=== PATIENT | female | born 1970 | race Caucasian/White ===

== ENCOUNTER 2017-05-05 17:14 | Inpatient (IN) ==
[2017-05-05 17:53] LABS: Bilirubin,Urine Negative (Negative); Blood,Urine Negative (Negative); Color,Urine Yellow (Yellow); Glucose,Urine (UA) Normal (Normal); Ketones,Urine Negative (Negative); Leukocyte Esterase,Urine Negative (Negative); Nitrite,Urine Negative (Negative); Protein,Urine Negative (Neg-Trace); Specific Gravity,Urine 1.009 (1.010-1.025); Urobilinogen,Urine Normal (Normal)
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
[2017-05-05 17:58] LABS: Amphetamine Screen,Urine Negative ng/mL (Cutoff=1000); Barbiturate Screen,Urine Negative ng/mL (Cutoff=200); Benzodiazepines Screen,Urine Negative ng/mL (Cutoff=200); Cannabinoid Screen,Urine Negative ng/mL (Cutoff = 50); Cocaine Screen,Urine Negative ng/mL (Cutoff= 300); Opiate Screen,Urine Negative ng/mL (Cutoff=300); Phencyclidine Screen,Urine Negative ng/mL (Cutoff=25)
[2017-05-05 18:01] LABS: Clarity,Urine Clear (Clear)
[2017-05-05 18:18] LABS: Basophils # 0.1 K/mcL (0.0-0.2); Basophils % 0.6 %; Eosinophils # 0.2 K/mcL (0.0-0.6); Eosinophils % 1.6 %; Hemoglobin 11.8 g/dL (11.5-15.4); Immature Granulocytes % 0.5 % (0-4); Lymphocytes # 2.6 K/mcL (0.6-4.6); Lymphocytes % 21.4 %; Mean Corpuscular HGB Conc 34.7 g/dL (31.6-35.5); Mean Corpuscular Hemoglobin 29.3 pg (28.0-33.3); Mean Corpuscular Volume 84.4 fL (83.0-100.0); Mean Platelet Volume 8.7 fL (9.4-12.4); Monocytes # 0.7 K/mcL (0.0-1.3); Monocytes % 5.8 %; Neutrophils # 8.5 K/mcL (1.6-8.9); Platelet Count 460 K/mcL (140-400); Red Blood Count 4.03 M/mcL (3.82-4.97); Red Cell Distribution Width 12.6 % (11.5-14.5); Segmented Neutrophils % 70.1 %
[2017-05-05 18:32] LABS: BUN/Creatinine Ratio 15 (6-26); Blood Urea Nitrogen 12 mg/dL (7-20); Calcium 9.6 mg/dL (8.6-10.8); Carbon Dioxide 22 mEq/L (19-29); Chloride 107 mEq/L (98-109); Glucose 101 mg/dL (70-99); Osmolality,Calculated 290 (280-300); Potassium 3.4 mEq/L (3.5-4.5); Sodium 140 mEq/L (136-145); eGFR For African Americans > 60 (> 60); eGFR For Non-African Americans > 60 (> 60)
[2017-05-05 18:44] LABS: Acetaminophen < 1.0 mcg/mL (10-30); Ethanol < 10 mg/dL (0-10); Salicylate < 5.0 mg/dL (15-30)
[2017-05-05] MEDS ORDERED: *HR* LORazepam 0.5 MG TABLET PO ONE (20:12)
[2017-05-05] MEDS ORDERED: *HR* LORazepam 2 MG/ML VIAL IM PRN (21:20)
[2017-05-05] MEDS ORDERED: MOM Conc 10 ML UD.LIQ PO PRN (21:20)
[2017-05-05] MEDS ORDERED: Mag Hydrox/Al Hydrox/Simeth 30 ML UDC PO PRN (21:20)
[2017-05-05] MEDS ORDERED: *HR* LORazepam 1 MG TABLET PO PRN (21:20)
[2017-05-05] MEDS ORDERED: Haloperidol Lactate 5 MG/ML VIAL IM PRN (21:20)
[2017-05-05] MEDS: Acetaminophen 325 MG TABLET PO PRN (22:02)
[2017-05-05] MEDS: traZODone 50 MG TABLET PO PRN (22:02)
[2017-05-06] MEDS ORDERED: FLUoxetine 20 MG CAPSULE PO SCH ×2 (09:00→13:50)
[2017-05-06] MEDS: Propranolol LA (24 HR) 80 MG CAP.SA.24H PO SCH (09:02)
[2017-05-06] MEDS: Losartan/HCTZ 50-12.5 TABLET PO SCH (09:02)
[2017-05-06] MEDS: *HR* Metformin 500 MG TABLET PO SCH (09:02)
[2017-05-06] MEDS ORDERED: FLUoxetine HCl Oral Soln 20 MG/5 ML UDC PO ONE (14:13)
[2017-05-06] MEDS: Acetaminophen 325 MG TABLET PO PRN (14:51)
[2017-05-06] MEDS: Gabapentin 100 MG CAPSULE PO SCH ×2 (14:52→20:40)
--- NOTE | 2017-05-06 16:03 | Psychiatry History & Physical ---
Date of Encounter: 05/06/17 Time of Encounter: 11:50 History of Present Illness Patient Stated Chief Complaint: "Im having anxiety and panic attack Medicare Admission Attestation: For traditional Medicare patients the provided hospital inpatient services are reasonable and necessary and in the case of services not specified as inpatient -only under 42 CFR 419.22 (n), that they are appropriately provided as inpatient services in accordance 42 CFR 412.3. For Critical Access Hospital the patient may reasonably be expected to be discharged or transferred to a hospital within 96 hours after admission to the Critical Access Hospital. History of Present Illness: Ms. Anne is a 47 year old female Past Med Surg Social Fam HX - Past Medical History Medical history: diabetes, GERD, hypertension, thyroid disease - Past Surgical History Surgical History: cholecystectomy - Social History Smoking Status: Never smoker Smokeless Tobacco Status: No Alcohol use: none Drug use: none - Family History Father Family Member Ethnicity: Non- Living Status: Hx Family Cardiac Disorders: Yes Medications & Allergies Cyclobenzaprine HCl 5 mg PO HS PRN 05/02/16 [History] Dicyclomine [Bentyl] 10 mg PO TID PRN 05/02/16 [History] Estradiol [Estrace] 1 mg PO DAILY 05/02/16 [History] FLUoxetine HCl [Prozac] 40 mg PO DAILY 05/02/16 [History] Levothyroxine [Synthroid] 150 mcg PO DAILY 05/02/16 [History] Omeprazole [PriLOSEC] 40 mg PO BID 05/02/16 [History] metFORMIN [Glucophage] 500 mg PO DAILY 05/02/16 [History] Propranolol LA (24 HR) [Inderal LA] 80 mg PO DAILY 05/05/17 [History] Aripiprazole [Abilify] 2.5 mg PO DAILY 05/06/17 [History] Buspirone HCl [Buspar] 5 mg PO TID 05/06/17 [History] LORazepam [Ativan] 1 mg PO DAILY PRN 05/06/17 [History] Losartan [Cozaar] 25 mg PO DAILY 05/06/17 [History] hydroCHLOROthiazide [Hydrochlorothiazide] 12.5 mg PO DAILY 05/06/17 [History] Allergies Oxycodone [From Percocet] Allergy (Verified 04/26/17 04:59) See Comments Results - Vital Signs Vital signs: Temp Pulse Resp BP Pulse Ox 97.8 F 79 20 121/71 97 05/06/17 09:00 05/06/17 09:00 05/06/17 09:00 05/06/17 09:00 05/05/17 20:34 - Labs Labs: Laboratory Last Values WBC 12.1 K/mcL (4.3-11.1) H 05/05/17 18:11 RBC 4.03 M/mcL (3.82-4.97) 05/05/17 18:11 Hgb 11.8 g/dL (11.5-15.4) 05/05/17 18:11 Hct 34.0 % (35.3-44.9) L 05/05/17 18:11 MCV 84.4 fL (83.0-100.0) 05/05/17 18:11 MCH 29.3 pg (28.0-33.3) 05/05/17 18:11 MCHC 34.7 g/dL (31.6-35.5) 05/05/17 18:11 RDW 12.6 % (11.5-14.5) 05/05/17 18:11 Plt Count 460 K/mcL (140-400) H 05/05/17 18:11 MPV 8.7 fL (9.4-12.4) L 05/05/17 18:11 Immature Gran % 0.5 % (0-4) 05/05/17 18:11 Seg Neutrophils % 70.1 % 05/05/17 18:11 Lymphocytes % 21.4 % 05/05/17 18:11 Monocytes % 5.8 % 05/05/17 18:11 Eosinophils % 1.6 % 05/05/17 18:11 Basophils % 0.6 % 05/05/17 18:11 Neutrophils # 8.5 K/mcL (1.6-8.9) 05/05/17 18:11 Lymphocytes # 2.6 K/mcL (0.6-4.6) 05/05/17 18:11 Monocytes # 0.7 K/mcL (0.0-1.3) 05/05/17 18:11 Eosinophils # 0.2 K/mcL (0.0-0.6) 05/05/17 18:11 Basophils # 0.1 K/mcL (0.0-0.2) 05/05/17 18:11 Sodium 140 mEq/L (136-145) 05/05/17 18:11 Potassium 3.4 mEq/L (3.5-4.5) L 05/05/17 18:11 Chloride 107 mEq/L (98-109) 05/05/17 18:11 Carbon Dioxide 22 mEq/L (19-29) 05/05/17 18:11 BUN 12 mg/dL (7-20) 05/05/17 18:11 Creatinine 0.81 mg/dL (0.57-1.11) 05/05/17 18:11 Est GFR ( Amer) > 60 (> 60) 05/05/17 18:11 Est GFR (Non-Af Amer) > 60 (> 60) 05/05/17 18:11 BUN/Creatinine Ratio 15 (6-26) 05/05/17 18:11 Glucose 101 mg/dL (70-99) H 05/05/17 18:11 POC Glucose 105 (58-89) H 05/06/17 06:41 Calculated Osmolality 290 (280-300) 05/05/17 18:11 Calcium 9.6 mg/dL (8.6-10.8) 05/05/17 18:11 Urine Color Yellow (Yellow) 05/05/17 17:41 Urine Clarity Clear (Clear) 05/05/17 17:41 Urine pH 6.0 pH Units (5.0-8.0) 05/05/17 17:41 Ur Specific [place] 1.009 (1.010-1.025) L 05/05/17 17:41 Urine Protein Negative mg/dL (Neg-Trace) 05/05/17 17:41 Urine Glucose (UA) Normal mg/dL (Normal) 05/05/17 17:41 Urine Ketones Negative mg/dL (Negative) 05/05/17 17:41 Urine Blood Negative (Negative) 05/05/17 17:41 Urine Nitrite Negative (Negative) 05/05/17 17:41 Urine Bilirubin Negative (Negative) 05/05/17 17:41 Urine Urobilinogen Normal mg/dL (Normal) 05/05/17 17:41 Ur Leukocyte Esterase Negative (Negative) 05/05/17 17:41 Salicylates < 5.0 mg/dL (15-30) L 05/05/17 18:11 Urine Opiates Screen Negative ng/mL (Dgelpg=172) 05/05/17 17:41 Acetaminophen < 1.0 mcg/mL (10-30) L 05/05/17 18:11 Ur Barbiturates Screen Negative ng/mL (Dmnqpp=484) 05/05/17 17:41 Ur Phencyclidine Scrn Negative ng/mL (Cutoff=25) 05/05/17 17:41 Ur Amphetamines Screen Negative ng/mL (Uuftvy=2048) 05/05/17 17:41 U Benzodiazepines Scrn Negative ng/mL (Ozgzue=323) 05/05/17 17:41 Urine Cocaine Screen Negative ng/mL (Cutoff= 300) 05/05/17 17:41 U Marijuana (THC) Screen Negative ng/mL (Cutoff = 50) 05/05/17 17:41 Ethyl Alcohol < 10 mg/dL (0-10) 05/05/17 18:11
--- NOTE | 2017-05-06 16:58 | Psychiatry History & Physical ---
Date of Encounter: 05/06/17 Time of Encounter: 11:00 History of Present Illness Medicare Admission Attestation: For traditional Medicare patients the provided hospital inpatient services are reasonable and necessary and in the case of services not specified as inpatient -only under 42 CFR 419.22 (n), that they are appropriately provided as inpatient services in accordance 42 CFR 412.3. For Critical Access Hospital the patient may reasonably be expected to be discharged or transferred to a hospital within 96 hours after admission to the Critical Access Hospital. 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 Patient was seen and evaluated at this morning, she was calm, cooperative and well related. She explained she was recently started on BuSpar and Abilify by primary care physician in the setting of recent increase in anxiety and depressive symptoms. Patient explained she self discontinued her abilify due to feelings of extreme discomfort when sitting and wanting to crawl out of skin. She symptoms comtinue to get progressively worse despite her PCP increasing her dose of Buspar with increasing frequency and duration of panic attacks. She also reports worsoning of deprdssive symptoms on her medications. She also has not been sleeping well the past couple of weeks. On review of symptoms, she denied other mood or psychotic symptoms incluidng recent symptoms of vladimir, AHVH/SI/HI. Patient denied recent or past us eof illicit drugs Admitted From: Home History of Present Illness: Ms. Anne is a 47 year old female Past Med Surg Social Fam HX - Past Medical History Medical history: diabetes, GERD, hypertension, thyroid disease - Past Surgical History Surgical History: cholecystectomy - Social History Smoking Status: Never smoker Smokeless Tobacco Status: No Alcohol use: none Drug use: none - Family History Father Family Member Ethnicity: Non- Living Status: Hx Family Cardiac Disorders: Yes Medications & Allergies Cyclobenzaprine HCl 5 mg PO HS PRN 05/02/16 [History] Dicyclomine [Bentyl] 10 mg PO TID PRN 05/02/16 [History] Estradiol [Estrace] 1 mg PO DAILY 05/02/16 [History] FLUoxetine HCl [Prozac] 40 mg PO DAILY 05/02/16 [History] Levothyroxine [Synthroid] 150 mcg PO DAILY 05/02/16 [History] Omeprazole [PriLOSEC] 40 mg PO BID 05/02/16 [History] metFORMIN [Glucophage] 500 mg PO DAILY 05/02/16 [History] Propranolol LA (24 HR) [Inderal LA] 80 mg PO DAILY 05/05/17 [History] Aripiprazole [Abilify] 2.5 mg PO DAILY 05/06/17 [History] Buspirone HCl [Buspar] 5 mg PO TID 05/06/17 [History] LORazepam [Ativan] 1 mg PO DAILY PRN 05/06/17 [History] Losartan [Cozaar] 25 mg PO DAILY 05/06/17 [History] hydroCHLOROthiazide [Hydrochlorothiazide] 12.5 mg PO DAILY 05/06/17 [History] Allergies Oxycodone [From Percocet] Allergy (Verified 04/26/17 04:59) See Comments Review of Systems Constitutional: Denies: fever, chills, weakness, weight change Eyes: Denies: eye pain, vision change Ears, Nose, Throat: Denies: ear pain, throat pain, dental pain, hearing loss, congestion Cardiovascular: Denies: chest pain, palpitations, dyspnea on exertion Respiratory: Denies: cough, dyspnea, wheezes Gastrointestinal: Denies: abdominal pain, nausea, vomiting, diarrhea, constipation Genitourinary male: Denies: urgency, dysuria, frequency, genital lesions Genitourinary female: Denies: urgency, dysuria, frequency, abnormal menses, dyspareunia Musculoskeletal: Denies: joint swelling, joint pain Integumentary: Denies: rash, lesions, pruritus Neurological: Denies: headache, weakness, numbness, memory loss Endocrine: Denies: fatigue, heat or cold intolerance Hematologic/Lymphatic: Denies: easy bruising, lymphadenopathy Allergic/Immunologic: Denies: urticaria, itchy eyes Results - Vital Signs Vital signs: Temp Pulse Resp BP Pulse Ox 97.8 F 79 20 121/71 97 05/06/17 09:00 05/06/17 09:00 05/06/17 09:00 05/06/17 09:00 05/05/17 20:34 - Labs Labs: Laboratory Last Values WBC 12.1 K/mcL (4.3-11.1) H 05/05/17 18:11 RBC 4.03 M/mcL (3.82-4.97) 05/05/17 18:11 Hgb 11.8 g/dL (11.5-15.4) 05/05/17 18:11 Hct 34.0 % (35.3-44.9) L 05/05/17 18:11 MCV 84.4 fL (83.0-100.0) 05/05/17 18:11 MCH 29.3 pg (28.0-33.3) 05/05/17 18:11 MCHC 34.7 g/dL (31.6-35.5) 05/05/17 18:11 RDW 12.6 % (11.5-14.5) 05/05/17 18:11 Plt Count 460 K/mcL (140-400) H 05/05/17 18:11 MPV 8.7 fL (9.4-12.4) L 05/05/17 18:11 Immature Gran % 0.5 % (0-4) 05/05/17 18:11 Seg Neutrophils % 70.1 % 05/05/17 18:11 Lymphocytes % 21.4 % 05/05/17 18:11 Monocytes % 5.8 % 05/05/17 18:11 Eosinophils % 1.6 % 05/05/17 18:11 Basophils % 0.6 % 05/05/17 18:11 Neutrophils # 8.5 K/mcL (1.6-8.9) 05/05/17 18:11 Lymphocytes # 2.6 K/mcL (0.6-4.6) 05/05/17 18:11 Monocytes # 0.7 K/mcL (0.0-1.3) 05/05/17 18:11 Eosinophils # 0.2 K/mcL (0.0-0.6) 05/05/17 18:11 Basophils # 0.1 K/mcL (0.0-0.2) 05/05/17 18:11 Sodium 140 mEq/L (136-145) 05/05/17 18:11 Potassium 3.4 mEq/L (3.5-4.5) L 05/05/17 18:11 Chloride 107 mEq/L (98-109) 05/05/17 18:11 Carbon Dioxide 22 mEq/L (19-29) 05/05/17 18:11 BUN 12 mg/dL (7-20) 05/05/17 18:11 Creatinine 0.81 mg/dL (0.57-1.11) 05/05/17 18:11 Est GFR ( Amer) > 60 (> 60) 05/05/17 18:11 Est GFR (Non-Af Amer) > 60 (> 60) 05/05/17 18:11 BUN/Creatinine Ratio 15 (6-26) 05/05/17 18:11 Glucose 101 mg/dL (70-99) H 05/05/17 18:11 POC Glucose 105 (58-89) H 05/06/17 06:41 Calculated Osmolality 290 (280-300) 05/05/17 18:11 Calcium 9.6 mg/dL (8.6-10.8) 05/05/17 18:11 Urine Color Yellow (Yellow) 05/05/17 17:41 Urine Clarity Clear (Clear) 05/05/17 17:41 Urine pH 6.0 pH Units (5.0-8.0) 05/05/17 17:41 Ur Specific [place] 1.009 (1.010-1.025) L 05/05/17 17:41 Urine Protein Negative mg/dL (Neg-Trace) 05/05/17 17:41 Urine Glucose (UA) Normal mg/dL (Normal) 05/05/17 17:41 Urine Ketones Negative mg/dL (Negative) 05/05/17 17:41 Urine Blood Negative (Negative) 05/05/17 17:41 Urine Nitrite Negative (Negative) 05/05/17 17:41 Urine Bilirubin Negative (Negative) 05/05/17 17:41 Urine Urobilinogen Normal mg/dL (Normal) 05/05/17 17:41 Ur Leukocyte Esterase Negative (Negative) 05/05/17 17:41 Salicylates < 5.0 mg/dL (15-30) L 05/05/17 18:11 Urine Opiates Screen Negative ng/mL (Rmldaw=120) 05/05/17 17:41 Acetaminophen < 1.0 mcg/mL (10-30) L 05/05/17 18:11 Ur Barbiturates Screen Negative ng/mL (Wilola=053) 05/05/17 17:41 Ur Phencyclidine Scrn Negative ng/mL (Cutoff=25) 05/05/17 17:41 Ur Amphetamines Screen Negative ng/mL (Apmfbh=4444) 05/05/17 17:41 U Benzodiazepines Scrn Negative ng/mL (Rjwzxr=836) 05/05/17 17:41 Urine Cocaine Screen Negative ng/mL (Cutoff= 300) 05/05/17 17:41 U Marijuana (THC) Screen Negative ng/mL (Cutoff = 50) 05/05/17 17:41 Ethyl Alcohol < 10 mg/dL (0-10) 05/05/17 18:11 Assessment and Plan (1) History of OCD (obsessive compulsive disorder) Current visit: Yes Status: Acute (2) Anxiety and depression Current visit: Yes Status: Acute
[2017-05-06] MEDS: *HR* LORazepam 1 MG TABLET PO PRN (20:40)
[2017-05-07] MEDS: FLUoxetine 20 MG CAPSULE PO SCH (08:44)
[2017-05-07] MEDS: Losartan/HCTZ 50-12.5 TABLET PO SCH (08:45)
[2017-05-07] MEDS: Propranolol LA (24 HR) 80 MG CAP.SA.24H PO SCH (08:45)
[2017-05-07] MEDS: *HR* Metformin 500 MG TABLET PO SCH (08:45)
[2017-05-07] MEDS: Gabapentin 100 MG CAPSULE PO SCH ×3 (08:46→20:26)
--- NOTE | 2017-05-07 14:54 | Psychiatry Progress Note ---
Date of Encounter: 05/07/17 Time of Encounter: 14:10 Subjective Interval history: Patient seen this afternoon in the office. She appeared less anxious and more relaxed. She reported mild to moderate improvement in her symptoms. She reported one episode of a panic attack last night which subsided without the need for a PRN medication. Has been able to tolerate increase dose of Prozac and Gabapentin without any noted side effect. She is sleeping well. Continues to endorse excessive worrying especially about her new job and depressive symptoms. Staff noted patient is more interactive with other clients. Family came to visit yesterday and patient reportedly had a good time with them. She also spent a long time on the phone talking after they left. On review of symptoms, she denied other mood or psychotic symptoms including AH/VH/SI/HI. We will continue with current management. Review of Systems Constitutional: Denies: fever, chills, weakness, weight change Eyes: Denies: eye pain, vision change Ears, Nose, Throat: Denies: ear pain, throat pain, dental pain, hearing loss, congestion Cardiovascular: Denies: chest pain, palpitations, dyspnea on exertion Respiratory: Denies: cough, dyspnea, wheezes Gastrointestinal: Denies: abdominal pain, nausea, vomiting, diarrhea, constipation Musculoskeletal: Denies: joint swelling, joint pain Neurological: Denies: headache, weakness, numbness, memory loss Objective: Exam Patient orientation: Yes Person, Yes Time, Yes Place Level of alertness: Alert Patient appearance: Appropriate, Well Groomed Behavior: calm, cooperative, anxious Psychomotor activity: Normal Eye contact: Maintains Eye Contact Mood description: Depressed Affect description: full range Speech pattern: Normal rate, Normal rhythm, Normal tone Speech volume: Normal Thought process: Linear, Goal Oriented Thought content: No Suicidal ideation, No Homicidal ideation, No Overt delusions Perceptual disturbances: No Auditory hallucinations, No Visual hallucinations Judgment: Fair Insight: Partial Results - Vital Signs Vital Signs: Temp Pulse Resp BP Pulse Ox 98 F 76 16 120/70 97 05/07/17 09:00 05/07/17 09:00 05/07/17 09:00 05/07/17 09:00 05/05/17 20:34 - Labs Labs: Laboratory Results - last 24 hr 05/06/17 05/07/17 16:46 06:39 POC Glucose 117 H 104 H Assessment and Plan (1) History of OCD (obsessive compulsive disorder) Current visit: Yes Status: Acute (2) Anxiety and depression Current visit: Yes Status: Acute Consult Discharge Plan - Plan Referrals: Chase Hooker [facility] [Outside] - 05/16/17 6:00 pm (The above appointment is with Alicia Locke for mental health counseling services.) Liana Torres CNP [Partnered Physician] - 05/17/17 3:20 pm (The above appointment is with Hector Torres, primary care provider, for ongoing health and medication management services. )
[2017-05-07] MEDS: traZODone 50 MG TABLET PO PRN (20:26)
[2017-05-07] MEDS: *HR* LORazepam 1 MG TABLET PO PRN (20:26)
[2017-05-07] MEDS: Acetaminophen 325 MG TABLET PO PRN (20:28)
[2017-05-08] MEDS: Propranolol LA (24 HR) 80 MG CAP.SA.24H PO SCH (08:38)
[2017-05-08] MEDS: FLUoxetine 20 MG CAPSULE PO SCH (08:38)
[2017-05-08] MEDS: *HR* Metformin 500 MG TABLET PO SCH (08:38)
[2017-05-08] MEDS: Losartan/HCTZ 50-12.5 TABLET PO SCH (08:38)
[2017-05-08] MEDS: Gabapentin 100 MG CAPSULE PO SCH ×3 (08:38→21:14)
[2017-05-08] MEDS: Acetaminophen 325 MG TABLET PO PRN ×2 (12:03→22:29)
--- NOTE | 2017-05-08 13:17 | Psychiatry Progress Note ---
Date of Encounter: 05/08/17 Time of Encounter: 13:00 Subjective Interval history: Patient seen this afternoon. There were no reported incident overnigh. She reported moderate improvement in both symptoms of anxiety and depression. Reports significant decrease in intensity of anxiety and is able to breath through a symptoms without the need for PRM med. Reports increase in energy level and motivation. She is compliant with her medications and denied any noted side effect. Sleeping and eating well. On review of symptoms, she denied other mood or psychotic symptoms including AH/VH/SI/HI. Will increase dose of Gabapentin to help optimize stabilization. Review of Systems Constitutional: Denies: fever, chills, weakness, weight change Eyes: Denies: eye pain, vision change Ears, Nose, Throat: Denies: ear pain, throat pain, dental pain, hearing loss, congestion Cardiovascular: Denies: chest pain, palpitations, dyspnea on exertion Respiratory: Denies: cough, dyspnea, wheezes Gastrointestinal: Denies: abdominal pain, nausea, vomiting, diarrhea, constipation Musculoskeletal: Denies: joint swelling, joint pain Neurological: Denies: headache, weakness, numbness, memory loss Psychiatric: Reports: depression, anxiety, panic attacks Objective: Exam Patient orientation: Yes Person, Yes Time, Yes Place Level of alertness: Alert Patient appearance: Appropriate, Well Groomed Behavior: calm, cooperative Psychomotor activity: Normal Eye contact: Maintains Eye Contact Mood description: Euthymic/stable Affect description: congruent with mood, full range Speech pattern: Normal rate, Normal rhythm, Normal tone Speech volume: Normal Thought process: Linear, Goal Oriented Thought content: No Suicidal ideation, No Homicidal ideation, No Overt delusions Perceptual disturbances: No Auditory hallucinations, No Visual hallucinations Judgment: Fair Insight: Partial Results - Vital Signs Vital Signs: Temp Pulse Resp BP Pulse Ox 97.8 F 87 16 136/75 97 05/08/17 09:00 05/08/17 09:00 05/08/17 09:00 05/08/17 09:00 05/05/17 20:34 - Labs Labs: Laboratory Results - last 24 hr 05/07/17 05/08/17 16:07 07:00 POC Glucose 128 H 107 H Assessment and Plan (1) History of OCD (obsessive compulsive disorder) Current visit: Yes Status: Acute (2) Anxiety and depression Current visit: Yes Status: Acute Consult Discharge Plan - Plan Referrals: Chase Merritt [facility] [Outside] - 05/16/17 6:00 pm (The above appointment is with Alicia Locke for mental health counseling services.) Liana Torres CNP [Partnered Physician] - 05/17/17 3:20 pm (The above appointment is with Hector Torres, primary care provider, for ongoing health and medication management services. )
[2017-05-08] MEDS: *HR* LORazepam 1 MG TABLET PO PRN (21:16)
[2017-05-09] MEDS: Propranolol LA (24 HR) 80 MG CAP.SA.24H PO SCH (08:14)
[2017-05-09] MEDS: Losartan/HCTZ 50-12.5 TABLET PO SCH (08:14)
[2017-05-09] MEDS: *HR* Metformin 500 MG TABLET PO SCH (08:14)
[2017-05-09] MEDS: FLUoxetine 20 MG CAPSULE PO SCH (08:14)
[2017-05-09] MEDS: Gabapentin 100 MG CAPSULE PO SCH (08:15)
--- NOTE | 2017-05-09 09:03 | Discharge Summary ---
Date of Encounter: 05/09/17 Time of Encounter: 10:30 Diagnosis - Discharge Diagnosis (1) History of OCD (obsessive compulsive disorder) Status: Chronic (2) Anxiety and depression Status: Resolved Medications - Discharge Medications Prescriptions: FLUoxetine HCl [Prozac] 60 mg PO DAILY #90 Gabapentin [Neurontin] 200 mg PO TID #180 Propranolol LA (24 HR) [Inderal LA] 80 mg PO DAILY #30 traZODone [TraZODone] 50 mg PO HS PRN #30 tab PRN Reason: Insomnia Estradiol [Estrace] 1 mg PO DAILY 05/02/16 [History] FLUoxetine HCl [Prozac] 40 mg PO DAILY 05/02/16 [History] Omeprazole [PriLOSEC] 40 mg PO BID 05/02/16 [History] metFORMIN [Glucophage] 500 mg PO DAILY 05/02/16 [History] LORazepam [Ativan] 1 mg PO DAILY PRN 05/06/17 [History] Losartan [Cozaar] 25 mg PO DAILY 05/06/17 [History] hydroCHLOROthiazide [Hydrochlorothiazide] 12.5 mg PO DAILY 05/06/17 [History] Cyclobenzaprine [Flexeril] 5 mg PO HS PRN tab 05/09/17 [Rx] Dicyclomine [Bentyl] 10 mg PO TID PRN 05/09/17 [Rx] FLUoxetine HCl [Prozac] 60 mg PO DAILY #90 05/09/17 [Rx] Gabapentin [Neurontin] 200 mg PO TID #180 05/09/17 [Rx] LORazepam [Ativan] 1 mg PO BID PRN tab 05/09/17 [Rx] Levothyroxine [Synthroid] 150 mcg PO 0630 tab 05/09/17 [Rx] Propranolol LA (24 HR) [Inderal LA] 80 mg PO DAILY #30 05/09/17 [Rx] traZODone [TraZODone] 50 mg PO HS PRN #30 tab 05/09/17 [Rx] Allergies Oxycodone [From Percocet] Allergy (Verified 04/26/17 04:59) See Comments Provider Date of admission: 05/05/17 20:43 Primary care physician: PCP NO Consults: 05/05/17 22:03 Consult to Pastoral Services [CONS] Routine Comment: Discharging clinician: Beryl Angela Assessment and Plan - Patient/Caregiver Discharge Instructions Activity: resume usual activities as tolerated Diet: regular diet - Follow up Plan Follow up with: Chase Hooker [facility] [Outside] - 05/16/17 6:00 pm (The above appointment is with Alicia Locke for mental health counseling services.) iLana Torres CNP [Partnered Physician] - 05/17/17 3:20 pm (The above appointment is with Hector Torres, primary care provider, for ongoing health and medication management services. ) Disposition: Home, Self-Care Hospital Course Hospital course: Ms. 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 Patient was transferred to the unit for stabilization. Patient progressively responded to her medications and in showing significant improvement in her anxiety and depressive symptoms with resolution of panic attacks and increased motivations and mood. She has been compliant with her medications and denied any noted side effects. She is sleeping and eating well.. Patient was seen and evaluated this morning. She was cam, cooperative and well related. She reported doing well and greed to her discharge today. On review of symptoms, she denied any mood, anxiety or psychotic symptoms including AH/VH/SI/HI. Patient logical and goal directed with good insight, impulse control and judgment. She is psychiatrically stable at this time and not deem a threat to self or others and is able to care for herself. - Time Spent with Patient Total time spent providing and/or coordinating discharge services: Quality - Multiple Antipsychotics Patient discharged on 2 or more antipsychotic medications: No Procedures - Procedures Procedures: Medication Management, Crisis Stabilization, Supportive Therapy, Group Therapy, Psychoeducational Therapy Mental Status Exam - Mental Status Exam Patient orientation: Yes Person, Yes Time, Yes Place Level of alertness: Alert Patient appearance: Appropriate, Well Groomed Behavior: calm, cooperative Psychomotor activity: Normal Eye contact: Maintains Eye Contact Mood description: Euthymic/stable Affect description: congruent with mood, full range Speech pattern: Normal rate, Normal rhythm, Normal tone Speech Volume: Normal Thought process: Linear, Goal Oriented Thought Content: No Suicidal ideation, No Homicidal ideation, No Overt delusions Perceptual Disturbances: No Auditory hallucinations, No Visual hallucinations Judgment: Fair Insight: Partial
[2017-05-09 09:19] VITALS: BP 128/69
== END 2017-05-09 13:00 | disposition home or self-care (01) | DRG 882 ==
LOC: EMEROO 17:14 → 1ANU 20:43 → SUATTDRO 20:43 → 1ANU 20:50
PROVIDERS: ADMIT Psychiatry & Neurology Psychiatry; ATTEND Psychiatry & Neurology Psychiatry

== ENCOUNTER 2017-07-13 14:42 | Inpatient (IN) ==
[2017-07-13] MEDS ORDERED: *HR* HYDROcodone/Acet 5/325 mg TABLET PO PRN (20:21)
[2017-07-13] MEDS ORDERED: Naloxone 0.4 MG/ML INJ IVP PRN (20:23)
[2017-07-13] MEDS ORDERED: *HR* Dextrose 50 % in Water (Syg) 50 ML SYRINGE IVP PRN (20:29)
[2017-07-13] MEDS ORDERED: D5% in Water 1,000 ML IVC PRN (20:29)
[2017-07-13] MEDS ORDERED: Dextrose Gel 15 GM PO PRN ×2 (20:29)
--- NOTE | 2017-07-13 20:38 | Internal Med History&Physical ---
<Quinten Vázquez - Last Filed: 07/13/17 20:31> Date of Encounter: 07/13/17 Time of Encounter: 20:31 Assessment and Plan (1) Colitis Current visit: Yes Status: Acute Epigastric and lower abdominal pain, Ct concerning for enterocolitis. Patient may have underlying ulcerative colitis; pending further workup. She does not appear toxic, lactic acid 3 on arrival, recheck reveals a LA of 1.9, WBC 12.1, Will start Ciprofloxacin and flagyl, check CBC in am. IVF 0.9 NS 100ml/hr. Consider GI evaluation if patients condition declines. (2) Abdominal pain Current visit: Yes Status: Acute In the setting of colitis, will manage pain with [place] 5/325 Q4 hr prn. Consider adding Morphine of norco does not controll pain. Qualifiers: Abdominal location: generalized Qualified Code(s): R10.84 - Generalized abdominal pain (3) Diabetes mellitus type 2 in obese Current visit: Yes Status: Acute Stop metformin and start LSSIC, ac/hs checks Internal Medicine - H&P: HPI Chief complaint: abdominal pain, nausea and diarrhea Admitted From: Home Plans for Post Hospital Care: Home History of present illness: Ms. Anne is a 47 year old female with a PMH of HTN, DMII, hypothyroidism HTN , Gerd, anxiety/depression and abdominal polyps presents to [facility] today with abdominal pain and diarrhea with mucus in the stool. She reports that the abdominal pain began this morning but that the diarrhea has been ongoing for greater than 2.5 months. The pain is epigastric and in the lower abdomen, she admits to diarrhea x4 watery episodes today, nausea without vomiting, chills, fevers, and sweating. Ct abdomen in [facility] reveals possible colitis vs enterocolitis, lactic acid is 3. CBC and BMP unremarkable. Past Med Surg Social Fam HX - Past Medical History Medical history: diabetes, fibromyalgia, GERD, hypertension, thyroid disease Psychiatric history: anxiety, depression, previous psychiatric hospitalization - Past Surgical History Surgical History: appendectomy, , cholecystectomy, hysterectomy - Social History Smoking Status: Former smoker Smokeless Tobacco Status: No Alcohol use: none Drug use: none - Family History Father Age: 57 Family Member Ethnicity: Non- Living Status: Age at : 57 Cause of : CHF Hx Family Cardiac Disorders: Yes Hx Family Respiratory Disorders: Yes Hx Family Cancer: No Hx Family GI Disorders: Yes Hx Family Genitourinary Disorders: No Hx Family Endocrine Disorder: No Hx Family Musculoskeletal Disorders: No Hx Family Neuromuscular Disorders: Yes (Uncle) Hx Family Neurologic Disorders: No Hx Family HEENT Disorders: No Hx Family Autoimmune Disorders: No Hx Family Reproductive Disorders: No Hx Family Psychosocial Disorders: No Hx Family Medical Disorders: No Mother Age: 73 Family Member Ethnicity: Non- Living Status: Still Living Hx Family Cardiac Disorders: Yes Hx Family Respiratory Disorders: Yes Hx Family Cancer: No Hx Family GI Disorders: Yes Hx Family Genitourinary Disorders: No Hx Family Endocrine Disorder: No Hx Family Musculoskeletal Disorders: Yes Hx Family Neuromuscular Disorders: No Hx Family Neurologic Disorders: Yes (Brother MS) Hx Family HEENT Disorders: No Hx Family Autoimmune Disorders: No Hx Family Reproductive Disorders: No Hx Family Psychosocial Disorders: Yes Hx Family Medical Disorders: No Internal Medicine - H&P: Meds Estradiol [Estrace] 1 mg PO DAILY 05/02/16 [History] Omeprazole [PriLOSEC] 40 mg PO QAM 05/02/16 [History] metFORMIN [Glucophage] 500 mg PO DAILY 05/02/16 [History] Losartan [Cozaar] 25 mg PO DAILY 05/06/17 [History] hydroCHLOROthiazide [Hydrochlorothiazide] 12.5 mg PO DAILY 05/06/17 [History] Cyclobenzaprine [Flexeril] 5 mg PO HS PRN tab 05/09/17 [Rx] Levothyroxine [Synthroid] 150 mcg PO 0630 tab 05/09/17 [Rx] Propranolol LA (24 HR) [Inderal LA] 80 mg PO DAILY #30 05/09/17 [Rx] traZODone [TraZODone] 50 mg PO HS PRN #30 tab 05/09/17 [Rx] Dicyclomine [Bentyl] 10 mg PO TID PRN 07/13/17 [History] LORazepam [Ativan] 1 mg PO DAILY 07/13/17 [History] Lexapro 10 mg PO DAILY 07/13/17 [History] 3 Allergy/AdvReac Type Severity Reaction Status Date / Time amitriptyline Allergy Hives Verified 06/23/17 14:57 Oxycodone [From Percocet] Allergy Vomiting Verified 07/13/17 16:54 risperidone [From Risperdal] Allergy See Verified 06/23/17 14:57 Comments clarithromycin [From Biaxin] AdvReac Intermediate Vomiting Verified 07/13/17 16: 54 Biaxin AdvReac Severe Vomiting Uncoded 07/13/17 16:54 All Systems PM: A 10-system review of systems was performed and is negative for pertinent findings except as documented above in the HPI. - Constitutional Constitutional: chills, excessive sweating, fatigue, fever(s) (afebrile at this time.) - EENT Eyes: no change in vision, no discharge, no pain, no photophobia Ears: no ear discharge, no ear pain, no tinnitus Nose, mouth and throat: no dysphagia, no nasal discharge, no neck pain, no sore throat - Cardiovascular Cardiovascular ROS IM: no chest pain, no diaphoresis, no dyspnea, no lightheadedness, no palpitations, no syncope - Respiratory Respiratory: no cough, no dyspnea, no wheezing, no excessive phlegm production - Gastrointestinal Gastrointestinal: as per HPI, change in bowel habits, change in stool character , nausea, no abdominal pain, no coffee ground emesis, no diarrhea, no hematemesis, no hematochezia, no melena, no vomiting - Genitourinary Genitourinary: no change in urinary stream, no dysuria, no flank pain, no hematuria - Musculoskeletal Musculoskeletal ROS IM: no numbness, no tingling - Integumentary Integumentary IM: no rash, no unusual bruising - Neurological Neurological ROS: no confusion, no convulsions, no focal weakness, no numbness, no tingling, no tremor(s) - Hematologic/Lymphatic Hematologic/Lymphatic: no easy bruising - Constitutional Vitals: Temp Pulse Resp BP Pulse Ox 97.8 F 91 16 139/77 96 07/13/17 16:21 07/13/17 16:21 07/13/17 16:21 07/13/17 16:21 07/13/17 16:21 General appearance: Present: cooperative, A&O X 3, no acute distress, answers questions appropriately - Head Head exam: Present: atraumatic, normocephalic - Eye Eye exam: Present: PERRL, conjuntiva pink, sclera anicteric Pupils: Present: PERRL - Neck Neck exam general surgery: Present: supple, trachea midline. Absent: lymphadenopathy - Respiratory Respiratory exam: Present: CTAB. Absent: accessory muscle use, rales, rhonchi, wheezes - Cardiovascular Cardiovascular exam: Present: RRR, +S1, +S2. Absent: diastolic murmur, gallop, rubs, systolic murmur - GI/Abdominal GI/Abdominal exam: Present: normal bowel sounds, soft, tenderness, no peritoneal signs. Absent: distended, firm - Extremities Exam Extremities exam: Present: warm, radial pulses palpable and symmetrical. Absent : calf tenderness, cyanotic, pedal edema - Neurological Exam Neurological exam: Present: CN II-XII intact, oriented X3, no focal deficits. Absent: pronater drift, facial droop, speech deficit - Skin Skin exam: Present: dry, intact Internal Med - H&P Results - Diagnostic Studies CT scan - abdomen Status: image reviewed by me Additional comments: Ct via [facility] Audi show that there is fluid present within the colon indicating possible colitis, vs enterocolitis. <Sofia Burnham - Last Filed: 07/13/17 21:54> Date of Encounter: 07/13/17 Time of Encounter: 20:55 Internal Medicine - H&P: HPI History of present illness: Ms. Anne is a 47 year old female All Systems PM: A 10-system review of systems was performed and is negative for pertinent findings except as documented above in the HPI. - Constitutional Vitals: Temp Pulse Resp BP Pulse Ox 98.1 F 77 18 126/76 96 07/13/17 20:46 07/13/17 20:46 07/13/17 20:46 07/13/17 20:46 07/13/17 20:46 - Attending Attestation I have independently seen and examined the patient. Patient transferred from [facility] for management of abd pain secondary to colitis. Pt started on empiric IV abx. IV fluids, pain control She was initially noted to have elevated LA which has now normalized Pt reports of improvement in her pain. Reports history of having polpys for which she undergoes surveillance colonoscopy every five years, last colonoscopy was five years ago. CT abd/pelvis findings consistent with colitis. Will start clear liquid diet at this time and advance as tolerated Resumed patient's home medications Case discussed with ALVARO Vázquez, I agree with her documented findings, assessment, and plan except as listed above.
[2017-07-13] MEDS ORDERED: Gabapentin 100 MG CAPSULE PO SCH (21:00)
[2017-07-13] MEDS: 0.9 % Sodium Chloride 1,000 ML IVC SCH (21:24)
[2017-07-13] MEDS: Insulin LISPRO 300 UNITS/3 ML VIAL SQ SCH (21:28)
[2017-07-13] MEDS: Ondansetron 4 MG/2 ML VIAL IVP PRN (21:41)
[2017-07-13] MEDS: *HR* LORazepam 1 MG TABLET PO SCH (21:41)
[2017-07-13] MEDS: MetroNIDAZOLE 500 MG/100 ML 500 MG/100 ML BAG IVPB SCH (22:33)
[2017-07-13] MEDS: *HR* HYDROcodone/Acet 5/325 mg TABLET PO PRN (22:36)
[2017-07-13] MEDS: traZODone 50 MG TABLET PO PRN (22:37)
[2017-07-14] MEDS ORDERED: MetroNIDAZOLE 500 MG/100 ML 500 MG/100 ML BAG IVPB SCH
[2017-07-14 04:02] LABS: Basophils % 0.3 %; Eosinophils # 0.3 K/mcL (0.0-0.6); Hematocrit 29.8 % (35.3-44.9); Immature Granulocytes % 0.8 % (0-4); Lymphocytes # 2.4 K/mcL (0.6-4.6); Lymphocytes % 24.2 %; Mean Corpuscular HGB Conc 33.6 g/dL (31.6-35.5); Mean Corpuscular Volume 86.4 fL (83.0-100.0); Monocytes # 0.6 K/mcL (0.0-1.3); Monocytes % 5.7 %; Neutrophils # 6.4 K/mcL (1.6-8.9); Platelet Count 400 K/mcL (140-400); Red Blood Count 3.45 M/mcL (3.82-4.97); Red Cell Distribution Width 12.9 % (11.5-14.5)
[2017-07-14 04:14] LABS: BUN/Creatinine Ratio 14 (6-26); Blood Urea Nitrogen 8 mg/dL (7-20); Calcium 8.3 mg/dL (8.6-10.8); Carbon Dioxide 23 mEq/L (19-29); Chloride 108 mEq/L (98-109); Glucose 110 mg/dL (70-99); Magnesium 1.6 mg/dL (1.6-2.6); Osmolality,Calculated 287 (280-300); Phosphorous 2.7 mg/dL (2.3-4.7); Potassium 2.8 mEq/L (3.5-4.5); Sodium 139 mEq/L (136-145); eGFR For African Americans > 60 (> 60); eGFR For Non-African Americans > 60 (> 60)
[2017-07-14] MEDS: *HR* Heparin 5,000 UNIT/ML VIAL SQ SCH ×2 (05:56→17:27)
[2017-07-14] MEDS: MetroNIDAZOLE 500 MG/100 ML 500 MG/100 ML BAG IVPB SCH ×3 (05:56→20:59)
[2017-07-14] MEDS: Insulin LISPRO 300 UNITS/3 ML VIAL SQ SCH ×4 (07:58→20:58)
[2017-07-14] MEDS: 0.9 % Sodium Chloride 1,000 ML IVC SCH ×4 (08:03→21:08)
[2017-07-14] MEDS: Propranolol LA (24 HR) 80 MG CAP.SA.24H PO SCH (08:04)
[2017-07-14] MEDS: hydroCHLOROthiazide 25 MG TABLET PO SCH (08:04)
[2017-07-14] MEDS ORDERED: FLUoxetine 20 MG CAPSULE PO SCH (09:00)
[2017-07-14] MEDS: Ondansetron 4 MG/2 ML VIAL IVP PRN ×2 (09:38→18:23)
[2017-07-14] MEDS: *HR* HYDROcodone/Acet 5/325 mg TABLET PO PRN (09:38)
[2017-07-14] MEDS ORDERED: Potassium Chloride Elixir 20 MEQ/15 ML UDC PO SCH (11:15)
--- NOTE | 2017-07-14 13:56 | Internal Med Progress Note ---
Date of Encounter: 07/14/17 Time of Encounter: 13:54 - Assessment and plan (1) Colitis Current Visit: Yes Status: Acute Assessment and plan: Patient presented with abdominal pain and diarrhea. CT abdomen/pelvis shows changes suggestive of enterocolitis. Patient does have remote history of ulcerative colitis, lost to follow-up. Continue IV hydration, supportive care with when necessary antiemetics, pain control with when necessary IV morphine. Clear liquid diet as tolerated. Monitor and replete electrolytes. Check stool WBC, C. difficile toxin and GI panel. (2) Hypothyroidism Current Visit: Yes Status: Chronic Assessment and plan: Continue levothyroxine. Check TSH. Qualifiers: Hypothyroidism type: unspecified Qualified Code(s): E03.9 - Hypothyroidism , unspecified (3) Essential hypertension Current Visit: Yes Status: Chronic (4) Anxiety and depression Current Visit: Yes Status: Chronic (5) Diabetes mellitus type 2 in obese Current Visit: Yes Status: Chronic Assessment and plan: Accu-Chek blood glucose monitoring with sliding scale insulin as needed. Diabetic clear liquid diet as tolerated. (6) Hypokalemia Current Visit: Yes Status: Acute Assessment and plan: Secondary to GI losses. Replace with oral and IV potassium chloride. Recheck potassium and magnesium tomorrow. - Subjective Interval history: Improving abdominal pain; still has some nausea and diarrhea; no fever/chills; was following up with GI for possible IBD, was prescribed medicine for UC, found it was too expensive and gradually was lost to f/up; - Constitutional Vitals: Temp Pulse Resp BP Pulse Ox 98.1 F 84 16 123/68 96 07/14/17 10:11 07/14/17 10:11 07/14/17 10:11 07/14/17 10:11 07/14/17 10:11 General appearance: Present: cooperative, A&O X 3, no acute distress, answers questions appropriately - Respiratory Respiratory exam: Present: CTAB. Absent: accessory muscle use, rales, rhonchi, wheezes - Cardiovascular Cardiovascular exam: Present: RRR, +S1, +S2. Absent: diastolic murmur, gallop, rubs, systolic murmur - GI/Abdominal GI/Abdominal exam: Present: normal bowel sounds, soft (diffuse tenderness in lower abdomen, epigastric area), no peritoneal signs. Absent: distended, tenderness - Extremities Exam Extremities exam: Present: full ROM, warm, radial pulses palpable and symmetrical. Absent: calf tenderness, cyanotic, pedal edema Internal Medicine: Result - Labs CBC & Chem 7: 07/14/17 03:40 07/15/17 04:30 Labs: Short CBC 07/14/17 Range/Units 03:40 WBC 9.8 (4.3-11.1) K/mcL Hgb 10.0 L (11.5-15.4) g/dL Hct 29.8 L (35.3-44.9) % Plt Count 400 (140-400) K/mcL Neutrophils # 6.4 (1.6-8.9) K/mcL BMP 07/14/17 03:40 Sodium 139 Potassium 2.8 L Chloride 108 Carbon Dioxide 23 BUN 8 Creatinine 0.59 Glucose 110 H Calcium 8.3 L Consult Discharge Plan - Plan Referrals: Liana Torres, SURFACE MINER [Primary Care Provider] -
[2017-07-14] MEDS ORDERED: Acetaminophen 325 MG TABLET PO ONE (20:33)
[2017-07-14] MEDS: *HR* LORazepam 1 MG TABLET PO SCH (20:58)
[2017-07-14 21:40] LABS: Adenovirus F 40/41 PCR Not detected (Not detect); Astrovirus PCR Not detected (Not detect); C.difficile Toxin A/B by PCR Not detected (Not detect); Campylobacter by PCR Not detected (Not detect); Cryptosporidium by PCR Not detected (Not detect); Cyclospora cayetanensis PCR Not detected (Not detect); E. coli O157 by PCR Not detected (Not detect); Entamoeba histolytica PCR Not detected (Not detect); Enteroaggregative E.coli(EAEC) Not detected (Not detect); Enteropathogenic E.coli(EPEC) Not detected (Not detect); Enterotoxigenic E.coli (ETEC) Not detected (Not detect); Giardia lamblia PCR Not detected (Not detect); Norovirus GI/GII PCR Not detected (Not detect); Plesiomonas shigelloides PCR Not detected (Not detect); Rotavirus A PCR Not detected (Not detect); Salmonella PCR Not detected (Not detect); Sapovirus PCR Not detected (Not detect); Shig/EnteroinvasiveE coli EIEC Not detected (Not detect); Shigalike tox-prod E coli STEC Not detected (Not detect); Vibrio PCR Not detected (Not detect); Vibrio cholerae PCR Not detected (Not detect); Yersinia enterocolitica PCR Not detected (Not detect)
[2017-07-15] MEDS: traZODone 50 MG TABLET PO PRN (00:12)
[2017-07-15 05:46] LABS: Calcium 8.5 mg/dL (8.6-10.8); Carbon Dioxide 21 mEq/L (19-29); Chloride 109 mEq/L (98-109); Glucose 109 mg/dL (70-99); Osmolality,Calculated 291 (280-300); Sodium 142 mEq/L (136-145); eGFR For African Americans > 60 (> 60); eGFR For Non-African Americans > 60 (> 60)
[2017-07-15] MEDS: *HR* Heparin 5,000 UNIT/ML VIAL SQ SCH ×2 (05:48→18:35)
[2017-07-15] MEDS: MetroNIDAZOLE 500 MG/100 ML 500 MG/100 ML BAG IVPB SCH ×3 (06:10→21:52)
[2017-07-15 06:33] LABS: BUN/Creatinine Ratio 5 (6-26); Blood Urea Nitrogen 3 mg/dL (7-20)
[2017-07-15] MEDS: Insulin LISPRO 300 UNITS/3 ML VIAL SQ SCH ×4 (07:15→21:52)
[2017-07-15] MEDS: Ondansetron 4 MG/2 ML VIAL IVP PRN (09:08)
[2017-07-15] MEDS: hydroCHLOROthiazide 25 MG TABLET PO SCH (09:09)
[2017-07-15] MEDS: Propranolol LA (24 HR) 80 MG CAP.SA.24H PO SCH (09:09)
[2017-07-15] MEDS: Acetaminophen 325 MG TABLET PO PRN ×2 (11:40→20:09)
[2017-07-15] MEDS ORDERED: Potassium Chloride Elixir 20 MEQ/15 ML UDC PO ONE (14:18)
--- NOTE | 2017-07-15 15:13 | Internal Med Progress Note ---
Date of Encounter: 07/15/17 Time of Encounter: 15:12 - Assessment and plan (1) Colitis Current Visit: Yes Status: Acute Assessment and plan: Patient presented with abdominal pain and diarrhea. CT abdomen/pelvis shows changes suggestive of enterocolitis. Patient does have remote history of ulcerative colitis, lost to follow-up. Continue IV antibiotics- Ciprofloxacin and Flagyl. Continue supportive care with when necessary antiemetics, pain control with when necessary IV morphine. Advance diet as tolerated. Monitor and replete electrolytes. Stool WBC noted to be positive, C. difficile toxin and GI panel are negative. (2) Hypothyroidism Current Visit: Yes Status: Chronic Assessment and plan: Continue levothyroxine. TSH noted to be elevated from 2months ago- now 7; check FT4 and FT3; advised patient about her Synthroid pill from other meds and food by at least 30min. Qualifiers: Hypothyroidism type: unspecified Qualified Code(s): E03.9 - Hypothyroidism , unspecified (3) Essential hypertension Current Visit: Yes Status: Chronic (4) Anxiety and depression Current Visit: Yes Status: Chronic (5) Diabetes mellitus type 2 in obese Current Visit: Yes Status: Chronic Assessment and plan: Accu-Chek blood glucose monitoring with sliding scale insulin as needed. Diabetic soft diet as tolerated. - Subjective Interval history: Improving abdominal pain, tolerates liquid diet; improving diarrhea, had only once episode today so far; no nausea, emesis; - Constitutional Vitals: Temp Pulse Resp BP Pulse Ox 98.5 F 72 18 128/77 96 07/15/17 11:03 07/15/17 11:03 07/15/17 11:03 07/15/17 11:03 07/15/17 11:03 General appearance: Present: cooperative, A&O X 3, no acute distress, answers questions appropriately - Respiratory Respiratory exam: Present: CTAB. Absent: accessory muscle use, rales, rhonchi, wheezes - Cardiovascular Cardiovascular exam: Present: RRR, +S1, +S2. Absent: diastolic murmur, gallop, rubs, systolic murmur - GI/Abdominal GI/Abdominal exam: Present: normal bowel sounds, soft, no peritoneal signs. Absent: distended, tenderness - Extremities Exam Extremities exam: Present: full ROM, warm, radial pulses palpable and symmetrical. Absent: calf tenderness, cyanotic, pedal edema Internal Medicine: Result - Labs CBC & Chem 7: 07/14/17 03:40 07/15/17 04:30 Labs: BMP 07/15/17 04:30 Sodium 142 Potassium 3.0 L Chloride 109 Carbon Dioxide 21 BUN 3 L Creatinine 0.58 Glucose 109 H Calcium 8.5 L Consult Discharge Plan - Plan Referrals: Liana Torres, APPARATUS OPERATOR [Primary Care Provider] -
[2017-07-15] MEDS: 0.9 % Sodium Chloride 1,000 ML IVC SCH (18:35)
[2017-07-15] MEDS: *HR* LORazepam 1 MG TABLET PO SCH (21:52)
[2017-07-16] MEDS: Ondansetron 4 MG/2 ML VIAL IVP PRN (04:49)
[2017-07-16 05:13] LABS: BUN/Creatinine Ratio 5 (6-26); Calcium 8.8 mg/dL (8.6-10.8); Carbon Dioxide 23 mEq/L (19-29); Chloride 109 mEq/L (98-109); Glucose 114 mg/dL (70-99); Magnesium 1.6 mg/dL (1.6-2.6); Osmolality,Calculated 291 (280-300); Potassium 3.3 mEq/L (3.5-4.5); Sodium 142 mEq/L (136-145); eGFR For African Americans > 60 (> 60); eGFR For Non-African Americans > 60 (> 60)
[2017-07-16 05:14] LABS: Blood Urea Nitrogen 3 mg/dL (7-20)
[2017-07-16 05:36] LABS: Triiodothyronine (T3) Free 2.37 pg/mL (1.71-3.71)
[2017-07-16] MEDS: MetroNIDAZOLE 500 MG/100 ML 500 MG/100 ML BAG IVPB SCH (06:09)
[2017-07-16] MEDS: *HR* Heparin 5,000 UNIT/ML VIAL SQ SCH ×2 (06:16→16:45)
[2017-07-16] MEDS: hydroCHLOROthiazide 25 MG TABLET PO SCH (08:03)
[2017-07-16] MEDS: Acetaminophen 325 MG TABLET PO PRN ×2 (08:04→18:58)
[2017-07-16] MEDS: Propranolol LA (24 HR) 80 MG CAP.SA.24H PO SCH (08:04)
[2017-07-16] MEDS: Insulin LISPRO 300 UNITS/3 ML VIAL SQ SCH ×4 (08:04→22:10)
--- NOTE | 2017-07-16 10:47 | Internal Med Progress Note ---
Date of Encounter: 07/16/17 Time of Encounter: 10:45 - Assessment and plan (1) Colitis Current Visit: Yes Status: Acute Assessment and plan: Patient presented with abdominal pain and diarrhea. CT abdomen/pelvis shows changes suggestive of enterocolitis. Patient does have remote history of ulcerative colitis, lost to follow-up. Continue IV antibiotics- Ciprofloxacin and Flagyl. Continue supportive care with when necessary antiemetics, pain control with when necessary IV morphine. Advance diet as tolerated. Monitor and replete electrolytes. Stool WBC noted to be positive, C. difficile toxin and GI panel are negative. (2) Hypokalemia Current Visit: Yes Status: Acute Assessment and plan: Secondary to GI losses. Replace with oral and IV potassium chloride. Recheck potassium and magnesium tomorrow. (3) Diabetes mellitus type 2 in obese Current Visit: Yes Status: Chronic Assessment and plan: Accu-Chek blood glucose monitoring with sliding scale insulin as needed. Diabetic soft diet as tolerated. (4) Hypothyroidism Current Visit: Yes Status: Chronic Assessment and plan: Continue levothyroxine. TSH noted to be elevated from 2months ago- now 7; check FT4 and FT3; advised patient about her Synthroid pill from other meds and food by at least 30min. Qualifiers: Hypothyroidism type: unspecified Qualified Code(s): E03.9 - Hypothyroidism , unspecified - Subjective Interval history: Patient presented with abdominal pain and diarrhea. CT abdomen/pelvis shows changes suggestive of enterocolitis. Patient does have remote history of ulcerative colitis, lost to follow-up. Continue IV antibiotics- Ciprofloxacin and Flagyl. Continue supportive care with when necessary antiemetics, pain control with when necessary IV morphine. Advance diet as tolerated. Monitor and replete electrolytes. Stool WBC noted to be positive, C. difficile toxin and GI panel are negative. Patient seen and examined. Labs reviewed. Discussed PCR pending. Potassium is low will supplement and repeat potassium along with magnesium in the morning. - Constitutional Vitals: Temp Pulse Resp BP Pulse Ox 98.1 F 74 18 133/68 95 07/16/17 06:36 07/16/17 06:36 07/16/17 06:36 07/16/17 06:36 07/16/17 06:36 General appearance: Present: cooperative, A&O X 3, no acute distress, answers questions appropriately - Head Head exam: Present: atraumatic, normocephalic - Eye Eye exam: Present: PERRL, conjuntiva pink, sclera anicteric Pupils: Present: PERRL - Neck Neck exam general surgery: Present: supple, trachea midline. Absent: lymphadenopathy - Respiratory Respiratory exam: Present: CTAB. Absent: accessory muscle use, rales, rhonchi, wheezes - Cardiovascular Cardiovascular exam: Present: RRR, +S1, +S2. Absent: diastolic murmur, gallop, rubs, systolic murmur - GI/Abdominal GI/Abdominal exam: Present: normal bowel sounds, soft, tenderness, no peritoneal signs. Absent: distended Additional comments: Mild periumbilical tenderness on right no rebound no mass - Extremities Exam Extremities exam: Present: warm, radial pulses palpable and symmetrical. Absent : calf tenderness, cyanotic, pedal edema - Neurological Exam Neurological exam: Present: CN II-XII intact, oriented X3, no focal deficits. Absent: pronater drift, facial droop, speech deficit - Skin Skin exam: Present: dry, intact Internal Medicine: Result - Labs CBC & Chem 7: 07/17/17 04:40 07/17/17 04:40 Labs: BMP 07/16/17 04:40 Sodium 142 Potassium 3.3 L Chloride 109 Carbon Dioxide 23 BUN 3 L Creatinine 0.62 Glucose 114 H Calcium 8.8 Consult Discharge Plan - Plan Referrals: Liana Torres CNP [Primary Care Provider] - Prescriptions: Ciprofloxacin HCl [Cipro] 500 mg PO BID #7 tablet metroNIDAZOLE [Flagyl] 500 mg PO TID #21 tablet
[2017-07-16] MEDS ORDERED: Magnesium Sulfate 2 GM in D5% in Water 100 ML IVPB ONE (13:24)
[2017-07-16] MEDS: metroNIDAZOLE 500 MG TABLET PO SCH ×2 (14:31→22:09)
--- NOTE | 2017-07-16 15:58 | Discharge Summary ---
Date of Encounter: 07/16/17 Time of Encounter: 15:53 - Discharge Diagnosis (1) Colitis Priority: Primary Status: Acute (2) Hypokalemia Priority: Secondary Status: Acute (3) Diabetes mellitus type 2 in obese Priority: Secondary Status: Chronic (4) Hypothyroidism Priority: Secondary Status: Chronic Qualifiers: Hypothyroidism type: unspecified Qualified Code(s): E03.9 - Hypothyroidism , unspecified - Discharge Medications Prescriptions: Ciprofloxacin HCl [Cipro] 500 mg PO BID #7 tablet metroNIDAZOLE [Flagyl] 500 mg PO TID #21 tablet Home Medications: Estradiol [Estrace] 1 mg PO DAILY 05/02/16 [History] Omeprazole [PriLOSEC] 40 mg PO QAM 05/02/16 [History] metFORMIN [Glucophage] 500 mg PO DAILY 05/02/16 [History] Losartan [Cozaar] 25 mg PO DAILY 05/06/17 [History] hydroCHLOROthiazide [Hydrochlorothiazide] 12.5 mg PO DAILY 05/06/17 [History] Cyclobenzaprine [Flexeril] 5 mg PO HS PRN tab 05/09/17 [Rx] Levothyroxine [Synthroid] 150 mcg PO 0630 tab 05/09/17 [Rx] Propranolol LA (24 HR) [Inderal LA] 80 mg PO DAILY #30 05/09/17 [Rx] traZODone [TraZODone] 50 mg PO HS PRN #30 tab 05/09/17 [Rx] Dicyclomine [Bentyl] 10 mg PO TID PRN 07/13/17 [History] LORazepam [Ativan] 1 mg PO DAILY 07/13/17 [History] Lexapro 10 mg PO DAILY 07/13/17 [History] Acetaminophen [Tylenol] 650 mg PO Q6HR PRN tablet 07/16/17 [Rx] Ciprofloxacin HCl [Cipro] 500 mg PO BID #7 tablet 07/16/17 [Rx] metroNIDAZOLE [Flagyl] 500 mg PO TID #21 tablet 07/16/17 [Rx] Allergies/Adverse Reactions: 3 Allergy/AdvReac Type Severity Reaction Status Date / Time amitriptyline Allergy Hives Verified 06/23/17 14:57 Oxycodone [From Percocet] Allergy Vomiting Verified 07/13/17 16:54 risperidone [From Risperdal] Allergy See Verified 06/23/17 14:57 Comments clarithromycin [From Biaxin] AdvReac Intermediate Vomiting Verified 07/13/17 16: 54 Biaxin AdvReac Severe Vomiting Uncoded 07/13/17 16:54 Date of admission: 07/13/17 20:23 Primary care physician: Liana Torres CNP Consults: 07/15/17 14:36 Consult to Invasive Line Access Team [CONS] Routine Reason for Consult: no iv access Line Type: EPIV Discharging clinician: Lina Guardado Anticipated date of discharge: 07/16/17 - Patient Status Disposition: Home, Self-Care Condition: Good Overall status at discharge: patient is progressing back to baseline - Discharge Instructions Follow Up With: Liana Torres CNP [Primary Care Provider] - - Diet and Activity Activity: resume usual activities as tolerated Diet: advance to your usual diet Hospital course: Patient presented with abdominal pain and diarrhea. CT abdomen/pelvis shows changes suggestive of enterocolitis. Patient does have remote history of ulcerative colitis, lost to follow-up. Continue IV antibiotics- Ciprofloxacin and Flagyl. Continue supportive care with when necessary antiemetics, pain control with when necessary IV morphine. Advance diet as tolerated. Monitor and replete electrolytes. Stool WBC noted to be positive, C. difficile toxin and GI panel are negative. Diarrhea stopped. Abd pain and symptoms resolved. will check potassium and magnessium in am and if stable then she can leave. - Time Spent with Patient Total time spent providing and/or coordinating discharge services: Greater than 30 minutes - Constitutional Vitals: Temp Pulse Resp BP Pulse Ox 98.3 F 74 17 126/72 94 07/16/17 11:32 07/16/17 11:32 07/16/17 11:32 07/16/17 11:32 07/16/17 11:32 General appearance: Present: cooperative, A&O X 3, no acute distress, answers questions appropriately - Head Head exam: Present: atraumatic, normocephalic - Eye Eye exam: Present: PERRL, conjuntiva pink, sclera anicteric Pupils: Present: PERRL - Neck Neck exam general surgery: Present: supple, trachea midline. Absent: lymphadenopathy - Respiratory Respiratory exam: Present: CTAB. Absent: accessory muscle use, rales, rhonchi, wheezes - Cardiovascular Cardiovascular exam: Present: RRR, +S1, +S2. Absent: diastolic murmur, gallop, rubs, systolic murmur - GI/Abdominal GI/Abdominal exam: Present: normal bowel sounds, soft, no peritoneal signs. Absent: distended, tenderness - Extremities Exam Extremities exam: Present: warm, radial pulses palpable and symmetrical. Absent : calf tenderness, cyanotic, pedal edema - Neurological Exam Neurological exam: Present: CN II-XII intact, oriented X3, no focal deficits. Absent: pronater drift, facial droop, speech deficit - Skin Skin exam: Present: dry, intact
[2017-07-16] MEDS: *HR* LORazepam 1 MG TABLET PO SCH (22:09)
[2017-07-17 04:58] LABS: Eosinophils % 5.5 %; Hematocrit 30.6 % (35.3-44.9); Hemoglobin 10.3 g/dL (11.5-15.4); Immature Granulocytes % 1.1 % (0-4); Lymphocytes % 25.5 %; Mean Corpuscular HGB Conc 33.7 g/dL (31.6-35.5); Mean Corpuscular Hemoglobin 29.1 pg (28.0-33.3); Mean Corpuscular Volume 86.4 fL (83.0-100.0); Mean Platelet Volume 8.6 fL (9.4-12.4); Monocytes % 6.8 %; Platelet Count 392 K/mcL (140-400); Red Blood Count 3.54 M/mcL (3.82-4.97); Red Cell Distribution Width 12.8 % (11.5-14.5); Segmented Neutrophils % 60.4 %
[2017-07-17 04:59] LABS: Basophils # 0.1 K/mcL (0.0-0.2); Basophils % 0.7 %; Eosinophils # 0.5 K/mcL (0.0-0.6); Lymphocytes # 2.4 K/mcL (0.6-4.6); Monocytes # 0.6 K/mcL (0.0-1.3); Neutrophils # 5.7 K/mcL (1.6-8.9)
[2017-07-17 05:16] LABS: Alanine Aminotransferase 12 Units/L (0-55); Albumin 3.1 g/dL (3.5-5.0); Albumin/Globulin Ratio 0.9 (1.1-2.2); Alkaline Phosphatase 67 Units/L (38-126); Aspartate Amino Transferase 13 Units/L (5-34); BUN/Creatinine Ratio 8 (6-26); Bilirubin,Total 0.4 mg/dL (0.2-1.2); Carbon Dioxide 25 mEq/L (19-29); Chloride 107 mEq/L (98-109); Globulin 3.3 g/dL (2.4-3.5); Glucose 110 mg/dL (70-99); Magnesium 2.1 mg/dL (1.6-2.6); Osmolality,Calculated 290 (280-300); Potassium 3.6 mEq/L (3.5-4.5); Sodium 141 mEq/L (136-145); Total Protein 6.4 g/dL (6.0-8.3); eGFR For African Americans > 60 (> 60); eGFR For Non-African Americans > 60 (> 60)
[2017-07-17] MEDS: *HR* Heparin 5,000 UNIT/ML VIAL SQ SCH ×2 (05:19→16:39)
[2017-07-17 05:26] LABS: Blood Urea Nitrogen 5 mg/dL (7-20)
[2017-07-17] MEDS: Insulin LISPRO 300 UNITS/3 ML VIAL SQ SCH ×4 (07:38→21:19)
[2017-07-17] MEDS: metroNIDAZOLE 500 MG TABLET PO SCH ×3 (07:48→21:22)
[2017-07-17] MEDS: Propranolol LA (24 HR) 80 MG CAP.SA.24H PO SCH (07:49)
[2017-07-17] MEDS: hydroCHLOROthiazide 25 MG TABLET PO SCH (07:49)
[2017-07-17] MEDS: Ondansetron 4 MG/2 ML VIAL IVP PRN (10:26)
[2017-07-17] MEDS: Acetaminophen 325 MG TABLET PO PRN ×2 (10:26→21:23)
--- NOTE | 2017-07-17 17:45 | Internal Med Progress Note ---
Date of Encounter: 07/17/17 Time of Encounter: 17:45 - Assessment and plan (1) Colitis Current Visit: Yes Status: Acute (2) Hypokalemia Current Visit: Yes Status: Acute (3) Diabetes mellitus type 2 in obese Current Visit: Yes Status: Chronic (4) Hypothyroidism Current Visit: Yes Status: Chronic Qualifiers: Hypothyroidism type: unspecified Qualified Code(s): E03.9 - Hypothyroidism , unspecified - Subjective Interval history: Patient presented with abdominal pain and diarrhea. CT abdomen/pelvis shows changes suggestive of enterocolitis. Patient does have remote history of ulcerative colitis, lost to follow-up. Continue IV antibiotics- Ciprofloxacin and Flagyl. Continue supportive care with when necessary antiemetics, pain control with when necessary IV morphine. Advance diet as tolerated. Monitor and replete electrolytes. Stool WBC noted to be positive, C. difficile toxin and GI panel are negative. Patient seen and examined. Labs reviewed. Discussed PCR pending. She feels her abdominal tenderness is improving. She is eating soft diet. Her labs were not done this morning therefore magnesium and potassium ordered stat. She wants to stay for another day. - Constitutional Vitals: Temp Pulse Resp BP Pulse Ox 97.4 F L 64 18 114/67 95 07/17/17 15:20 07/17/17 15:20 07/17/17 15:20 07/17/17 15:20 07/17/17 15:20 General appearance: Present: cooperative, A&O X 3, no acute distress, answers questions appropriately - Head Head exam: Present: atraumatic, normocephalic - Eye Eye exam: Present: PERRL, conjuntiva pink, sclera anicteric Pupils: Present: PERRL - Neck Neck exam general surgery: Present: supple, trachea midline. Absent: lymphadenopathy - Respiratory Respiratory exam: Present: CTAB. Absent: accessory muscle use, rales, rhonchi, wheezes - Cardiovascular Cardiovascular exam: Present: RRR, +S1, +S2. Absent: diastolic murmur, gallop, rubs, systolic murmur - GI/Abdominal GI/Abdominal exam: Present: normal bowel sounds, soft, no peritoneal signs. Absent: distended, tenderness - Extremities Exam Extremities exam: Present: warm, radial pulses palpable and symmetrical. Absent : calf tenderness, cyanotic, pedal edema - Neurological Exam Neurological exam: Present: CN II-XII intact, oriented X3, no focal deficits. Absent: pronater drift, facial droop, speech deficit - Skin Skin exam: Present: dry, intact Internal Medicine: Result - Labs CBC & Chem 7: 07/17/17 04:40 07/17/17 04:40 Labs: Short CBC 07/17/17 Range/Units 04:40 WBC 9.5 (4.3-11.1) K/mcL Hgb 10.3 L (11.5-15.4) g/dL Hct 30.6 L (35.3-44.9) % Plt Count 392 (140-400) K/mcL Neutrophils # 5.7 (1.6-8.9) K/mcL BMP 07/17/17 04:40 Sodium 141 Potassium 3.6 Chloride 107 Carbon Dioxide 25 BUN 5 L Creatinine 0.63 Glucose 110 H Calcium 9.0 Liver Function 07/17/17 Range/Units 04:40 Total Bilirubin 0.4 (0.2-1.2) mg/dL AST 13 (5-34) Units/L ALT 12 (0-55) Units/L Alkaline Phosphatase 67 (38-126) Units/L Albumin 3.1 L (3.5-5.0) g/dL Consult Discharge Plan - Plan Referrals: Liana Torres, [facility] [Primary Care Provider] - (web request sent on 07/17/17) Prescriptions: Ciprofloxacin HCl [Cipro] 500 mg PO BID #7 tablet metroNIDAZOLE [Flagyl] 500 mg PO TID #21 tablet
[2017-07-17] MEDS: *HR* LORazepam 1 MG TABLET PO SCH (21:23)
[2017-07-18 04:27] LABS: Basophils # 0.1 K/mcL (0.0-0.2); Basophils % 0.7 %; Eosinophils # 0.5 K/mcL (0.0-0.6); Eosinophils % 4.8 %; Hematocrit 33.1 % (35.3-44.9); Immature Granulocytes % 1.2 % (0-4); Lymphocytes # 2.7 K/mcL (0.6-4.6); Lymphocytes % 25.8 %; Mean Corpuscular HGB Conc 33.2 g/dL (31.6-35.5); Mean Corpuscular Hemoglobin 28.8 pg (28.0-33.3); Mean Corpuscular Volume 86.6 fL (83.0-100.0); Mean Platelet Volume 8.7 fL (9.4-12.4); Monocytes # 0.7 K/mcL (0.0-1.3); Monocytes % 6.5 %; Neutrophils # 6.4 K/mcL (1.6-8.9); Platelet Count 435 K/mcL (140-400); Red Blood Count 3.82 M/mcL (3.82-4.97); Red Cell Distribution Width 12.8 % (11.5-14.5)
[2017-07-18 04:36] LABS: Alanine Aminotransferase 15 Units/L (0-55); Albumin 3.2 g/dL (3.5-5.0); Albumin/Globulin Ratio 0.9 (1.1-2.2); Alkaline Phosphatase 69 Units/L (38-126); Aspartate Amino Transferase 17 Units/L (5-34); BUN/Creatinine Ratio 12 (6-26); Bilirubin,Total 0.3 mg/dL (0.2-1.2); Blood Urea Nitrogen 8 mg/dL (7-20); Calcium 9.1 mg/dL (8.6-10.8); Carbon Dioxide 23 mEq/L (19-29); Chloride 106 mEq/L (98-109); Globulin 3.5 g/dL (2.4-3.5); Glucose 113 mg/dL (70-99); Magnesium 2.2 mg/dL (1.6-2.6); Osmolality,Calculated 289 (280-300); Potassium 3.9 mEq/L (3.5-4.5); Sodium 140 mEq/L (136-145); Total Protein 6.7 g/dL (6.0-8.3); eGFR For African Americans > 60 (> 60); eGFR For Non-African Americans > 60 (> 60)
[2017-07-18] MEDS: *HR* Heparin 5,000 UNIT/ML VIAL SQ SCH (06:08)
[2017-07-18] MEDS: hydroCHLOROthiazide 25 MG TABLET PO SCH (08:03)
[2017-07-18] MEDS: metroNIDAZOLE 500 MG TABLET PO SCH (08:03)
[2017-07-18] MEDS: Propranolol LA (24 HR) 80 MG CAP.SA.24H PO SCH (08:03)
[2017-07-18] MEDS: Insulin LISPRO 300 UNITS/3 ML VIAL SQ SCH ×2 (08:04→12:32)
[2017-07-18 11:18] VITALS: BP 129/83
--- NOTE | 2017-07-18 13:15 | Discharge Summary ---
Date of Encounter: 07/18/17 Time of Encounter: 13:13 - Discharge Diagnosis (1) Colitis Priority: Primary Status: Acute (2) Hypokalemia Priority: Secondary Status: Acute (3) Diabetes mellitus type 2 in obese Priority: Secondary Status: Chronic (4) Hypothyroidism Priority: Secondary Status: Chronic Qualifiers: Hypothyroidism type: unspecified Qualified Code(s): E03.9 - Hypothyroidism , unspecified - Discharge Medications Prescriptions: Ciprofloxacin HCl [Cipro] 500 mg PO BID #7 tablet metroNIDAZOLE [Flagyl] 500 mg PO TID #21 tablet Home Medications: Estradiol [Estrace] 1 mg PO DAILY 05/02/16 [History] Omeprazole [PriLOSEC] 40 mg PO QAM 05/02/16 [History] metFORMIN [Glucophage] 500 mg PO DAILY 05/02/16 [History] Losartan [Cozaar] 25 mg PO DAILY 05/06/17 [History] hydroCHLOROthiazide [Hydrochlorothiazide] 12.5 mg PO DAILY 05/06/17 [History] Cyclobenzaprine [Flexeril] 5 mg PO HS PRN tab 05/09/17 [Rx] Levothyroxine [Synthroid] 150 mcg PO 0630 tab 05/09/17 [Rx] Propranolol LA (24 HR) [Inderal LA] 80 mg PO DAILY #30 05/09/17 [Rx] traZODone [TraZODone] 50 mg PO HS PRN #30 tab 05/09/17 [Rx] Dicyclomine [Bentyl] 10 mg PO TID PRN 07/13/17 [History] LORazepam [Ativan] 1 mg PO DAILY 07/13/17 [History] Lexapro 10 mg PO DAILY 07/13/17 [History] Acetaminophen [Tylenol] 650 mg PO Q6HR PRN tablet 07/16/17 [Rx] Ciprofloxacin HCl [Cipro] 500 mg PO BID #7 tablet 07/16/17 [Rx] metroNIDAZOLE [Flagyl] 500 mg PO TID #21 tablet 07/16/17 [Rx] Allergies/Adverse Reactions: 3 Allergy/AdvReac Type Severity Reaction Status Date / Time amitriptyline Allergy Hives Verified 06/23/17 14:57 Oxycodone [From Percocet] Allergy Vomiting Verified 07/13/17 16:54 risperidone [From Risperdal] Allergy See Verified 06/23/17 14:57 Comments clarithromycin [From Biaxin] AdvReac Intermediate Vomiting Verified 07/13/17 16: 54 Biaxin AdvReac Severe Vomiting Uncoded 07/13/17 16:54 Date of admission: 07/13/17 20:23 Primary care physician: Liana Torres CNP Consults: 07/15/17 14:36 Consult to Invasive Line Access Team [CONS] Routine Reason for Consult: no iv access Line Type: EPIV Discharging clinician: Lina Guardado Anticipated date of discharge: 07/18/17 - Patient Status Disposition: Home, Self-Care Condition: Good Overall status at discharge: patient is progressing back to baseline - Discharge Instructions Follow Up With: Liana Torres CNP [Primary Care Provider] - (web request sent on 07/17/17) - Diet and Activity Activity: resume usual activities as tolerated Diet: advance to your usual diet Hospital course: Patient presented with abdominal pain and diarrhea. CT abdomen/pelvis shows changes suggestive of enterocolitis. Patient does have remote history of ulcerative colitis, lost to follow-up. Continue IV antibiotics- Ciprofloxacin and Flagyl. Continue supportive care with when necessary antiemetics, pain control with when necessary IV morphine. Advance diet as tolerated. Monitor and replete electrolytes. Stool WBC noted to be positive, C. difficile toxin and GI panel are negative. Diarrhea stopped. Abd pain and symptoms resolved. will check potassium and magnessium in am and if stable then she can leave. - Time Spent with Patient Total time spent providing and/or coordinating discharge services: Greater than 30 minutes - Constitutional Vitals: Temp Pulse Resp BP Pulse Ox 98.5 F 76 18 129/83 96 07/18/17 11:13 07/18/17 11:13 07/18/17 11:13 07/18/17 11:13 07/18/17 11:13 General appearance: Present: cooperative, A&O X 3, no acute distress, answers questions appropriately - Head Head exam: Present: atraumatic, normocephalic - Eye Eye exam: Present: PERRL, conjuntiva pink, sclera anicteric Pupils: Present: PERRL - Neck Neck exam general surgery: Present: supple, trachea midline. Absent: lymphadenopathy - Respiratory Respiratory exam: Present: CTAB. Absent: accessory muscle use, rales, rhonchi, wheezes - Cardiovascular Cardiovascular exam: Present: RRR, +S1, +S2. Absent: diastolic murmur, gallop, rubs, systolic murmur - GI/Abdominal GI/Abdominal exam: Present: normal bowel sounds, soft, no peritoneal signs. Absent: distended, tenderness - Extremities Exam Extremities exam: Present: warm, radial pulses palpable and symmetrical. Absent : calf tenderness, cyanotic, pedal edema - Neurological Exam Neurological exam: Present: CN II-XII intact, oriented X3, no focal deficits. Absent: pronater drift, facial droop, speech deficit - Skin Skin exam: Present: dry, intact
== END 2017-07-18 14:10 | disposition home or self-care (01) | DRG 392 ==
LOC: 3ANU → SUATTDRO 20:23 → 3NENU 07-14 03:24 → 2ANU 07-15 14:02
PROVIDERS: ADMIT Family Medicine; ATTEND Internal Medicine

== ENCOUNTER 2019-01-22 04:20 | Inpatient (IN) ==
--- NOTE | 2019-01-22 04:31 | Emergency Department Note ---
Disposition Clinical Impression: New onset a-fib, Atrial fibrillation with RVR, Nausea vomiting and diarrhea Disposition: Admitted As Inpatient Condition: Good Referrals: Liana Torres CNP [Primary Care Provider] - Forms: ED Satisfaction Letter Time of Disposition: 06:07 Chest Pain HPI - General Chief Complaint: ED Arrhythmia/Palpitations Stated Complaint: Afib Time Seen by Provider: 01/22/19 04:21 Source: patient, EMS Mode of arrival: EMS Limitations: no limitations Vital Signs Reviewed: Yes Nursing Notes Reviewed: Yes - History of Present Illness HPI Narrative: Patient is a 48-year-old female with past medical history of hypertension, hyperlipidemia, GERD, thyroid disease. She presents today due to concern for fast heart rate, nausea, vomiting, diarrhea. Patient states that she has been told in the past that she has tachycardia. She has never been diagnosed with A. fib. She says that tonight, she felt nauseated, vomited 3 times, also had one or 2 episodes of loose stools. She states that after the third time she throughout, she began having fluttering in her chest. She states that it is been constant since then. She has a mild squeezing sensation in the center of her chest. Denies any radiation anywhere else. Denies any overt shortness of breath. She does state that this feels like previous episodes where she felt like her heart was racing. However, she states that she wore a Holter monitor and had a full workup and was told that it was tachycardia. She was never officially diagnosed with A. fib. She is not on any current blood thinners. She does take a prescription medication for rate control of her tachycardia. Denies any other fevers, dysuria, hematuria, abdominal pain. Denies any previous cardiac history such as DE or stent placement. Is not currently on any blood thinners. - Related Data Home Medications Medication Instructions Recorded Confirmed Escitalopram [Lexapro] 20 mg PO DAILY 02/17/18 02/17/18 Levothyroxine Sodium [Levoxyl] 150 mcg PO DAILY 02/17/18 02/17/18 Losartan [Cozaar] 25 mg PO DAILY 02/17/18 02/17/18 Pravastatin Sodium [Pravachol] 10 mg PO HS 02/17/18 02/17/18 Propranolol LA (24 HR) [Inderal LA] 80 mg PO DAILY 02/17/18 02/17/18 RX: Estradiol [Estrace] 1 mg PO DAILY 02/17/18 02/17/18 RX: LORazepam [Ativan] 1 mg PO BID PRN 02/17/18 02/17/18 RX: Omeprazole [PriLOSEC] 40 mg PO DAILY 02/17/18 02/17/18 RX: hydroCHLOROthiazide 12.5 mg PO DAILY 02/17/18 02/17/18 [Hydrochlorothiazide] Previous Rx's Medication Instructions Recorded RX: Doxycycline 100 mg PO BID 10 Days #20 capsule 06/22/18 Ondansetron ODT [Zofran ODT] 4 mg SL Q6HR PRN #7 tab.rapdis 07/18/18 Sucralfate [Carafate] 1 gm PO QIDAC #20 tablet 07/18/18 Ondansetron ODT [Zofran ODT] 4 mg SL Q6HR PRN #14 tab.rapdis 09/13/18 Allergies Allergy/AdvReac Type Severity Reaction Status Date / Time amitriptyline Allergy Hives Verified 02/17/18 07:33 clarithromycin [From Biaxin] AdvReac Intermediate Vomiting Verified 02/17/18 07:33 oxycodone [From Percocet] AdvReac Vomiting Verified 02/17/18 07:33 risperidone [From Risperdal] AdvReac Hypertensio Verified 02/17/18 07:33 n Biaxin AdvReac Severe Vomiting Uncoded 02/17/18 07:33 All systems ED: reviewed and negative except as stated. Constitutional: Denies: fever Cardiovascular: Reports: chest pain, palpitations Respiratory: Denies: dyspnea Gastrointestinal: Reports: nausea, vomiting, diarrhea. Denies: abdominal pain Genitourinary: Denies: urgency, dysuria Integumentary: Denies: rash Neurological: Denies: weakness, numbness, paresthesias Chest Pain PMH - Past Medical History Medical history: Reports: fibromyalgia, GERD, hyperlipidemia, hypertension, thyroid disease, other Surgical history: Reports: appendectomy, , cholecystectomy, hysterectomy Psychiatric history: Reports: anxiety, depression, previous psychiatric hospitalization - Social History Smoking Status: Never smoker Alcohol use: Reports: none Drug use: Reports: none Physical Exam - General Limitations: no limitations General appearance: alert, in no apparent distress - Head Head exam: atraumatic, normocephalic, normal inspection - Eye Eye exam: Present: normal appearance, PERRL, EOMI - ENT ENT exam: normal exam, normal oropharynx, mucous membranes moist - Neck Neck exam: Present: normal inspection, full ROM, trachea midline - Chest Chest inspection: Present: normal inspection, symmetric chest wall rise - Respiratory Respiratory exam: Present: normal lung sounds bilaterally - Cardiovascular Cardiovascular exam: Present: tachycardia, irregular rhythm, normal heart sounds - Abdominal Exam Abdominal exam: Present: soft, Non-Tender. Absent: tenderness, distention, guarding, rebound, rigidity - Extremities Exam Extremities exam: Present: normal inspection, full ROM. Absent: tenderness, pedal edema - Neurological Exam Neurological exam: Present: alert, oriented X3 - Psychiatric Psychiatric exam: Present: normal affect, normal mood - Skin Skin exam: Present: warm, dry, intact, normal color Course Course Narrative: Patient presented in A. fib RVR with a rate of 150 and systolic blood pressure 1 50. Otherwise, the rest of vitals within normal limits. Physical exam shows patient no acute distress. Abdomen soft and nontender, heart regular rhythm and tachycardic. Lungs clear to auscultation. She has mild chest discomfort that she attributes point towards palpitations rather than over pain. We will give the patient aspirin. We will give the patient a Cardizem bolus and then placed on a Cardizem drip. We will also start the patient on Xarelto. Will obtain basic labs, EKG, chest x-ray, troponin level. Will admit for new onset A. fib RVR. 05:56 EKG showed A. fib RVR with no acute ST changes. Patient required a bolus of Cardizem 20 mg, 5 mg of Lopressor. Heart rate is now in the 90s. Cardizem drip is being started as well. Troponin negative. Chest x-ray negative for any acute cardio pulmonary process. No major lab abnormality. TSH and free T3 and T4 are currently pending. Blood pressure remained stable at this time. Aspirin given. Xarelto also given. We will admit for new onset A. fib RVR. Urinalysis pending. Vital Signs Temperature 98.8 F 01/22/19 04:29 Pulse Rate 149 01/22/19 04:29 Respiratory Rate 20 01/22/19 04:29 Blood Pressure 155/107 01/22/19 04:29 O2 Sat by Pulse Oximetry 97 01/22/19 04:29 Temperature 98.8 F 01/22/19 04:29 Pulse Rate 105 01/22/19 05:34 Respiratory Rate 16 01/22/19 05:34 Blood Pressure 147/89 01/22/19 05:34 O2 Sat by Pulse Oximetry 97 01/22/19 05:34 Oxygen Delivery Oxygen Delivery Room Air Chest Pain - MDM Narrative Medical decision making narrative: Patient presented in A. fib RVR with a rate of 150 and systolic blood pressure 150. Otherwise, the rest of vitals within normal limits. Physical exam shows patient no acute distress. Abdomen soft and nontender, heart regular rhythm and tachycardic. Lungs clear to auscultation. She has mild chest discomfort that she attributes point towards palpitations rather than over pain. We will give the patient aspirin. We will give the patient a Cardizem bolus and then placed on a Cardizem drip. We will also start the patient on Xarelto. Will obtain basic labs, EKG, chest x-ray, troponin level. Will admit for new onset A. fib RVR. 05:56 EKG showed A. fib RVR with no acute ST changes. Patient required a bolus of Cardizem 20 mg, 5 mg of Lopressor. Heart rate is now in the 90s. Cardizem drip is being started as well. Troponin negative. Chest x-ray negative for any acute cardio pulmonary process. No major lab abnormality. TSH and free T3 and T4 are currently pending. Blood pressure remained stable at this time. Aspirin given. Xarelto also given. We will admit for new onset A. fib RVR. Urinalysis pending. - Medical Records Medical records reviewed: Yes I reviewed the patient's medical records. - Lab Data Lab results reviewed: Yes I reviewed the patient's lab results. Result diagrams: 01/22/19 04:50 01/22/19 04:50 Lab Results 01/22/19 01/22/19 01/22/19 Range/Units 04:50 04:50 04:50 WBC 21.8 H (4.3-11.1) K/mcL RBC 4.38 (3.82-4.97) M/mcL Hgb 12.7 (11.5-15.4) g/dL Hct 37.3 (35.3-44.9) % MCV 85.2 (83.0-100.0) fL MCH 29.0 (28.0-33.3) pg MCHC 34.0 (31.6-35.5) g/dL RDW 13.0 (11.5-14.5) % Plt Count 611 H (140-400) K/mcL MPV 9.3 L (9.4-12.4) fL Immature Gran % 0.8 (0-4) % Seg Neutrophils % 85.4 % Lymphocytes % 7.5 % Monocytes % 6.0 % Eosinophils % 0.0 % Basophils % 0.3 % Neutrophils # 18.6 H (1.6-8.9) K/mcL Lymphocytes # 1.6 (0.6-4.6) K/mcL Monocytes # 1.3 (0.0-1.3) K/mcL Eosinophils # 0.0 (0.0-0.6) K/mcL Basophils # 0.1 (0.0-0.2) K/mcL PT 10.1 (9.4-12.1) Seconds INR 0.9 APTT 27.3 (26.0-36.0) Seconds Sodium 138 (136-145) mEq/L Potassium 3.7 (3.5-5.1) mEq/L Chloride 107 (98-107) mEq/L Carbon Dioxide 19 L (23-29) mEq/L BUN 13 (6-20) mg/dL Creatinine 0.46 L (0.60-1.20) mg/dL Est GFR ( Amer) > 60 (> 60) Est GFR (Non-Af Amer) > 60 (> 60) BUN/Creatinine Ratio 28 H (6-26) Glucose 163 H (70-105) mg/dL Calculated Osmolality 290 (280-300) Calcium 9.6 (8.6-10.3) mg/dL Troponin I 0.03 (< 0.04) ng/mL TSH 4.806 (0.340-5.600) mcIU/mL Free T4 0.93 (0.70-2.00) ng/dl Free T3 2.78 (2.50-3.90) pg/mL - Radiology Data Radiology results reviewed: Yes I reviewed the patient's radiology results. Chest X-Ray 01/22/19 04:32 IMPRESSION: No acute cardiopulmonary disease or significant interval change from prior study 02/28/2018 D/ / Dale Hill / Dale Hill Interpreting Provider: Dale Hill - EKG Data EKG attestation: Yes I reviewed and interpreted this EKG. EKG results narrative: 01/22/2019 and 04:29. A. fib RVR. Rate 158. QRS 107. QTC 445. Normal axis. No acute ST elevation or depression. No STEMI. Critical Care Time Critical Care Time: Yes Total Critical Care Time: 45 Attestation: New Onset atrial fibrillation with RVR which required multiple rate control medicines S.B.A.R. - S.B.A.RGabbi Situation: Demographics, MOA Background: Presenting Complaint, Relevant PMH, Meds, & Allergies Assessment: Vital Signs, Course and respsone to treatment, Exam Concerns, Patient/Family Expectation, Pertinant Lab Results, Outstanding Labs (Urinalysis pending. ) Recommendation: Barrier(s) to disposition, Recommendation based on pending studies, treatments, or consults S.B.A.RGabbi Report Given to: Dr. Aisha AntonioBVladislav Repor Time: 06:07 Attestation Statement - Attestation Attestation: Dr. Alexandre note: Patient seen in conjunction with resident Dr. Dale Valerio; please see his charting for complete documentation. I spent [id number] time with the patient and agree with the patient's treatment and disposition. Blood work noted. Rate improved prior to admission. Blood pressure stable. Patient is notably anxious. Was given multiple doses of rate control medicine in the ER and then a Cardizem drip was started. Admitted and stabilized improved condition. Complains of palpitations on and off since tonight but vague intermittent diaphoresis for day 2. History of diaphoresis intermittent for many months for which she is already seeing her doctor.
[2019-01-22] MEDS ORDERED: *HR* Metoprolol 5 MG/5 ML VIAL IVP ONE (05:05)
[2019-01-22 05:27] LABS: Basophils # 0.1 K/mcL (0.0-0.2); Basophils % 0.3 %; Hematocrit 37.3 % (35.3-44.9); Hemoglobin 12.7 g/dL (11.5-15.4); Immature Granulocytes % 0.8 % (0-4); Lymphocytes # 1.6 K/mcL (0.6-4.6); Lymphocytes % 7.5 %; Mean Corpuscular Volume 85.2 fL (83.0-100.0); Mean Platelet Volume 9.3 fL (9.4-12.4); Monocytes # 1.3 K/mcL (0.0-1.3); Neutrophils # 18.6 K/mcL (1.6-8.9); Platelet Count 611 K/mcL (140-400); Red Blood Count 4.38 M/mcL (3.82-4.97); Segmented Neutrophils % 85.4 %
[2019-01-22 05:31] LABS: INR 0.9; Prothrombin Time 10.1 Seconds (9.4-12.1)
[2019-01-22 05:34] LABS: Activated Partial Thrombo Time 27.3 Seconds (26.0-36.0)
[2019-01-22 05:50] LABS: BUN/Creatinine Ratio 28 (6-26); Blood Urea Nitrogen 13 mg/dL (6-20); Calcium 9.6 mg/dL (8.6-10.3); Carbon Dioxide 19 mEq/L (23-29); Chloride 107 mEq/L (98-107); Glucose 163 mg/dL (70-105); Osmolality,Calculated 290 (280-300); Potassium 3.7 mEq/L (3.5-5.1); Sodium 138 mEq/L (136-145); Troponin I 0.03 ng/mL (< 0.04); eGFR For Non-African Americans > 60 (> 60)
[2019-01-22] MEDS ORDERED: *HR* Rivaroxaban 10 MG TABLET PO ONE (05:55)
[2019-01-22 06:00] LABS: Thyroid Stimulating Hormone 4.806 mcIU/mL (0.340-5.600)
[2019-01-22] MEDS ORDERED: Ondansetron 4 MG/2 ML VIAL IVP ONE (06:00)
[2019-01-22] MEDS ORDERED: Ondansetron 4 MG/2 ML VIAL ONE (06:00)
[2019-01-22 06:01] LABS: Triiodothyronine (T3) Free 2.78 pg/mL (2.50-3.90)
[2019-01-22] MEDS: 0.9 % Sodium Chloride 1,000 ML IVC SCH ×2 (06:35→15:48)
[2019-01-22] MEDS ORDERED: GI Cocktail 40 ML EACH PO ONE (06:36)
[2019-01-22] MEDS ORDERED: Ondansetron 4 MG/2 ML VIAL IVP PRN (09:22)
--- NOTE | 2019-01-22 09:23 | Internal Med History&Physical ---
Date of Encounter: 01/22/19 Time of Encounter: 09:21 Internal Medicine - H&P: HPI Chief complaint: palpitations Admitted From: Home Plans for Post Hospital Care: Home History of present illness: Ms. Anne is a 48 year old female with pas medical history of DM-II, hypothyroidism, HTN, OCD, HLD, anxiety and depression. Pt presents with complaint of palpitations. She states she has had issues with palpitations for which she was on inderal in the past but denies history of afib that she is aware of. She states about a year ago, she felt dizzy during a treadmill stress test and after the stress test, she was informed b PCP that results where abnormal. She was referred to cardiology at the time. She states last night she was feeling dizzy again and after a few minutes she felt her heart racing and she threw up. She states she is on Inderal, losratan, and HCTZ for her BP. She had not taken her med this am. She states she had some slight chest discomfort , pain scale 3/10. She also reports feeling SOB. She states she is a social smoker. Father had history of CHF and at 57 years old. Mother had HTN. In ED WBC 21.8, hgb 12.7, hct 37.3, plt 611. Na 138, K 3.7, BUN 13, Cr 0.46. TSH 4.806. Free T4. Chest x ray XR/XR chest 2V IMPRESSION: No acute cardiopulmonary disease or significant interval change from prior study 02/28/2018 CODe STATUS: FULL Past Med Surg Social Fam HX - Past Medical History Medical history: arthritis, diabetes, fibromyalgia, GERD, hyperlipidemia, hypertension, thyroid disease, other Additional medical history: diviticulosis Psychiatric history: anxiety, depression, PTSD, previous psychiatric hospitalization - Past Surgical History Surgical History: appendectomy, , cholecystectomy, hysterectomy Additional surgical history: achilles repair bilateral. 4/2 injection into right knee for arthritis - first injection - Social History Smoking Status: Never smoker Smokeless Tobacco Status: No Alcohol use: none Drug use: none - Family History Father Family Member Ethnicity: Non- Living Status: Hx Family Cardiac Disorders: Yes Hx Family Respiratory Disorders: Yes Hx Family Cancer: No Hx Family GI Disorders: Yes Hx Family Endocrine Disorder: No Hx Family Neuromuscular Disorders: Yes (Uncle) Hx Family Neurologic Disorders: No Hx Family HEENT Disorders: No Hx Family Autoimmune Disorders: No Mother Family Member Ethnicity: Non- Living Status: Still Living Hx Family Cardiac Disorders: Yes Hx Family Respiratory Disorders: Yes Hx Family Cancer: No Hx Family GI Disorders: Yes Hx Family Endocrine Disorder: No Hx Family Neuromuscular Disorders: No Hx Family Neurologic Disorders: Yes (Brother MS) Hx Family HEENT Disorders: No Hx Family Autoimmune Disorders: No Internal Medicine - H&P: Meds Escitalopram [Lexapro] 20 mg PO DAILY 02/17/18 [History] Estradiol [Estrace] 1 mg PO DAILY 02/17/18 [History] LORazepam [Ativan] 1 mg PO BID PRN 02/17/18 [History] Levothyroxine Sodium [Levoxyl] 150 mcg PO DAILY 02/17/18 [History] Losartan [Cozaar] 25 mg PO DAILY 02/17/18 [History] Omeprazole [PriLOSEC] 40 mg PO DAILY 02/17/18 [History] Pravastatin Sodium [Pravachol] 10 mg PO HS 02/17/18 [History] Propranolol LA (24 HR) [Inderal LA] 80 mg PO DAILY 02/17/18 [History] hydroCHLOROthiazide [Hydrochlorothiazide] 12.5 mg PO DAILY 02/17/18 [History] Doxycycline 100 mg PO BID 10 Days #20 capsule 06/22/18 [Rx] Ondansetron ODT [Zofran ODT] 4 mg SL Q6HR PRN #7 tab.rapdis 07/18/18 [Rx] Sucralfate [Carafate] 1 gm PO QIDAC #20 tablet 07/18/18 [Rx] Ondansetron ODT [Zofran ODT] 4 mg SL Q6HR PRN #14 tab.rapdis 09/13/18 [Rx] Allergy/AdvReac Type Severity Reaction Status Date / Time amitriptyline Allergy Hives Verified 02/17/18 07:33 clarithromycin [From Biaxin] AdvReac Intermediate Vomiting Verified 02/17/18 07:33 oxycodone [From Percocet] AdvReac Vomiting Verified 02/17/18 07:33 risperidone [From Risperdal] AdvReac Hypertensio Verified 02/17/18 07:33 n Biaxin AdvReac Severe Vomiting Uncoded 02/17/18 07:33 All Systems PM: A 10-system review of systems was performed and is negative for pertinent fin dings except as documented above in the HPI. - Constitutional Vitals: Temp Pulse Resp BP Pulse Ox 98.9 F 110 16 133/82 95 01/22/19 08:39 01/22/19 08:39 01/22/19 08:39 01/22/19 08:39 01/22/19 09:02 General appearance: Present: obese Exam: . - Head Head exam: Present: atraumatic, normocephalic - Eye Eye exam: Present: PERRL, conjuntiva pink, sclera anicteric Pupils: Present: PERRL - Neck Neck exam general surgery: Present: supple, trachea midline. Absent: lymphadenopathy - Respiratory Respiratory exam: Present: CTAB. Absent: accessory muscle use, rales, rhonchi, wheezes - Cardiovascular Cardiovascular exam: Present: irregular rhythm. Absent: diastolic murmur, gallop, rubs, systolic murmur - GI/Abdominal GI/Abdominal exam: Present: normal bowel sounds, soft, no peritoneal signs. Absent: distended, tenderness - Extremities Exam Extremities exam: Present: warm, radial pulses palpable and symmetrical. Absent: calf tenderness, cyanotic, pedal edema - Neurological Exam Neurological exam: Present: CN II-XII intact, oriented X3, no focal deficits. Absent: pronater drift, facial droop, speech deficit - Skin Skin exam: Present: dry, intact Internal Med - H&P Results - Labs CBC & Chem 7: 01/22/19 04:50 01/22/19 04:50 Labs: Short CBC 01/22/19 Range/Units 04:50 WBC 21.8 H (4.3-11.1) K/mcL Hgb 12.7 (11.5-15.4) g/dL Hct 37.3 (35.3-44.9) % Plt Count 611 H (140-400) K/mcL Neutrophils # 18.6 H (1.6-8.9) K/mcL BMP 01/22/19 04:50 Sodium 138 Potassium 3.7 Chloride 107 Carbon Dioxide 19 L BUN 13 Creatinine 0.46 L Glucose 163 H Calcium 9.6 Cardiac Enzymes 01/22/19 Range/Units 04:50 Troponin I 0.03 (< 0.04) ng/mL - Impressions ITS Impressions Chest X-Ray 01/22/19 04:32 IMPRESSION: No acute cardiopulmonary disease or significant interval change from prior study 02/28/2018 D/ / Dale Hill / Dale Hill Interpreting Provider: Dale Hill - Assessment and Plan (1) Atrial fibrillation with RVR Current Visit: Yes Status: Acute Assessment and plan: [id number] Vasc score 3. Started on Cardizem gtt in ED and currently down to 5mg/kg. Will consult cardiology. Will check echo. Will monitor on telemetry. Will initiate heparin gtt. (2) Essential hypertension Current Visit: No Status: Chronic Assessment and plan: Losartan, HCTZ, Inderal (3) Diabetes mellitus type 2 in obese Current Visit: No Status: Chronic Assessment and plan: On Metformin. Will place on SSI and resume home metformin. (4) Hypothyroidism Current Visit: No Status: Chronic Assessment and plan: Synthroid. Qualifiers: Hypothyroidism type: unspecified Qualified Code(s): E03.9 - Hypothyroidism, unspecified (5) Anxiety and depression Current Visit: No Status: Chronic Assessment and plan: Resume home meds (6) History of OCD (obsessive compulsive disorder) Current Visit: No Status: Chronic Assessment and plan: Resume home meds - Time Spent With Patient Total time spent is greater than 50% in coordination of care (as documented) at patient's floor/unit and/or counseling patient: 25 - 35 minutes
[2019-01-22] MEDS ORDERED: Naloxone 0.4 MG/ML INJ IVP PRN (10:45)
[2019-01-22] MEDS ORDERED: *HR* Heparin 5,000 UNIT/ML VIAL IVP PRN ×4 (10:45→11:03)
[2019-01-22] MEDS ORDERED: MOM Conc 10 ML UD.LIQ PO PRN (10:45)
[2019-01-22] MEDS ORDERED: *HR* Heparin 5,000 UNIT/ML VIAL IVP ONE ×2 (10:45→11:03)
[2019-01-22] MEDS ORDERED: *HR* Dextrose 50 % in Water (Syg) 50 ML SYRINGE IVP PRN (10:54)
[2019-01-22] MEDS ORDERED: D5% in Water 1,000 ML IVC PRN (10:54)
[2019-01-22] MEDS ORDERED: Dextrose Gel 15 GM/37.5 ML TUBE PO PRN ×2 (10:54)
[2019-01-22 11:06] LABS: Albumin 4.1 g/dL (3.5-5.7); Albumin/Globulin Ratio 1.2 (1.1-2.2); Bilirubin,Direct 0.1 mg/dL (0.0-0.2); Bilirubin,Indirect 0.4 mg/dL (0.0-1.2); Bilirubin,Total 0.5 mg/dL (0.3-1.0); Globulin 3.3 g/dL (2.4-3.5); Total Protein 7.4 g/dL (6.4-8.9)
[2019-01-22] MEDS ORDERED: Heparin 25,000 UNIT/250 ML D5W 25,000 UNIT/250 ML IV.SOLN IVC SCH (11:15)
[2019-01-22 11:34] LABS: Hematocrit 37.8 % (35.3-44.9); Hemoglobin 12.7 g/dL (11.5-15.4); Mean Corpuscular HGB Conc 33.6 g/dL (31.6-35.5); Mean Corpuscular Hemoglobin 29.5 pg (28.0-33.3); Mean Corpuscular Volume 87.9 fL (83.0-100.0); Mean Platelet Volume 8.9 fL (9.4-12.4); Platelet Count 628 K/mcL (140-400); Red Cell Distribution Width 13.2 % (11.5-14.5)
[2019-01-22 11:47] LABS: Magnesium 2.1 mg/dL (1.6-2.6); Phosphorous 2.6 mg/dL (2.7-4.5)
[2019-01-22 11:55] LABS: INR 1.7; Prothrombin Time 18.6 Seconds (9.4-12.1)
[2019-01-22 11:59] LABS: Heparin anti-factor XA UFH > 2.00 IU/mL (0.30-0.70)
[2019-01-22] MEDS: Insulin LISPRO 300 UNITS/3 ML VIAL SQ SCH ×2 (11:59→16:09)
--- NOTE | 2019-01-22 12:07 | Cardiology Consult Note ---
Addendum entered and electronically signed by Filiberto Mera MD 01/22/19 13:15: I examined this patient and my medical decision-making was reviewed with the ELECTRONIC WARFARE SPECIALIST. I agree with the documented findings, disposition and treatment plan as described except to the extent set forth below. A/P: New onset AF with CV score 3 Nausea, vomiting diarrhea on GI illness Recent TTE normal EF, no significant regurgitation Continue cardizem drip and titrate HR <100, transition to oral when able. Eliquis is $0 cost and A/R/B of bleeding, lack of reversal agents. Thank you for the consult, Filiberto Mera MD [facility] Original Note: Date of Encounter: 01/22/19 Time of Encounter: 12:00 Assessment and Plan (1) New onset a-fib Current Visit: Yes Status: Acute Per cardiology: -New onset a.fib in the setting of GI illness. RVR on admission. Reported palpitations/fluttering. -On cardizem drip. -TTE 02/2018 with LVEF 65%, mild diastolic dysfunction, mild MR, no wall motion abnormalities noted. -12/2016 stress test nuclear images were negative for ischemia or infarct. ECG with borderline ischemia. -Chads 2 vasc score 3 (gender, HTN, DM). Started on heparin drip per primary service. -Continue cardizem drip, titrate for HR less than 100 as BP will tolerate. -Will watson check NOAC. -Recommend outpatient sleep study and stress test. (2) Nausea vomiting and diarrhea Current Visit: Yes Status: Acute Per cardiology: -Reports nausea, vomiting, diarrhea. -WBC elevated. -management per primary service. Discussion w patient/family: The assessment and plan as outlined above was discussed with the patient and/or family members who expressed understanding and agreement. All questions were answered. Thank you for involving us in the care of your patient. Please call with any questions. Discussed and reviewed with . History of Present Illness Consult date: 01/22/19 Requesting physician: Alyssia Vogel Consult reason: new a.fib Chief complaint: palpitations, nausea, vomiting, diarrhea History of present illness: Ms. Anne is a 48 year old female with a relevant past medical history of HTN, DM, vasovagal syncope, anxiety, depression, OCD, hypothyroidism, GERD, diverticulosis, who presented to [facility] with complaints of palpitations/flutt ering. Patient reports these palpitations are different from her chronic palpitations. Patient states that she started with nausea, vomiting, and diarrhea yesterday. Denies chest pain. Denies shortness of breath. Reports she snores, however denies previous sleep study. Past Med Surg Social Fam HX - Past Medical History Attestation: Yes The following information was validated with the patient. Source: patient, old records reviewed Medical history: arthritis, diabetes, fibromyalgia, GERD, hyperlipidemia, hypertension, thyroid disease, other Additional medical history: diviticulosis Psychiatric history: anxiety, depression, PTSD, previous psychiatric hospitalization - Past Surgical History Surgical History: appendectomy, , cholecystectomy, hysterectomy Additional surgical history: achilles repair bilateral. 4/2 injection into right knee for arthritis - first injection - Social History Smoking Status: Never smoker Smokeless Tobacco Status: No Alcohol use: none Drug use: none - Family History Father Family Member Ethnicity: Non- Living Status: Hx Family Cardiac Disorders: Yes Hx Family Respiratory Disorders: Yes Hx Family Cancer: No Hx Family GI Disorders: Yes Hx Family Endocrine Disorder: No Hx Family Neuromuscular Disorders: Yes (Uncle) Hx Family Neurologic Disorders: No Hx Family HEENT Disorders: No Hx Family Autoimmune Disorders: No Mother Family Member Ethnicity: Non- Living Status: Still Living Hx Family Cardiac Disorders: Yes Hx Family Respiratory Disorders: Yes Hx Family Cancer: No Hx Family GI Disorders: Yes Hx Family Endocrine Disorder: No Hx Family Neuromuscular Disorders: No Hx Family Neurologic Disorders: Yes (Brother MS) Hx Family HEENT Disorders: No Hx Family Autoimmune Disorders: No Medications and Allergies Escitalopram [Lexapro] 20 mg PO DAILY 02/17/18 [History] Estradiol [Estrace] 1 mg PO DAILY 02/17/18 [History] LORazepam [Ativan] 1 mg PO BID PRN 02/17/18 [History] Levothyroxine Sodium [Levoxyl] 150 mcg PO DAILY 02/17/18 [History] Losartan [Cozaar] 25 mg PO DAILY 02/17/18 [History] Omeprazole [PriLOSEC] 40 mg PO BID 02/17/18 [History] Propranolol LA (24 HR) [Inderal LA] 80 mg PO DAILY 02/17/18 [History] hydroCHLOROthiazide [Hydrochlorothiazide] 12.5 mg PO DAILY 02/17/18 [History] Ondansetron ODT [Zofran ODT] 4 mg SL Q6HR PRN #14 tab.rapdis 09/13/18 [Rx] Ezetimibe [Zetia] 10 mg PO DAILY 01/22/19 [History] Gabapentin [Neurontin] 300 mg PO HS 01/22/19 [History] Metformin HCl [Metformin ER Gastric] 500 mg PO BID 01/22/19 [History] Sucralfate [Carafate] 1 gm PO QIDAC PRN 01/22/19 [History] Allergy/AdvReac Type Severity Reaction Status Date / Time amitriptyline Allergy Hives Verified 02/17/18 07:33 clarithromycin [From Biaxin] AdvReac Intermediate Vomiting Verified 02/17/18 07:33 oxycodone [From Percocet] AdvReac Vomiting Verified 02/17/18 07:33 risperidone [From Risperdal] AdvReac Hypertensio Verified 02/17/18 07:33 n Biaxin AdvReac Severe Vomiting Uncoded 02/17/18 07:33 All Systems Review: The remainder of the systems were reviewed and are negative - Cardiovascular Cardiovascular: as per HPI, palpitations - Gastrointestinal Gastrointestinal: diarrhea, nausea Physical Examination Vital Signs, Last 4 Hours Temp Pulse Resp BP Pulse Ox 01/22/19 11:32 97.3 F L 99 16 124/68 95 01/22/19 09:02 95 01/22/19 08:39 98.9 F 110 16 133/82 95 General: Conversant, No Apparent Distress HEENT: Atraumatic, Normocephaly, Mucus Membranes Moist Neck: No JVD, Normal carotid pulses Cardiac: Normal S1 and S2, No Murmur, Other (Irregularly irregular) Lungs: Normal Breath Sounds, No Wheeze, Rales, Rhonchi Neuro: Alert and responsive, No focal deficits noted Abdomen: Soft, Non-Tender Skin: No rashes noted on visualized skin Musculoskeletal: No Chest Wall Tenderness Extremities: No Clubbing, No Cyanosis, No Edema, Normal Pulses Results 01/22/19 11:03 01/22/19 04:50 Lab Results Impressions Chest X-Ray 01/22/19 04:32 IMPRESSION: No acute cardiopulmonary disease or significant interval change from prior study 02/28/2018 D/ / Dale Hill / Dale Hill Interpreting Provider: Dale Hill Active Medications Acetaminophen (Tylenol) 650 mg PO Q6HR PRN PRN Reason: Mild Pain/Fever Stop: 07/24/19 10:46 Aspirin (Aspirin) 81 mg PO DAILY [facility] Stop: 07/25/19 09:01 Dextrose/Water (Dextrose 50% (Syg)) 25 ml IVP AD PRN PRN Reason: Hypoglycemia Stop: 07/24/19 10:55 Glucagon (Glucagen) 1 mg IM ONCE PRN PRN Reason: Hypoglycemia Stop: 07/24/19 10:55 Glucose (Gluctose) 15 gm PO ONCE PRN PRN Reason: Hypoglycemia Stop: 07/24/19 10:55 Glucose (Gluctose) 30 gm PO ONCE PRN PRN Reason: Hypoglycemia Stop: 07/24/19 10:55 Heparin Sodium (Porcine) (Heparin) 6,900 unit 70 unit/kg (6900 unit) IVP Q6HR PRN PRN Reason: SEE COMMENTS Stop: 07/24/19 11:04 Heparin Sodium (Porcine) (Heparin) 3,500 unit 35 unit/kg (3500 unit) IVP Q6H PRN PRN Reason: SEE COMMENTS Stop: 07/24/19 11:04 Diltiazem HCl 50 mg/ Sodium (Chloride) 50 mls @ 5 mls/hr IVC .Q10H JERSON; Protocol Stop: 07/24/19 04:46 Last Admin: 01/22/19 06:13 Dose: 5 mg/hr, 5 mls/hr Sodium Chloride (0.9 % Sodium Chloride) 1,000 mls @ 125 mls/hr IVC .Q8H JERSON Stop: 07/24/19 06:16 Last Admin: 01/22/19 06:35 Dose: 125 mls/hr Dextrose (Dextrose 5%) 1,000 mls @ 100 mls/hr IVC .Q10H PRN PRN Reason: HYPOGLYCEMIA Stop: 07/24/19 10:55 Heparin Sodium/Dextrose (Heparin 25,000 Unit/250 Ml D5w) 25,000 unit in 250 mls @ 13.863 mls/hr IVC .Q18H3M JERSON; Protocol Stop: 10/04/19 11:16 Insulin Human Lispro (Humalog) 0 units SQ TIDAC [facility]ERSON; Protocol Stop: 07/24/19 11:31 Last Admin: 01/22/19 11:59 Dose: Not Given Magnesium Hydroxide (Milk Of Magnesia Conc) 10 ml PO DAILY PRN PRN Reason: Constipation Stop: 07/24/19 10:46 Naloxone HCl (Narcan) 0.4 mg IVP Q2M PRN PRN Reason: SEE COMMENTS Stop: 07/24/19 10:46 Ondansetron HCl (Zofran) 4 mg IVP Q6HR PRN; Protocol PRN Reason: Nausea And Vomiting Stop: 07/24/19 09:23 Last Admin: 01/22/19 09:37 Dose: 4 mg Laboratory Tests 01/22/19 01/22/19 01/22/19 04:50 04:50 10:45 WBC 21.8 H Hgb 12.7 Potassium 3.7 Creatinine 0.46 L Magnesium 2.1 Troponin I 0.03 TSH 4.806 01/22/19 11:03 WBC 18.0 H Hgb Potassium Creatinine Magnesium Troponin I TSH - Imaging and Cardiology Chest Xray: report reviewed Stress Test: report reviewed Echo: report reviewed - EKG Interpretation EKG results cardiology: personally reviewed (ECG with a.fib RVR, HR 158.), other (Telemetry reviewed with average HR previous 12 hours noted to be 112, a.fib. PVCs noted.) Consult Discharge Plan - Plan Referrals: Liana Torres, ELECTRONIC WARFARE SPECIALIST [Primary Care Provider] -
[2019-01-22 12:09] LABS: Activated Partial Thrombo Time 38.2 Seconds (26.0-36.0)
[2019-01-22 12:57] LABS: Estimated Average Glucose 123 mg/dl; Hemoglobin A1C 5.9 %
[2019-01-22] MEDS ORDERED: Sucralfate 1 GM TABLET PO PRN (14:37)
[2019-01-22] MEDS ORDERED: Ondansetron ODT 4 MG TAB.RAPDIS SL PRN (14:37)
[2019-01-22 14:45] LABS: Bilirubin,Urine Negative (Negative); Blood,Urine Negative (Negative); Clarity,Urine Clear (Clear); Color,Urine Yellow (Yellow); Glucose,Urine (UA) Normal (Normal); Ketones,Urine Trace mg/dL (Negative); Leukocyte Esterase,Urine Negative (Negative); Nitrite,Urine Negative (Negative); Protein,Urine 30 mg/dL (Neg-Trace); Specific Gravity,Urine 1.025 (1.010-1.025); Urobilinogen,Urine Normal (Normal)
[2019-01-22 14:47] LABS: Bacteria,Urine Few per hpf (None-Few); Hyaline Casts,Urine None Seen per lpf (None-Few); Squamous Epithelial Cell,Urine Many per lpf (None-Few); WBC,Urine 0-3 per hpf (0-3)
[2019-01-22] MEDS: *HR* Metformin 500 MG TABLET PO SCH (15:48)
--- NOTE | 2019-01-22 17:53 | Electrocardiograph Report ---
[place] [id number] Test Date: 2019-01-22 Pat Name: Lorenza Anne Department: EXAM2 Room: 2A15 Gender: F Housing Inspector: : 1970 Requested By: Dale Valerio Order Number: [id number] Reading MD: Nora Cotto Measurements Intervals Melba Rate: 158 P: IA: QRS: 17 QRSD: 107 T: -53 QT: 298 QTc: 445 Interpretive Statements Atrial fibrillation Low voltage, precordial leads Borderline repolarization abnormality Electronically Signed On 01-22-2019 17:51:35 EDT by Nora Cotto
[2019-01-22] MEDS: Gabapentin 300 MG CAPSULE PO SCH (20:08)
[2019-01-22] MEDS: *HR* LORazepam 1 MG TABLET PO PRN (21:30)
[2019-01-23] MEDS: 0.9 % Sodium Chloride 1,000 ML IVC SCH ×3 (00:20→17:24)
[2019-01-23 04:32] LABS: Basophils # 0.1 K/mcL (0.0-0.2); Basophils % 0.5 %; Eosinophils # 0.4 K/mcL (0.0-0.6); Eosinophils % 2.9 %; Hematocrit 31.3 % (35.3-44.9); Immature Granulocytes % 0.7 % (0-4); Lymphocytes # 3.3 K/mcL (0.6-4.6); Lymphocytes % 23.9 %; Mean Corpuscular HGB Conc 33.2 g/dL (31.6-35.5); Mean Corpuscular Hemoglobin 29.1 pg (28.0-33.3); Mean Corpuscular Volume 87.7 fL (83.0-100.0); Mean Platelet Volume 9.1 fL (9.4-12.4); Monocytes # 1.1 K/mcL (0.0-1.3); Monocytes % 8.1 %; Neutrophils # 8.9 K/mcL (1.6-8.9); Platelet Count 444 K/mcL (140-400); Red Blood Count 3.57 M/mcL (3.82-4.97); Red Cell Distribution Width 13.5 % (11.5-14.5); Segmented Neutrophils % 63.9 %
[2019-01-23 04:35] LABS: Hemoglobin 10.4 g/dL (11.5-15.4)
[2019-01-23 04:51] LABS: BUN/Creatinine Ratio 22 (6-26); Blood Urea Nitrogen 12 mg/dL (6-20); Calcium 8.6 mg/dL (8.6-10.3); Carbon Dioxide 21 mEq/L (23-29); Chloride 109 mEq/L (98-107); Chol/HDL Ratio 4.1 (0-4.9); Cholesterol 167 mg/dL (< 200); Glucose 117 mg/dL (70-105); HDL Cholesterol 41 mg/dL (40-59); LDL Cholesterol,Calculated 48 mg/dL (0-99); Osmolality,Calculated 293 (280-300); Potassium 3.6 mEq/L (3.5-5.1); Sodium 141 mEq/L (136-145); Triglycerides 388 mg/dL (< 150); eGFR For Non-African Americans > 60 (> 60)
[2019-01-23] MEDS ORDERED: *HR* Heparin 5,000 UNIT/ML VIAL IVP PRN ×2 (06:00)
[2019-01-23] MEDS ORDERED: Heparin 25,000 UNIT/250 ML D5W 25,000 UNIT/250 ML IV.SOLN IVC SCH (06:00)
[2019-01-23] MEDS: hydroCHLOROthiazide 25 MG TABLET PO SCH (07:34)
[2019-01-23] MEDS: Aspirin 81 MG TAB.CHEW PO SCH (07:37)
[2019-01-23] MEDS: *HR* Metformin 500 MG TABLET PO SCH ×2 (07:37→16:52)
[2019-01-23] MEDS: Insulin LISPRO 300 UNITS/3 ML VIAL SQ SCH ×3 (07:39→16:38)
[2019-01-23] MEDS: Acetaminophen 325 MG TABLET PO PRN ×2 (07:51→14:04)
[2019-01-23] MEDS: Metoprolol XL (24 HR) Succ 25 MG TAB.ER.24H PO SCH (08:41)
[2019-01-23] MEDS ORDERED: NON-FORMULARY MEDICATION 1 EACH EACH (Ezetimibe [Zetia] 10 MG) PO SCH (09:00)
[2019-01-23] MEDS ORDERED: Propranolol LA (24 HR) 80 MG CAP.SA.24H PO SCH (09:00)
--- NOTE | 2019-01-23 10:24 | Cardiology Progress Note ---
Date of Encounter: 01/23/19 Time of Encounter: 09:00 Assessment and Plan (1) New onset a-fib Current Visit: Yes Status: Acute Per cardiology: -New onset a.fib in the setting of GI illness. RVR on admission. Reported palpitations/fluttering. -On cardizem drip at 15mg/hour. Average HR previous 12 hours noted to be 120. -TTE 02/2018 with LVEF 65%, mild diastolic dysfunction, mild MR, no wall motion abnormalities noted. -12/2016 stress test nuclear images were negative for ischemia or infarct. ECG with borderline ischemia. -Chads 2 vasc score 3 (gender, HTN, DM). Was given xarelto yesterday in ER. -Continue cardizem drip, titrate for HR less than 100 as BP will tolerate. Will add BB, can uptitrate as BP will allow for better rate control. -Eliquis $10/month, patient agreeable to start anticoagulation, ordered. -Recommend outpatient sleep study and stress test. (2) Nausea vomiting and diarrhea Current Visit: Yes Status: Acute Per cardiology: -Reports nausea, vomiting, diarrhea. -WBC elevated. -management per primary service. Discussion w patient/family: The assessment and plan as outlined above was discussed with the patient who expressed understanding and agreement. All questions were answered. Thank you for involving us in the care of your patient. Please call with any questions. Discussed and reviewed with Subjective Principal diagnosis: a.fib RVR, GI illness Interval history: Patient denies complaints today. Denies any more vomiting, diarrhea. Objective Vital Signs, Last 4 Hours Temp Pulse Resp BP Pulse Ox 01/23/19 08:53 86 130/70 01/23/19 08:22 98.0 F 123 20 137/75 95 01/23/19 06:43 98.0 F 63 17 122/70 92 General: Conversant, No Apparent Distress HEENT: Atraumatic, Normocephaly, Mucus Membranes Moist Neck: No JVD, Normal carotid pulses Cardiac: Normal S1 and S2, No Murmur, Other (Irregularly irregular) Lungs: Normal Breath Sounds, No Wheeze, Rales, Rhonchi Neuro: Alert and responsive, No focal deficits noted Abdomen: Soft, Non-Tender Skin: No rashes noted on visualized skin Musculoskeletal: No Chest Wall Tenderness Extremities: No Clubbing, No Cyanosis, No Edema, Normal Pulses Results 01/23/19 03:59 01/23/19 03:59 Lab Results Active Medications Acetaminophen (Tylenol) 650 mg PO Q6HR PRN PRN Reason: Mild Pain/Fever Stop: 07/24/19 10:46 Last Admin: 01/23/19 07:51 Dose: 650 mg Apixaban (Eliquis) 5 mg PO BID [facility] Stop: 07/25/19 10:31 Aspirin (Aspirin) 81 mg PO DAILY JERSON Stop: 07/25/19 09:01 Last Admin: 01/23/19 07:37 Dose: 81 mg Dextrose/Water (Dextrose 50% (Syg)) 25 ml IVP AD PRN PRN Reason: Hypoglycemia Stop: 07/24/19 10:55 Escitalopram Oxalate (Lexapro) 20 mg PO DAILY [facility] Stop: 07/24/19 15:01 Last Admin: 01/23/19 07:36 Dose: 20 mg Estradiol (Estrace) 1 mg PO DAILY [facility]ERSON Stop: 07/25/19 09:01 Last Admin: 01/23/19 07:38 Dose: 1 mg Gabapentin (Neurontin) 300 mg PO HS [facility]ERSON Stop: 07/24/19 21:01 Last Admin: 01/22/19 20:08 Dose: 300 mg Glucagon (Glucagen) 1 mg IM ONCE PRN PRN Reason: Hypoglycemia Stop: 07/24/19 10:55 Glucose (Gluctose) 15 gm PO ONCE PRN PRN Reason: Hypoglycemia Stop: 07/24/19 10:55 Glucose (Gluctose) 30 gm PO ONCE PRN PRN Reason: Hypoglycemia Stop: 07/24/19 10:55 Hydrochlorothiazide (Hydrochlorothiazide) 12.5 mg PO DAILY [facility] Stop: 07/25/19 09:01 Last Admin: 01/23/19 07:34 Dose: 12.5 mg Diltiazem HCl 50 mg/ Sodium (Chloride) 50 mls @ 5 mls/hr IVC .Q10H JERSON; Protocol Stop: 07/24/19 04:46 Last Infusion: 01/23/19 10:12 Dose: 12.5 mg/hr, 12.5 mls/hr Sodium Chloride (0.9 % Sodium Chloride) 1,000 mls @ 125 mls/hr IVC .Q8H [facility] Stop: 07/24/19 06:16 Last Admin: 01/23/19 08:42 Dose: 125 mls/hr Dextrose (Dextrose 5%) 1,000 mls @ 100 mls/hr IVC .Q10H PRN PRN Reason: HYPOGLYCEMIA Stop: 07/24/19 10:55 Insulin Human Lispro (Humalog) 0 units SQ TIDAC [facility]; Protocol Stop: 07/24/19 11:31 Last Admin: 01/23/19 07:39 Dose: Not Given Levothyroxine Sodium (Synthroid) 150 mcg PO DAILY@0630 [facility] Stop: 07/25/19 06:31 Last Admin: 01/23/19 07:37 Dose: 150 mcg Lorazepam (Ativan) 0.5 mg PO HS PRN PRN Reason: Anxiety Stop: 07/24/19 21:01 Last Admin: 01/22/19 21:30 Dose: 0.5 mg Losartan Potassium (Cozaar) 25 mg PO DAILY [facility]; Protocol Stop: 07/25/19 09:01 Last Admin: 01/23/19 07:37 Dose: 25 mg Magnesium Hydroxide (Milk Of Magnesia Conc) 10 ml PO DAILY PRN PRN Reason: Constipation Stop: 07/24/19 10:46 Metformin HCl (Glucophage) 500 mg PO BIDWM [facility] Stop: 07/24/19 17:01 Last Admin: 01/23/19 07:37 Dose: 500 mg Metoprolol Succinate (Toprol Xl) 25 mg PO DAILY [facility] Stop: 07/25/19 09:01 Last Admin: 01/23/19 08:41 Dose: 25 mg Naloxone HCl (Narcan) 0.4 mg IVP Q2M PRN PRN Reason: SEE COMMENTS Stop: 07/24/19 10:46 Omeprazole (Prilosec) 40 mg PO BIDAC [facility] Stop: 07/24/19 16:31 Last Admin: 01/23/19 07:37 Dose: 40 mg Ondansetron HCl (Zofran Odt) 4 mg SL Q6HR PRN PRN Reason: Nausea And Vomiting Stop: 07/24/19 14:38 Sucralfate (Carafate) 1 gm PO QIDAC PRN PRN Reason: Acid Reflux Stop: 07/24/19 14:38 Laboratory Tests 01/23/19 01/23/19 03:59 03:59 WBC 14.0 H Hgb 10.4 L D Creatinine 0.55 L - Imaging and Cardiology Chest Xray: report reviewed Stress Test: report reviewed Echo: report reviewed - EKG Interpretation EKG results cardiology: other (Telemetry reviewed with average HR previous 12 hours noted to be 120, a.fib. PVCs noted.) Consult Discharge Plan - Plan Referrals: Liana Torres CNP [Primary Care Provider] - 01/29/19 1:00 pm (Please follow up as schedule..)
[2019-01-23] MEDS: Apixaban 5 MG TABLET PO SCH ×2 (11:27→20:26)
--- NOTE | 2019-01-23 14:16 | Internal Med Progress Note ---
Hospitalist Progress Note - Encounter Date of Encounter: 01/23/19 Time of Encounter: 14:11 - Subjective Interval History: Pt states she felt some palpitations earlier tis morning but that seemed to have resolved since she was given Metoprolol. She denies CP or SOB. She denies fever, chills, N/V or diarrhea. - Exam Vitals: Temp Pulse Resp BP Pulse Ox 98.6 F 80 19 114/60 94 01/23/19 10:58 01/23/19 10:58 01/23/19 10:58 01/23/19 10:58 01/23/19 10:58 Exam: General appearance: Present: obese Exam: Present: atraumatic, normocephalic Eye exam: Present: PERRL, conjuntiva pink, sclera anicteric Pupils: Present: PERRLA Neck exam general surgery: Present: supple, trachea midline. Absent: lymphadenopathy Respiratory exam: Present: CTAB. Absent: accessory muscle use, rales, rhonchi, wheezes Cardiovascular exam: Present: Regular rate rhythm. Absent: diastolic murmur, gallop, rubs, systolic murmur GI/Abdominal exam: Present: normal bowel sounds, soft, no peritoneal signs. Absent: distended, tenderness Extremities exam: Present: warm, radial pulses palpable and symmetrical. Absent: calf tenderness, cyanotic, pedal edema Neurological exam: Present: CN II-XII intact, oriented X3, no focal deficits. Absent: pronater drift, facial droop, speech deficit Skin exam: Present: dry, intact - Assessment and Plan (1) Atrial fibrillation with RVR Current Visit: Yes Status: Acute Assessment and Plan: [id number] Vasc score 3. Started on Cardizem gtt in ED and continued on the floor. Cardiology consulting and echo showed EF 65%. Will continue to monitor on telemetry. Started on heparin gtt. Will likely switch to Eliquis tonight/at discharge. Pt started on Metoprolol by cardiology and stopping inderal. Echo EV/EV echocardiogram Impressions: LVEF 65%. Indeterminate diastolic function. Normal right ventricular structure and function. Mildly dilated left atrium. Mild tricuspid regurgitation. Mild pulmonary hypertension. (2) Essential hypertension Current Visit: No Status: Chronic Assessment and Plan: Losartan, HCTZ, Inderal. Held Inderal 01/22/19 (3) Diabetes mellitus type 2 in obese Current Visit: No Status: Chronic Assessment and Plan: On Metformin. Will place on SSI and resume home metformin. (4) Hypothyroidism Current Visit: No Status: Chronic Assessment and Plan: Synthroid. (5) Anxiety and depression Current Visit: No Status: Chronic Assessment and Plan: Resume home meds (6) History of OCD (obsessive compulsive disorder) Current Visit: No Status: Chronic Assessment and Plan: Lexapro, Neurotin DVT Prophylaxis: on Heparin but will likely be switched to Eliquis - Time Spent with Patient Total time spent is greater than 50% in coordination of care (as documented) at patient's floor/unit and/or counseling patient: less than 15 minutes Plan of Care Discussed with: patient Internal Medicine: Result - Labs CBC & Chem 7: 01/23/19 03:59 01/23/19 03:59 Labs: Short CBC 01/23/19 Range/Units 03:59 WBC 14.0 H (4.3-11.1) K/mcL Hgb 10.4 L D (11.5-15.4) g/dL Hct 31.3 L (35.3-44.9) % Plt Count 444 H (140-400) K/mcL Neutrophils # 8.9 (1.6-8.9) K/mcL BMP 01/23/19 03:59 Sodium 141 Potassium 3.6 Chloride 109 H Carbon Dioxide 21 L BUN 12 Creatinine 0.55 L Glucose 117 H Calcium 8.6 Urine 01/22/19 Range/Units 14:32 Urine Color Yellow (Yellow) Urine Clarity Clear (Clear) Urine pH 6.0 (5.0-8.0) pH Units Ur Specific [place] 1.025 (1.010-1.025) Urine Protein 30 H (Neg-Trace) mg/dL Urine Glucose (UA) Normal (Normal) mg/dL - ABG Interpretation ABG results: PT/INR, D-dimer PT 18.6 Seconds (9.4-12.1) H D 01/22/19 11:03 - Impressions Impressions Echocardiogram 01/22/19 17:22 Impressions: LVEF 65%. Indeterminate diastolic function. Normal right ventricular structure and function. Mildly dilated left atrium. Mild tricuspid regurgitation. Mild pulmonary hypertension. Left Ventricular Wall Motion: Rest Echo Findings All wall segments showed normal motion. Findings: Study Quality * Technically adequate exam. ECG Findings * Atrial fibrillation, RVR Left Ventricle * LVEF 65%. * Normal LV chamber size, wall thickness and systolic function. * Indeterminate diastolic function. Right Ventricle * Normal right ventricular structure and function. Left Atrium * Mildly dilated left atrium. Right Atrium * Normal right atrial size. Interatrial Septum * Interatrial septum not well evaluated. Aortic Valve * Aortic valve not well visualized. * No aortic stenosis. * No aortic regurgitation. Mitral Valve * Normal mitral valve structure. * No mitral stenosis. * Trace mitral regurgitation. Tricuspid Valve * Normal tricuspid valve structure. * No tricuspid stenosis. * Mild tricuspid regurgitation. * Estimated RVSP is 39 mmHg. * Estimated RA pressure is 8 mmHg. * Mild pulmonary hypertension. Pulmonic Valve * Pulmonic valve is not well visualized. * No pulmonic stenosis. * No pulmonic regurgitation. Aorta * Normally sized aortic root. Pericardium * The pericardium appears normal. IVC * The IVC is dilated. * > 50% respiratory change Consult Discharge Plan - Plan Referrals: iLana Torres CNP [Primary Care Provider] - 01/29/19 1:00 pm (Please follow up as schedule..) (4) Hypothyroidism Qualifiers: Hypothyroidism type: unspecified Qualified Code(s): E03.9 - Hypothyroidism, unspecified
[2019-01-23] MEDS: Diltiazem CD (24hr) 180 MG CAPSULE PO SCH (15:09)
[2019-01-23] MEDS: Gabapentin 300 MG CAPSULE PO SCH (20:26)
[2019-01-23] MEDS: *HR* LORazepam 1 MG TABLET PO PRN (20:31)
[2019-01-24] MEDS: 0.9 % Sodium Chloride 1,000 ML IVC SCH ×2 (00:21→08:30)
[2019-01-24] MEDS: Acetaminophen 325 MG TABLET PO PRN (04:53)
[2019-01-24] MEDS: Aspirin 81 MG TAB.CHEW PO SCH (08:29)
[2019-01-24] MEDS: Apixaban 5 MG TABLET PO SCH (08:29)
[2019-01-24] MEDS: *HR* Metformin 500 MG TABLET PO SCH (08:29)
[2019-01-24] MEDS: Metoprolol XL (24 HR) Succ 25 MG TAB.ER.24H PO SCH (08:29)
[2019-01-24] MEDS: Diltiazem CD (24hr) 180 MG CAPSULE PO SCH (08:29)
[2019-01-24] MEDS: hydroCHLOROthiazide 25 MG TABLET PO SCH (08:29)
[2019-01-24] MEDS: Insulin LISPRO 300 UNITS/3 ML VIAL SQ SCH ×2 (08:30→11:26)
[2019-01-24 10:51] VITALS: BP 144/70
--- NOTE | 2019-01-24 11:41 | Discharge Summary ---
- NOTES TO OUTPATIENT PROVIDER Notes to Outpatient Provider: PCP in 5 to 7 days. Cardiology out pt. Needs out pt sleep study. Date of Encounter: 01/24/19 Time of Encounter: 11:38 - Discharge Diagnosis (1) Atrial fibrillation with RVR Priority: Primary Status: Acute Assessment and Plan: [id number] Vasc score 3. Started on Cardizem gtt in ED and continued on the floor. Cardiology consulting and echo showed EF 65%. Will continue to monitor on telemetry. Started on heparin gtt. Will likely switch to Eliquis tonight/at discharge. Pt started on Cardizem and Metoprolol by cardiology and stopping inderal. Pt is to follow up with cardiology out pt. Currently in SR. Echo EV/EV echocardiogram Impressions: LVEF 65%. Indeterminate diastolic function. Normal right ventricular structure and function. Mildly dilated left atrium. Mild tricuspid regurgitation. Mild pulmonary hypertension. (2) Essential hypertension Priority: Secondary Status: Chronic Assessment and Plan: Losartan, HCTZ, Inderal. Held Inderal 01/22/19 (3) Diabetes mellitus type 2 in obese Priority: Secondary Status: Chronic Assessment and Plan: On Metformin at home. (4) Hypothyroidism Priority: Secondary Status: Chronic Assessment and Plan: Synthroid. Qualifiers: Hypothyroidism type: unspecified Qualified Code(s): E03.9 - Hypothyroidism, unspecified (5) Anxiety and depression Priority: Secondary Status: Chronic Assessment and Plan: Resume home meds (6) History of OCD (obsessive compulsive disorder) Priority: Secondary Status: Chronic Assessment and Plan: [facility] course: History of present illness: Dr. Vogel Ms. Anne is a 48 year old female with pas medical history of DM-II, hypothyroidism, HTN, OCD, HLD, anxiety and depression. Pt presents with complaint of palpitations. She states she has had issues with palpitations for which she was on inderal in the past but denies history of afib that she is aware of. She states about a year ago, she felt dizzy during a treadmill stress test and after the stress test, she was informed b PCP that results where abnormal. She was referred to cardiology at the time. Discharge discussed with: patient - Time Spent with Patient Total time spent providing and/or coordinating discharge services: Time spent: Greater than 30 minutes - Discharge Medications Prescriptions: New Apixaban [Eliquis] 5 mg PO BID 30 Days #60 tablet Metoprolol XL (24 HR) Succ [Toprol Xl] 25 mg PO DAILY 30 Days #30 tab.er.24h Diltiazem CD (24hr) [Cardizem CD] 180 mg PO DAILY 30 Days #30 cap.er.24h Continue Losartan [Cozaar] 25 mg PO DAILY Escitalopram [Lexapro] 20 mg PO DAILY Estradiol [Estrace] 1 mg PO DAILY Omeprazole [PriLOSEC] 40 mg PO BID LORazepam [Ativan] 1 mg PO BID PRN PRN Reason: Anxiety Levothyroxine Sodium [Levoxyl] 150 mcg PO QAM hydroCHLOROthiazide [Hydrochlorothiazide] 12.5 mg PO DAILY Ondansetron ODT [Zofran ODT] 4 mg SL Q6HR PRN #14 tab.rapdis PRN Reason: Nausea And Vomiting Gabapentin [Neurontin] 300 mg PO HS Metformin HCl [Metformin ER Gastric] 500 mg PO BID Ezetimibe [Zetia] 10 mg PO DAILY Sucralfate [Carafate] 1 gm PO QIDAC PRN PRN Reason: acid reflux Cholecalciferol (Vitamin D3) [Vitamin D3] 2,000 unit PO DAILY Discontinued Propranolol LA (24 HR) [Inderal LA] 80 mg PO DAILY Home Medications: Escitalopram [Lexapro] 20 mg PO DAILY 02/17/18 [History] Estradiol [Estrace] 1 mg PO DAILY 02/17/18 [History] LORazepam [Ativan] 1 mg PO BID PRN 02/17/18 [History] Levothyroxine Sodium [Levoxyl] 150 mcg PO QAM 02/17/18 [History] Losartan [Cozaar] 25 mg PO DAILY 02/17/18 [History] Omeprazole [PriLOSEC] 40 mg PO BID 02/17/18 [History] hydroCHLOROthiazide [Hydrochlorothiazide] 12.5 mg PO DAILY 02/17/18 [History] Ondansetron ODT [Zofran ODT] 4 mg SL Q6HR PRN #14 tab.rapdis 09/13/18 [Rx] Ezetimibe [Zetia] 10 mg PO DAILY 01/22/19 [History] Gabapentin [Neurontin] 300 mg PO HS 01/22/19 [History] Metformin HCl [Metformin ER Gastric] 500 mg PO BID 01/22/19 [History] Sucralfate [Carafate] 1 gm PO QIDAC PRN 01/22/19 [History] Apixaban [Eliquis] 5 mg PO BID 30 Days #60 tablet 01/23/19 [Rx] Cholecalciferol (Vitamin D3) [Vitamin D3] 2,000 unit PO DAILY 01/23/19 [History] Metoprolol XL (24 HR) Succ [Toprol Xl] 25 mg PO DAILY 30 Days #30 tab.er.24h 01/23/19 [Rx] Diltiazem CD (24hr) [Cardizem CD] 180 mg PO DAILY 30 Days #30 cap.er.24h 01/24/19 [Rx] Allergies/Adverse Reactions: Allergy/AdvReac Type Severity Reaction Status Date / Time amitriptyline Allergy Hives Verified 01/23/19 08:54 clarithromycin [From Biaxin] AdvReac Intermediate Vomiting Verified 01/23/19 08:54 oxycodone [From Percocet] AdvReac Vomiting Verified 01/23/19 08:54 risperidone [From Risperdal] AdvReac Hypertensio Verified 01/23/19 08:54 n Biaxin AdvReac Severe Vomiting Uncoded 01/23/19 08:54 Date of admission: 01/22/19 10:45 Primary care physician: Liana Torres CNP Consults: 01/22/19 08:49 Consult to Pastoral Services [CONS] Routine Comment: 01/22/19 10:39 Consult to Cardiology [CONS] Routine Comment: Consulting Provider: Cardiology Sonam Reason for Consult: afib RVR Call Completed: Yes Discharging clinician: Alyssia Vogel Anticipated date of discharge: 01/24/19 - Constitutional Vitals: Temp Pulse Resp BP Pulse Ox 99.1 F 83 18 144/70 92 01/24/19 10:49 01/24/19 10:49 01/24/19 10:49 01/24/19 10:49 01/24/19 10:49 General appearance: Present: obese Exam: General appearance: Present: obese Exam: Present: atraumatic, normocephalic Eye exam: Present: PERRL, conjuntiva pink, sclera anicteric Pupils: Present: PERRLA Neck exam general surgery: Present: supple, trachea midline. Absent: lymphadenopathy Respiratory exam: Present: CTAB. Absent: accessory muscle use, rales, rhonchi, wheezes Cardiovascular exam: Present: Regular rate rhythm. Absent: diastolic murmur, gallop, rubs, systolic murmur GI/Abdominal exam: Present: normal bowel sounds, soft, no peritoneal signs. Absent: distended, tenderness Extremities exam: Present: warm, radial pulses palpable and symmetrical. Absent: calf tenderness, cyanotic, pedal edema Neurological exam: Present: CN II-XII intact, oriented X3, no focal deficits. Absent: pronater drift, facial droop, speech deficit Skin exam: Present: dry, intact - Patient Status Disposition: Home, Self-Care Condition: Good Overall status at discharge: patient is back to baseline - Discharge Instructions Follow Up With: Liana Torres CNP [Primary Care Provider] - 01/29/19 1:00 pm (Please follow up as schedule..) - Diet and Activity Activity: increase activity as tolerated Diet: diabetic diet, low fat, low cholesterol, low salt diet
== END 2019-01-24 15:07 | disposition home or self-care (01) | DRG 310 ==
LOC: EMEROOARM 04:20 → 2ANU 04:20
PROVIDERS: ADMIT Family Medicine; ATTEND Family Medicine

== ENCOUNTER 2019-06-17 16:01 | Observation (INO) ==
--- NOTE | 2019-06-17 16:26 | Emergency Department Note ---
Disposition Clinical Impression: Vision loss, right eye, Amaurosis fugax Headache Qualifiers: Headache type: unspecified Headache chronicity pattern: unspecified pattern Intractability: not intractable Qualified Code(s): R51 - Headache Chest pain Qualifiers: Chest pain type: unspecified Qualified Code(s): R07.9 - Chest pain, unspecified Disposition: Admitted As Inpatient Referrals: Liana Torres CNP [Primary Care Provider] - Forms: ED Satisfaction Letter Time of Disposition: 18:36 General Adult HPI - General Chief complaint: ED Headache Stated complaint: Vision loss in right eye, neuro symptoms Time Seen by Provider: 06/17/19 16:22 Source: patient Mode of arrival: private vehicle Limitations: no limitations Nursing Notes Reviewed: Yes Vital Signs Reviewed: Yes - History of Present Illness HPI Narrative: Patient is a 49-year-old female with a past medical history including atrial fibrillation on Eliquis, hypertension, hyperlipidemia, GERD, hypothyroidism, presenting with a chief complaint of right vision loss. The patient states around 1 PM, she suddenly developed right vision loss and floaters. She states the loss of vision was like a curtain coming down. She complains of a generalized pounding headache as well. She also had some mid substernal chest pain without any shortness of breath or diaphoresis, nausea or vomiting. She states she has never experienced this vision loss or floaters before. She denies any eye pain. She states that resolved after several minutes. She states she has her vision at this time. Denies going from a dark room to a light room. Denies any reading glasses, history of retinal detachment, gl aucoma. She states she feels like her right face feels tight but denies any numbness, weakness, slurred speech, confusion, lightheadedness or dizziness. She states she still has a headache at this time. Pain Scale: 0 - Related Data Home Medications Medication Instructions Recorded Confirmed Escitalopram [Lexapro] 20 mg PO DAILY 02/17/18 01/23/19 Estradiol [Estrace] 1 mg PO DAILY 02/17/18 01/23/19 LORazepam [Ativan] 1 mg PO BID PRN 02/17/18 01/23/19 Levothyroxine Sodium [Levoxyl] 150 mcg PO QAM 02/17/18 01/23/19 Losartan [Cozaar] 25 mg PO DAILY 02/17/18 01/23/19 Omeprazole [PriLOSEC] 40 mg PO BID 02/17/18 01/23/19 hydroCHLOROthiazide 12.5 mg PO DAILY 02/17/18 01/23/19 [Hydrochlorothiazide] Ezetimibe [Zetia] 10 mg PO DAILY 01/22/19 01/23/19 Gabapentin [Neurontin] 300 mg PO HS 01/22/19 01/23/19 Metformin HCl [Metformin ER 500 mg PO BID 01/22/19 01/23/19 Gastric] Sucralfate [Carafate] 1 gm PO QIDAC PRN 01/22/19 01/23/19 Cholecalciferol (Vitamin D3) 2,000 unit PO DAILY 01/23/19 01/23/19 [Vitamin D3] Previous Rx's Medication Instructions Recorded Ondansetron ODT [Zofran ODT] 4 mg SL Q6HR PRN #14 tab.rapdis 09/13/18 Allergies Allergy/AdvReac Type Severity Reaction Status Date / Time amitriptyline Allergy Hives Verified 01/23/19 08:54 clarithromycin [From Biaxin] AdvReac Intermediate Vomiting Verified 01/23/19 08:54 oxycodone [From Percocet] AdvReac Vomiting Verified 01/23/19 08:54 risperidone [From Risperdal] AdvReac Hypertensio Verified 01/23/19 08:54 n Biaxin AdvReac Severe Vomiting Uncoded 01/23/19 08:54 All systems ED: reviewed and negative except as stated. Review of Systems: As Per HPI Constitutional: Denies: fever, chills Eyes: Reports: vision change. Denies: eye pain ENT ED: Denies: congestion Cardiovascular: Reports: chest pain. Denies: palpitations Respiratory: Denies: cough, dyspnea Gastrointestinal: Denies: abdominal pain, nausea, vomiting Neurological: Reports: headache. Denies: weakness, numbness, confusion, abnormal gait, vertigo Past Medical History - Past Medical History Attestation: Yes The following information was validated with the patient. Source: patient Medical history: Reports: arthritis, atrial fibrillation, diabetes, fibromyalgia, GERD, hyperlipidemia, hypertension, thyroid disease, other Surgical history: Reports: appendectomy, cholecystectomy, hysterectomy Psychiatric history: Reports: anxiety, depression, PTSD, previous psychiatric hospitalization - Social History Smoking Status: Never smoker Smokeless Tobacco Status: No Alcohol use: Reports: none Drug use: Reports: none Physical Exam - General Limitations: no limitations General appearance: alert, in no apparent distress - Head Head exam: atraumatic, normocephalic - Eye Eye exam: Present: normal appearance, PERRL, EOMI. Absent: nystagmus - ENT ENT exam: normal exam, normal oropharynx - Neck Neck exam: Present: normal inspection, trachea midline - Chest Chest inspection: Present: normal inspection, symmetric chest wall rise - Respiratory Respiratory exam: Present: normal lung sounds bilaterally. Absent: respiratory distress, wheezes - Cardiovascular Cardiovascular exam: Present: regular rate, normal rhythm - Abdominal Exam Abdominal exam: Present: soft, Non-Tender. Absent: distention - Extremities Exam Extremities exam: Present: full ROM, normal capillary refill. Absent: pedal edema, calf tenderness - Neurological Exam Neurological exam: Present: alert, oriented X3, CN II-XII intact. Absent: motor sensory deficit - Expanded Neurological Exam Speech: Present: fluid speech Cerebellar function: finger to nose: Normal, heel to barney: Normal Motor strength - LUE: 5/5 Motor strength - RUE: 5/5 Motor strength - LLE: 5/5 Motor strength - RLE: 5/5 Upper motor neuron exam: florinda neglect: Absent bilaterally, pronator drift: Absent bilaterally Sensory exam upper extremity: light touch: Normal Sensory exam lower extremity: light touch: Normal - Psychiatric Psychiatric exam: Present: normal affect, normal mood - Skin Skin exam: Present: warm, dry Course Vital Signs Temperature 98.6 F 06/17/19 16:13 Pulse Rate 78 06/17/19 16:13 Respiratory Rate 18 06/17/19 16:13 Blood Pressure 135/61 06/17/19 16:13 O2 Sat by Pulse Oximetry 97 06/17/19 16:13 Temperature 98.6 F 06/17/19 16:13 Pulse Rate 78 06/17/19 16:13 Respiratory Rate 18 06/17/19 16:13 Blood Pressure 135/61 06/17/19 16:13 O2 Sat by Pulse Oximetry 97 06/17/19 16:13 Oxygen Delivery Oxygen Delivery Room Air Medical Decision Making - MDM Narrative Medical decision making narrative: Patient is presenting with right visual loss and floaters since 1 PM that is resolved at this time. She denies any visual loss at this time. NIHSS is 0. Stroke alert was not called. Patient is on Eliquis for atrial fibrillation. We will obtain visual acuity. Patient has no peripheral vision loss. ED [id number] bedside ocular ultrasound was performed by me and Dr. Couch that shows no vitreous hemorrhage or retinal detachment. Optic nerve did not appear to be dilated. Lens intact. We will obtain basic lab work, EKG, troponin, CT head to further evaluate. Will obtain CTA head and neck as well. Will give her tylenol for headache and zofran for nausea. Chest pain free at this time. Concern for amaurosis fugax. HEART score 4. 18:20 Imaging, labs reviewed. No evidence of aneurysm, dissection, occlusion on the CTA, no evidence of acute intracranial abnormality on CT head. Troponin less than 0.03. Patient will be admitted for further evaluation for ACS workup and TIA workup. 18:[address] Bell, hospitalist who accepts admission - Medical Records Medical records reviewed: Yes I reviewed the patient's medical records. - Lab Data Lab results reviewed: Yes I reviewed the patient's lab results. Result diagrams: 06/17/19 16:25 06/17/19 16:25 Lab Results 06/17/19 06/17/19 06/17/19 Range/Units 16:25 16:25 16:25 WBC 10.0 (4.3-11.1) K/mcL RBC 3.85 (3.82-4.97) M/mcL Hgb 11.1 L (11.5-15.4) g/dL Hct 32.9 L (35.3-44.9) % MCV 85.5 (83.0-100.0) fL MCH 28.8 (28.0-33.3) pg MCHC 33.7 (31.6-35.5) g/dL RDW 12.5 (11.5-14.5) % Plt Count 414 H (140-400) K/mcL MPV 8.7 L (9.4-12.4) fL PT 11.1 (9.4-12.1) Seconds INR 1.0 APTT 35.2 (26.0-36.0) Seconds Sodium 136 (136-145) mEq/L Potassium 3.5 (3.5-5.1) mEq/L Chloride 100 (98-107) mEq/L Carbon Dioxide 23 (23-29) mEq/L BUN 12 (6-20) mg/dL Creatinine 0.61 (0.60-1.20) mg/dL Est GFR ( Amer) > 60 (> 60) Est GFR (Non-Af Amer) > 60 (> 60) BUN/Creatinine Ratio 20 (6-26) Glucose 173 H (70-105) mg/dL Calculated Osmolality 286 (280-300) Calcium 9.7 (8.6-10.3) mg/dL Troponin I < 0.03 (< 0.04) ng/mL - Radiology Data Radiology results reviewed: Yes I reviewed the patient's radiology results. Angiography CT 06/17/19 17:07 IMPRESSION: No CT evidence of acute intracranial abnormalities. No high-grade stenosis or focal occlusion involving the intracranial or cervical vasculature. No evidence of acute dissection. No evidence of aneurysm. D/ / 06/17/2019 18:17:34 Ronan Hernandez MD / juanjose Interpreting Provider: Ronan Hernandze MD Neck CTA 06/17/19 17:07 IMPRESSION: No CT evidence of acute intracranial abnormalities. No high-grade stenosis or focal occlusion involving the intracranial or cervical vasculature. No evidence of acute dissection. No evidence of aneurysm. D/ / 06/17/2019 18:17:34 Ronan Hernandez MD / juanjose Interpreting Provider: Ronan Hernandez MD - EKG Data EKG #1 EKG attestation: Yes I reviewed and interpreted this EKG. EKG results narrative: EKG obtained at 1615 shows sinus rhythm with heart rate 78, MI interval 172, QRS duration 97, QTC 452, no ST elevation, no ST depression, T wave inversion in lead 3, compared to old EKG on 03/14/2019 which is noted any changes. NIH Stroke Scale - Level of Consciousness LOC: Alert - LOC Questions LOC Questions: Answers both correctly - LOC Commands LOC Commands: Performs both correctly - Best Gaze Best Gaze: Normal - Visual Visual: No visual loss - Facial Palsy Facial Palsy: Normal - Motor Arms Motor Arm-Left: No drift for 10 seconds Motor Arm-Right: No drift for 10 seconds - Motor Legs Motor Leg-Left: No drift for 5 seconds Motor Leg-Right: No drift for 5 seconds - Limb Ataxia Limb Ataxia: Normal, No Ataxia - Sensory Sensory: Normal - Best Language Best Language: No aphasia - Dysarthria Dysarthria: Normal - Extinction and Inattention Extinction and Inattention: Normal - NIHSS Total Score NIHSS Total Score: 0 Heart Score - Score History: Slightly Suspicious EKG: Non Specific repolarisation Disturbance Age: 45-65 Risk Factors: Equal/Greater than 3 risk factor or history of atherosclerotic disease Troponin: Less than normal limit HEART Score Total: 4
[2019-06-17 16:38] LABS: Hematocrit 32.9 % (35.3-44.9); Hemoglobin 11.1 g/dL (11.5-15.4); Mean Corpuscular HGB Conc 33.7 g/dL (31.6-35.5); Mean Corpuscular Hemoglobin 28.8 pg (28.0-33.3); Mean Corpuscular Volume 85.5 fL (83.0-100.0); Mean Platelet Volume 8.7 fL (9.4-12.4); Platelet Count 414 K/mcL (140-400); Red Blood Count 3.85 M/mcL (3.82-4.97); Red Cell Distribution Width 12.5 % (11.5-14.5)
[2019-06-17 16:55] LABS: Prothrombin Time 11.1 Seconds (9.4-12.1)
[2019-06-17 16:58] LABS: Activated Partial Thrombo Time 35.2 Seconds (26.0-36.0)
[2019-06-17] MEDS ORDERED: Isovue-370 500 ML BOTTLE IVP ONE (17:07)
[2019-06-17] MEDS ORDERED: Ondansetron 4 MG/2 ML VIAL IVP ONE (17:07)
[2019-06-17 17:10] LABS: BUN/Creatinine Ratio 20 (6-26); Blood Urea Nitrogen 12 mg/dL (6-20); Calcium 9.7 mg/dL (8.6-10.3); Carbon Dioxide 23 mEq/L (23-29); Chloride 100 mEq/L (98-107); Glucose 173 mg/dL (70-105); Osmolality,Calculated 286 (280-300); Potassium 3.5 mEq/L (3.5-5.1); Sodium 136 mEq/L (136-145); Troponin I < 0.03 ng/mL (< 0.04); eGFR For African Americans > 60 (> 60); eGFR For Non-African Americans > 60 (> 60)
--- NOTE | 2019-06-17 17:58 | Emergency Department Note ---
Disposition Clinical Impression: Vision loss, right eye, Amaurosis fugax Headache Qualifiers: Headache type: unspecified Headache chronicity pattern: unspecified pattern Intractability: not intractable Qualified Code(s): R51 - Headache Chest pain Qualifiers: Chest pain type: unspecified Qualified Code(s): R07.9 - Chest pain, unspecified Disposition: Admitted As Inpatient Condition: Fair Time of Disposition: 18:36 General Adult HPI - General Chief complaint: ED Headache Stated complaint: Vision loss in right eye, neuro symptoms Time Seen by Provider: 06/17/19 16:22 Source: patient Mode of arrival: private vehicle Limitations: no limitations - History of Present Illness Pain Scale: 0 - Related Data Home Medications Medication Instructions Recorded Confirmed Escitalopram [Lexapro] 20 mg PO DAILY 02/17/18 06/17/19 Estradiol [Estrace] 1 mg PO DAILY 02/17/18 06/17/19 LORazepam [Ativan] 0.5 mg PO BID PRN 02/17/18 06/17/19 Levothyroxine Sodium [Levoxyl] 175 mcg PO QAM 02/17/18 06/17/19 Losartan [Cozaar] 25 mg PO DAILY 02/17/18 06/17/19 Ezetimibe [Zetia] 10 mg PO DAILY 01/22/19 06/17/19 Gabapentin [Neurontin] 300 mg PO HS 01/22/19 06/17/19 Metformin HCl [Metformin ER 500 mg PO BID 01/22/19 06/17/19 Gastric] Sucralfate [Carafate] 1 gm PO QIDAC PRN 01/22/19 06/17/19 Cholecalciferol (Vitamin D3) 2,000 unit PO DAILY 01/23/19 06/17/19 [Vitamin D3] Apixaban [Eliquis] 5 mg PO BID 06/17/19 06/17/19 Diltiazem CD (24hr) [Cardizem CD] 180 mg PO DAILY 06/17/19 06/17/19 Ferrous Sulfate [Iron] 325 mg PO DAILY 06/17/19 06/17/19 Metoprolol [Lopressor] 50 mg PO BID 06/17/19 06/17/19 Pantoprazole Sodium [Protonix] 40 mg PO DAILY 06/17/19 06/17/19 Previous Rx's Medication Instructions Recorded Ondansetron ODT [Zofran ODT] 4 mg SL Q6HR PRN #14 tab.rapdis 09/13/18 Allergies Allergy/AdvReac Type Severity Reaction Status Date / Time amitriptyline Allergy Hives Verified 06/17/19 19:29 clarithromycin [From Biaxin] AdvReac Intermediate Vomiting Verified 06/17/19 19:29 oxycodone [From Percocet] AdvReac Vomiting Verified 06/17/19 19:29 risperidone [From Risperdal] AdvReac Hypertensio Verified 06/17/19 19:29 n Biaxin AdvReac Severe Vomiting Uncoded 06/17/19 19:29 Constitutional: Denies: fever, chills Eyes: Reports: vision change. Denies: eye pain ENT ED: Denies: congestion Cardiovascular: Reports: chest pain. Denies: palpitations Respiratory: Denies: cough, dyspnea Gastrointestinal: Denies: abdominal pain, nausea, vomiting Neurological: Reports: headache. Denies: weakness, numbness, confusion, abnormal gait, vertigo Past Medical History - Past Medical History Medical history: Reports: arthritis, atrial fibrillation, diabetes, fibromyalgia, GERD, hyperlipidemia, hypertension, thyroid disease, other Surgical history: Reports: appendectomy, cholecystectomy, hysterectomy Psychiatric history: Reports: anxiety, depression, PTSD, previous psychiatric hospitalization - Social History Smoking Status: Never smoker Smokeless Tobacco Status: No Alcohol use: Reports: none Drug use: Reports: none Physical Exam - General Limitations: no limitations General appearance: alert, in no apparent distress Course Vital Signs Temperature 98.6 F 06/17/19 16:13 Pulse Rate 78 06/17/19 16:13 Respiratory Rate 18 06/17/19 16:13 Blood Pressure 135/61 06/17/19 16:13 O2 Sat by Pulse Oximetry 97 06/17/19 16:13 Temperature 98.7 F 06/17/19 20:51 Pulse Rate 66 06/17/19 20:51 Respiratory Rate 16 06/17/19 20:51 Blood Pressure 130/64 06/17/19 20:51 O2 Sat by Pulse Oximetry 94 06/17/19 20:51 Oxygen Delivery Oxygen Delivery Room Air Medical Decision Making - Lab Data Result diagrams: 06/17/19 16:25 06/17/19 16:25 Lab Results 06/17/19 06/17/19 06/17/19 Range/Units 16:25 16:25 16:25 WBC 10.0 (4.3-11.1) K/mcL RBC 3.85 (3.82-4.97) M/mcL Hgb 11.1 L (11.5-15.4) g/dL Hct 32.9 L (35.3-44.9) % MCV 85.5 (83.0-100.0) fL MCH 28.8 (28.0-33.3) pg MCHC 33.7 (31.6-35.5) g/dL RDW 12.5 (11.5-14.5) % Plt Count 414 H (140-400) K/mcL MPV 8.7 L (9.4-12.4) fL ESR (0-15) mm/hr PT 11.1 (9.4-12.1) Seconds INR 1.0 APTT 35.2 (26.0-36.0) Seconds Sodium 136 (136-145) mEq/L Potassium 3.5 (3.5-5.1) mEq/L Chloride 100 (98-107) mEq/L Carbon Dioxide 23 (23-29) mEq/L BUN 12 (6-20) mg/dL Creatinine 0.61 (0.60-1.20) mg/dL Est GFR ( Amer) > 60 (> 60) Est GFR (Non-Af Amer) > 60 (> 60) BUN/Creatinine Ratio 20 (6-26) Glucose 173 H (70-105) mg/dL POC Glucose (70-99) mg/dL Calculated Osmolality 286 (280-300) Calcium 9.7 (8.6-10.3) mg/dL Troponin I < 0.03 (< 0.04) ng/mL C-Reactive Protein 16 H (Less than 10) mg/L 06/17/19 06/17/19 Range/Units 16:25 16:54 WBC (4.3-11.1) K/mcL RBC (3.82-4.97) M/mcL Hgb (11.5-15.4) g/dL Hct (35.3-44.9) % MCV (83.0-100.0) fL MCH (28.0-33.3) pg MCHC (31.6-35.5) g/dL RDW (11.5-14.5) % Plt Count (140-400) K/mcL MPV (9.4-12.4) fL ESR 23 H (0-15) mm/hr PT (9.4-12.1) Seconds INR APTT (26.0-36.0) Seconds Sodium (136-145) mEq/L Potassium (3.5-5.1) mEq/L Chloride (98-107) mEq/L Carbon Dioxide (23-29) mEq/L BUN (6-20) mg/dL Creatinine (0.60-1.20) mg/dL Est GFR ( Amer) (> 60) Est GFR (Non-Af Amer) (> 60) BUN/Creatinine Ratio (6-26) Glucose (70-105) mg/dL POC Glucose 143 H (70-99) mg/dL Calculated Osmolality (280-300) Calcium (8.6-10.3) mg/dL Troponin I (< 0.04) ng/mL C-Reactive Protein (Less than 10) mg/L
[2019-06-17] MEDS ORDERED: Ketorolac 15 MG/ML VIAL IVP ONE (18:35)
[2019-06-17 19:48] LABS: C-Reactive Protein 16 mg/L (Less than 10)
--- NOTE | 2019-06-17 20:54 | Internal Med History&Physical ---
<Ale Cam L - Last Filed: 06/18/19 06:53> Date of Encounter: 06/18/19 Time of Encounter: 21:30 Internal Medicine - H&P: HPI Chief complaint: transient mono-ocular vision loss Admitted From: Home History of present illness: Ms. Anne is a 49 year old female with phmx of a-fib on Eliquis, HTN, HLD, who presented to day after an episode of transient mono-ocular vision vision loss. Patient states around 1 PM today while at work her right eye became blurry. She states she blinked a few times became even more blurry and eventually she could not see through that right eye. Patient stated she walked to her bosses office sat down for a few minutes, called her PCP who then stated to come to the ED. During her time at work patient states her boss did not observe any abnormal gait. Patient states her vision was distorted for about one hour. Patient states an episode like this occurred 2 years ago but lasted only 15 minutes. Patient recently saw the eye doctor 6 months ago. Patient currently does not wear glasses or contacts, only reading glasses. During patient's episode patient admits to aching chest pain, throbbing unilateral headache, and nausea. On exam patient states the chest pain has resolved althou gh the headache remains. Patient denies numbness or tingling in extremities, dizziness, or falling during current episode. Patient does admit to recent fall within the past 2 weeks, but states she did not hit her head. Past Med Surg Social Fam HX - Past Medical History Medical history: arthritis, atrial fibrillation, diabetes, fibromyalgia, GERD, hyperlipidemia, hypertension, thyroid disease, other (Obstructive sleep apnea on CPAP. ) Additional medical history: diveriticulosis Psychiatric history: anxiety, depression, PTSD, previous psychiatric hospitalization - Past Surgical History Surgical History: appendectomy, cholecystectomy, hysterectomy Additional surgical history: achilles repair bilateral. 4/2 injection into right knee for arthritis - first injection - Social History Smoking Status: Never smoker Smokeless Tobacco Status: No Alcohol use: none Drug use: none - Family History Father Family Member Ethnicity: Non- Living Status: Hx Family Cardiac Disorders: Yes Hx Family Respiratory Disorders: Yes Hx Family Cancer: No Hx Family GI Disorders: Yes Hx Family Endocrine Disorder: No Hx Family Neuromuscular Disorders: Yes (Uncle) Hx Family Neurologic Disorders: No Hx Family HEENT Disorders: No Hx Family Autoimmune Disorders: No Mother Family Member Ethnicity: Non- Living Status: Still Living Hx Family Cardiac Disorders: Yes Hx Family Respiratory Disorders: Yes Hx Family Cancer: No Hx Family GI Disorders: Yes Hx Family Endocrine Disorder: No Hx Family Neuromuscular Disorders: No Hx Family Neurologic Disorders: Yes (Brother MS) Hx Family HEENT Disorders: No Hx Family Autoimmune Disorders: No Internal Medicine - H&P: Meds Escitalopram [Lexapro] 20 mg PO DAILY 02/17/18 [History] Estradiol [Estrace] 1 mg PO DAILY 02/17/18 [History] LORazepam [Ativan] 0.5 mg PO BID PRN 02/17/18 [History] Levothyroxine Sodium [Levoxyl] 175 mcg PO QAM 02/17/18 [History] Losartan [Cozaar] 25 mg PO DAILY 02/17/18 [History] Ondansetron ODT [Zofran ODT] 4 mg SL Q6HR PRN #14 tab.rapdis 09/13/18 [Rx] Ezetimibe [Zetia] 10 mg PO DAILY 01/22/19 [History] Gabapentin [Neurontin] 300 mg PO HS 01/22/19 [History] Metformin HCl [Metformin ER Gastric] 500 mg PO BID 01/22/19 [History] Sucralfate [Carafate] 1 gm PO QIDAC PRN 01/22/19 [History] Cholecalciferol (Vitamin D3) [Vitamin D3] 2,000 unit PO DAILY 01/23/19 [History] Apixaban [Eliquis] 5 mg PO BID 06/17/19 [History] Diltiazem CD (24hr) [Cardizem CD] 180 mg PO DAILY 06/17/19 [History] Ferrous Sulfate [Iron] 325 mg PO DAILY 06/17/19 [History] Metoprolol [Lopressor] 50 mg PO BID 06/17/19 [History] Pantoprazole Sodium [Protonix] 40 mg PO DAILY 06/17/19 [History] Allergy/AdvReac Type Severity Reaction Status Date / Time amitriptyline Allergy Hives Verified 06/17/19 19:29 clarithromycin [From Biaxin] AdvReac Intermediate Vomiting Verified 06/17/19 19:29 oxycodone [From Percocet] AdvReac Vomiting Verified 06/17/19 19:29 risperidone [From Risperdal] AdvReac Hypertensio Verified 06/17/19 19:29 n Biaxin AdvReac Severe Vomiting Uncoded 06/17/19 19:29 All Systems PM: A 10-system review of systems was performed and is negative for pertinent findings except as documented above in the HPI. Review of systems: Constitutional: Denies Fever, Chills, Dizziness Respiratory: Denies Shortness of breath, Chronic cough, hemoptysis, Dyspnea at rest, or activity Cardiovascular: Denies Syncope, Peripheral edema , palpitations Gastrointestinal: Denies hematochezia,, vomiting Genitourinary: Denies Painful urination, hematuria, urinary retention Endocrine: denies unintentional Significant weight changes Skin: Denies rashes, or unexplained bruising - Constitutional Constitutional: fatigue, falls - EENT Eyes: as per HPI Nose, mouth and throat: no dysphagia, no nasal discharge, no neck pain, no sore throat - Cardiovascular Cardiovascular ROS IM: chest pain, no diaphoresis, no dyspnea, no lightheadedness, no palpitations, no syncope - Respiratory Respiratory: no cough, no dyspnea, no wheezing, no excessive phlegm production - Gastrointestinal Gastrointestinal: nausea, no abdominal pain, no diarrhea, no hematemesis, no hematochezia, no melena, no vomiting - Genitourinary Genitourinary: no change in urinary stream, no dysuria, no flank pain, no hematuria - Constitutional Vitals: Temp Pulse Resp BP Pulse Ox 98.6 F 74 20 116/48 92 06/17/19 16:13 06/17/19 19:36 06/17/19 19:36 06/17/19 19:36 06/17/19 19:36 Exam: Gen: alert/oriented, no acute distress. Head: atraumatic, normocephalic. ENT: no oropharyngeal erythema, EOMI, PERRL, mucous membranes moist, Neck: No thyromegaly appreciated. Neck supple no cervical lymphadenopathy. Resp: CTAB, no wheezing, rhonchi, or rhales. CV: RRR, Normal S1 and S2. No murmur, gallops, or rubs. GI/Abdominal exam: bowel sounds throughout, soft, non-tender, non-distended; no hepatosplenomegaly Skin: intact; no rashes, lesions, or bruising. Ext: No cyanosis or edema. pulses +2/4 bilaterally UE and LE. Neuro: no focal deficits, cooperative with exam, moves all extremities equally, DTR +2/4 UE and LE b/l , CNII-XII intact. strength 5/5 in UE and LE b/l, sensation intact. Internal Med - H&P Results - Labs CBC & Chem 7: 06/18/19 03:28 06/18/19 03:28 Labs: Short CBC 06/17/19 Range/Units 16:25 WBC 10.0 (4.3-11.1) K/mcL Hgb 11.1 L (11.5-15.4) g/dL Hct 32.9 L (35.3-44.9) % Plt Count 414 H (140-400) K/mcL BMP 06/17/19 16:25 Sodium 136 Potassium 3.5 Chloride 100 Carbon Dioxide 23 BUN 12 Creatinine 0.61 Glucose 173 H Calcium 9.7 Cardiac Enzymes 06/17/19 Range/Units 16:25 Troponin I < 0.03 (< 0.04) ng/mL - Impressions ITS Impressions Angiography CT 06/17/19 17:07 IMPRESSION: No CT evidence of acute intracranial abnormalities. No high-grade stenosis or focal occlusion involving the intracranial or cervical vasculature. No evidence of acute dissection. No evidence of aneurysm. D/ / 06/17/2019 18:17:34 Ronan Hernandez MD / juanjose Interpreting Provider: Ronan Hernandez MD Neck CTA 06/17/19 17:07 IMPRESSION: No CT evidence of acute intracranial abnormalities. No high-grade stenosis or focal occlusion involving the intracranial or cervical vasculature. No evidence of acute dissection. No evidence of aneurysm. D/ / 06/17/2019 18:17:34 Ronan Hernandez MD / juanjose Interpreting Provider: Ronan Hernandez MD - Assessment and Plan (1) Amaurosis fugax Current Visit: Yes Status: Acute Assessment and plan: Patient was admitted for transient monocular vision loss lasting one hour. On arrival in ED patient had CT angiogram of the head and neck which showed no acute intracranial abnormalities. CBC and BMP and cardiac enzymes were drawn. ESR was elevated at 23. CRP was also elevated at 16. Possibilities include TIA, migraine, ACS, giant cell arteritis, retinal vein occlusion, papilledema. PLan: - As patient is over the age of 50, presented with temporal migraines, and increased ESR we have started patient on high-dose steroids. - We will obtain an MRI in the morning. - Neuro checks every 4. - Telemetry - Limited echo. - CBC without differential in the morning. - BMP - repeat cardiac enzymes if initial enzymes are elevated. (2) Chest pain Current Visit: Yes Status: Acute Assessment and plan: plan: - Repeat EKG. - Limited echo. - Telemetry. Qualifiers: Chest pain type: unspecified Qualified Code(s): R07.9 - Chest pain, unspecified (3) Anxiety and depression Current Visit: Yes Status: Chronic Assessment and plan: Continue home medication Ativan 1 mg and Lexapro 20 mg (4) Diabetes mellitus type 2 in obese Current Visit: Yes Status: Chronic Assessment and plan: Hold metformin. - Start sliding scale insulin before meals and bedtime. - Accu-Cheks before meals and bedtime. (5) Essential hypertension Current Visit: Yes Status: Chronic Assessment and plan: continue antihypertensive medications (6) Hypothyroidism Current Visit: Yes Status: Chronic Assessment and plan: continue synthroid Qualifiers: Hypothyroidism type: unspecified Qualified Code(s): E03.9 - Hypothyroidism, unspecified (7) DVT prophylaxis Current Visit: Yes Status: Acute Assessment and plan: Continue eliquis - Time Spent With Patient Total time spent is greater than 50% in coordination of care (as documented) at patient's floor/unit and/or counseling patient: <Alexander Posey - Last Filed: 06/18/19 07:18> Date of Encounter: 06/17/19 Internal Medicine - H&P: HPI History of present illness: Ms. Anne is a 49 year old female All Systems PM: A 10-system review of systems was performed and is negative for pertinent findings except as documented above in the HPI. - Constitutional Vitals: Temp Pulse Resp BP Pulse Ox 98.6 F 90 17 96/50 96 06/18/19 03:59 06/18/19 03:59 06/18/19 03:59 06/18/19 03:59 06/18/19 03:59 Internal Med - H&P Results - Labs CBC & Chem 7: 06/18/19 03:28 06/18/19 03:28 Labs: Short CBC 06/17/19 06/18/19 Range/Units 16:25 03:28 WBC 10.0 9.4 (4.3-11.1) K/mcL Hgb 11.1 L 11.4 L (11.5-15.4) g/dL Hct 32.9 L 34.6 L (35.3-44.9) % Plt Count 414 H 402 H (140-400) K/mcL Neutrophils # 7.4 (1.6-8.9) K/mcL BMP 06/17/19 06/18/19 16:25 03:28 Sodium 136 139 Potassium 3.5 3.7 Chloride 100 102 Carbon Dioxide 23 24 BUN 12 15 Creatinine 0.61 0.66 Glucose 173 H 146 H Calcium 9.7 9.5 Cardiac Enzymes 06/17/19 Range/Units 16:25 Troponin I < 0.03 (< 0.04) ng/mL Liver Function 06/18/19 Range/Units 03:28 Total Bilirubin 0.4 (0.3-1.0) mg/dL AST 11 L (13-39) Units/L ALT 11 (7-52) Units/L Alkaline Phosphatase 57 (34-104) Units/L Albumin 4.2 (3.5-5.7) g/dL - Impressions ITS Impressions Angiography CT 06/17/19 17:07 IMPRESSION: No CT evidence of acute intracranial abnormalities. No high-grade stenosis or focal occlusion involving the intracranial or cervical vasculature. No evidence of acute dissection. No evidence of aneurysm. D/ / 06/17/2019 18:17:34 Ronan Hernandez MD / juanjose Interpreting Provider: Ronan Hernandez MD Neck CTA 06/17/19 17:07 IMPRESSION: No CT evidence of acute intracranial abnormalities. No high-grade stenosis or focal occlusion involving the intracranial or cervical vasculature. No evidence of acute dissection. No evidence of aneurysm. D/ / 06/17/2019 18:17:34 Ronan Hernandez MD / juanjose Interpreting Provider: Ronan Hernandez MD - Time Spent With Patient Total time spent is greater than 50% in coordination of care (as documented) at patient's floor/unit and/or counseling patient: - Attending Attestation I performed a history and physical examination of the patient and discussed their management with the resident. I reviewed the resident's note and agree with the documented plan of care. In short patient is a 49-year-old female with a past medical history of atrial fibrillation on Eliquis and hypertension who presented to the ED after one episode of transient blurring of vision of the right eye which began earlier this afternoon around 1 PM followed by bitemporal headache. No reports of ocular pain. ED [id number] bedside ocular ultrasound was performed with reports of no vitreous hemorrhage or retinal detachment. Symptoms gradually began to improve shortly after arrival to the ED. CTA of the head and neck showed no evidence of stenosis/dissection or acute intracranial abnormalities. Aside from mild tightness and tingling under the right eyelid, no other reported neurological deficits. Laboratory workup and EKG was relatively unremarkable. ESR mildly elevated at 23. On my assessment, patient was sitting up in bed in no acute distress. Reporting near complete re solution of blurriness in the right eye. Neurologic exam was unremarkable. Some mild temporal tenderness to palpation. Upon further questioning patient did not endorse a family history of multiple sclerosis in her brother whose flares typically involve vision loss. Patient also endorses recent r heumatological evaluation for generalized aches and pains and was given a diagnosis of fibromyalgia.. No reports of jaw claudication. Differential diagnosis at this point includes migraine with aura, TIA, giant cell arthritis, multiple sclerosis, retinal artery thromboembolism among others. Case was discussed with neurology and based on symptom presentation felt this more to be in line with a migraine with aura as opposed to giant cell arteritis given her low level of ESR. Nonetheless, will give one-time dose of 500 mg Solu-Medrol. We will obtain MRI for further evaluation of MS versus CVA/TIA. Echocardiogram. Neurology consult.
[2019-06-17] MEDS ORDERED: Naloxone 0.4 MG/ML INJ IVP PRN (22:48)
[2019-06-18] MEDS: Apixaban 5 MG TABLET PO SCH ×2 (00:03→09:04)
[2019-06-18] MEDS ORDERED: methylPREDNISolone 125 MG/2 ML VIAL IVP ONE ×2 (00:21→01:15)
[2019-06-18] MEDS ORDERED: *HR* LORazepam 1 MG TABLET PO PRN (01:54)
[2019-06-18] MEDS ORDERED: Ondansetron ODT 4 MG TAB.RAPDIS SL PRN (01:54)
[2019-06-18] MEDS ORDERED: Sucralfate 1 GM TABLET PO PRN (01:54)
[2019-06-18 04:06] LABS: Basophils # 0.1 K/mcL (0.0-0.2); Basophils % 0.6 %; Eosinophils # 0.1 K/mcL (0.0-0.6); Eosinophils % 1.3 %; Hematocrit 34.6 % (35.3-44.9); Hemoglobin 11.4 g/dL (11.5-15.4); Immature Granulocytes % 0.5 % (0-4); Lymphocytes # 1.5 K/mcL (0.6-4.6); Lymphocytes % 15.9 %; Mean Corpuscular HGB Conc 32.9 g/dL (31.6-35.5); Mean Platelet Volume 8.9 fL (9.4-12.4); Monocytes # 0.3 K/mcL (0.0-1.3); Monocytes % 2.9 %; Neutrophils # 7.4 K/mcL (1.6-8.9); Platelet Count 402 K/mcL (140-400); Red Blood Count 3.93 M/mcL (3.82-4.97); Red Cell Distribution Width 12.4 % (11.5-14.5); Segmented Neutrophils % 78.8 %; White Blood Count 9.4 K/mcL (4.3-11.1)
[2019-06-18 04:28] LABS: Alanine Aminotransferase 11 Units/L (7-52); Albumin 4.2 g/dL (3.5-5.7); Albumin/Globulin Ratio 1.5 (1.1-2.2); Alkaline Phosphatase 57 Units/L (34-104); Aspartate Amino Transferase 11 Units/L (13-39); BUN/Creatinine Ratio 23 (6-26); Bilirubin,Total 0.4 mg/dL (0.3-1.0); Blood Urea Nitrogen 15 mg/dL (6-20); Calcium 9.5 mg/dL (8.6-10.3); Carbon Dioxide 24 mEq/L (23-29); Chloride 102 mEq/L (98-107); Globulin 2.8 g/dL (2.4-3.5); Glucose 146 mg/dL (70-105); Magnesium 1.9 mg/dL (1.6-2.6); Osmolality,Calculated 291 (280-300); Potassium 3.7 mEq/L (3.5-5.1); Sodium 139 mEq/L (136-145); eGFR For African Americans > 60 (> 60); eGFR For Non-African Americans > 60 (> 60)
[2019-06-18] MEDS ORDERED: Apixaban 5 MG TABLET PO SCH (09:00)
[2019-06-18] MEDS ORDERED: (Ezetimibe [Zetia] 10 MG) PO SCH (09:00)
[2019-06-18] MEDS ORDERED: Diltiazem CD (24hr) 180 MG CAPSULE PO SCH (09:00)
[2019-06-18] MEDS ORDERED: Cholecalciferol (D-3) 1,000 UNIT (25MCG) TABLET PO SCH (09:00)
[2019-06-18 09:40] LABS: Estimated Average Glucose 120 mg/dl
[2019-06-18] MEDS ORDERED: *HR* HYDROcodone/Acet 5/325 mg TABLET PO PRN (10:15)
--- NOTE | 2019-06-18 10:59 | Neurology - Consult Note ---
Date of Encounter: 06/18/19 Time of Encounter: 10:47 History of Present Illness Chief complaint: HUSTON, vision changes HPI: Ms. Anne is a 49 year old female with past medical history of atrial fibrillation, hypertension, hyperlipidemia, fibromyalgia, "thyroid problems" who presents the emergency department with complaint of headache and vision changes. Patient states that she was at work yesterday when she began to feel sudden onset bilateral frontal headache. Patient states that she does get occasional headaches but is usually not this bad. She also admits to associated vision changes in her right eye and describes them as "squiggles". She does describe previous episodes of floaters but states this feels different and is more located in the periphery. She denies any symptoms of fevers, chills, recent illness but does state that she has felt worn down over the last couple weeks which has prompted her rheumatology workup. She is not having any focal n umbness, tingling, weakness as well as no dysphagia, odynophagia. In the emergency room, vital signs were within normal limits. Laboratory results were grossly unremarkable and inflammatory markers showed an ESR of 23 and CRP of 16. CTA of the head and neck was performed which showed no signific ant stenotic lesions. MRI was also ordered which shows no acute process. Patient was given 500 mg Solu-Medrol bolus due to concerns for possible giant cell arteritis given her tenderness to palpation in the temporal region as well as vision changes. At time of my interview, patient states that her headache has improved. It is still present but not as severe as on admission. She is no longer feeling nauseous and her vision complaints have resolved. PMHx as above PSHx: appendectomy, cholecystectomy, hysterectomy Social hx: denies tobacco, alcohol, drug use Fhx: brother with MS Past Med Surg Social Fam HX - Past Medical History Medical history: arthritis, atrial fibrillation, diabetes, fibromyalgia, GERD, hyperlipidemia, hypertension, thyroid disease, other (Obstructive sleep apnea on CPAP. ) Additional medical history: diveriticulosis Psychiatric history: anxiety, depression, PTSD, previous psychiatric hospitalization - Past Surgical History Surgical History: appendectomy, cholecystectomy, hysterectomy Additional surgical history: achilles repair bilateral. 4/2 injection into right knee for arthritis - first injection - Social History Smoking Status: Never smoker Smokeless Tobacco Status: No Alcohol use: none Drug use: none - Family History Father Family Member Ethnicity: Non- Living Status: Hx Family Cardiac Disorders: Yes Hx Family Respiratory Disorders: Yes Hx Family Cancer: No Hx Family GI Disorders: Yes Hx Family Endocrine Disorder: No Hx Family Neuromuscular Disorders: Yes (Uncle) Hx Family Neurologic Disorders: No Hx Family HEENT Disorders: No Hx Family Autoimmune Disorders: No Mother Family Member Ethnicity: Non- Living Status: Still Living Hx Family Cardiac Disorders: Yes Hx Family Respiratory Disorders: Yes Hx Family Cancer: No Hx Family GI Disorders: Yes Hx Family Endocrine Disorder: No Hx Family Neuromuscular Disorders: No Hx Family Neurologic Disorders: Yes (Brother MS) Hx Family HEENT Disorders: No Hx Family Autoimmune Disorders: No Medications and Allergies Escitalopram [Lexapro] 20 mg PO DAILY 02/17/18 [History] Estradiol [Estrace] 1 mg PO DAILY 02/17/18 [History] LORazepam [Ativan] 0.5 mg PO BID PRN 02/17/18 [History] Levothyroxine Sodium [Levoxyl] 175 mcg PO QAM 02/17/18 [History] Losartan [Cozaar] 25 mg PO DAILY 02/17/18 [History] Ondansetron ODT [Zofran ODT] 4 mg SL Q6HR PRN #14 tab.rapdis 09/13/18 [Rx] Ezetimibe [Zetia] 10 mg PO DAILY 01/22/19 [History] Gabapentin [Neurontin] 300 mg PO HS 01/22/19 [History] Metformin HCl [Metformin ER Gastric] 500 mg PO BID 01/22/19 [History] Sucralfate [Carafate] 1 gm PO QIDAC PRN 01/22/19 [History] Cholecalciferol (Vitamin D3) [Vitamin D3] 2,000 unit PO DAILY 01/23/19 [History] Apixaban [Eliquis] 5 mg PO BID 06/17/19 [History] Diltiazem CD (24hr) [Cardizem CD] 180 mg PO DAILY 06/17/19 [History] Ferrous Sulfate [Iron] 325 mg PO DAILY 06/17/19 [History] Metoprolol [Lopressor] 50 mg PO BID 06/17/19 [History] Pantoprazole Sodium [Protonix] 40 mg PO DAILY 06/17/19 [History] Allergy/AdvReac Type Severity Reaction Status Date / Time amitriptyline Allergy Hives Verified 06/17/19 19:29 clarithromycin [From Biaxin] AdvReac Intermediate Vomiting Verified 06/17/19 19:29 oxycodone [From Percocet] AdvReac Vomiting Verified 06/17/19 19:29 risperidone [From Risperdal] AdvReac Hypertensio Verified 06/17/19 19:29 n Biaxin AdvReac Severe Vomiting Uncoded 06/17/19 19:29 All Systems: The remainder of the systems were reviewed and are negative Review of Systems: - Constitutional: Admits to fatigue, myalgias. Denies fevers, chills, weight los s - Head/Neck: Admits to HUSTON. Denies neck stiffness - EENT: Admits to vision changes, tinnitus. Denies auditory changes, rhinorrhea, congestion, sore throat, odynaphagia - CVS: Denies chest pain, palpitations, HUTCHINSON, orthopnea, edema, - Pulm: Denies SOB, cough, sputum, wheezing - GI: Denies admit to nausea. denies abdominal pain, anorexia, vomiting, diarrhea, constipation, melena - : Denies dysuria, increased frequency, urgency, hematuria, - MSK: admits to chronic joint pain, denies limited ROM - Skin: Denies rashes, ulcers, color changes, - Neuro: Denies paresthesias, focal deficits, ataxia, Physical Examination - Vital Signs Vital Signs: Initial Vital Signs Temp Pulse Resp BP Pulse Ox 98.6 F 78 18 135/61 97 06/17/19 16:13 06/17/19 16:13 06/17/19 16:13 06/17/19 16:13 06/17/19 16:13 - Constitutional General appearance: comfortable - Neurologic Sensorimotor examination: intact Detailed motor examination: grossly full strength in all extremities Motor examination - right side: 5/5: deltoids, biceps, triceps, paralegal secretary, hip flexors, tibialis Anterior, quadriceps, toe extension (EHL), plantarflexion Motor examination - left side: 5/5: deltoids, biceps, triceps, hip flexors, paralegal secretary, quadriceps, tibialis Anterior, toe extension (EHL), plantarflexion Detailed sensory examination: intact Reflexes: Biceps: 2+, Brachioradialis: 3+, Patella: 2+ Mental Status Examination: awake, alert, oriented to person, oriented to place, oriented to time, follows commands appropriately, answers questions appropriately, no agnosia, no aphasia, no aproxia Cranial nerve examination: PERRL, EOMI, visual yates intact, sensory to face intact, mastication intact, no facial asymmetry is present, no dysarthria, hearing is intact symmetrically, soft palate elevates bilaterally upon phonation, flexes SCM and trapezius muscles symmetrically with full power, tongue protrudes midline, no atrophy or facial fasiculations present Cerebellar examination: no dysmetria, performs finger to nose and heel to barney symmetrically without ataxia Results - Laboratory Findings CBC and BMP: 06/18/19 03:28 06/18/19 03:28 Abnormal lab findings: Abnormal lab results Hgb 11.4 g/dL (11.5-15.4) L 06/18/19 03:28 Hct 34.6 % (35.3-44.9) L 06/18/19 03:28 Plt Count 402 K/mcL (140-400) H 06/18/19 03:28 MPV 8.9 fL (9.4-12.4) L 06/18/19 03:28 ESR 23 mm/hr (0-15) H 06/17/19 16:25 Glucose 146 mg/dL (70-105) H 06/18/19 03:28 POC Glucose 109 mg/dL (70-99) H 06/17/19 20:55 Hemoglobin A1c 5.8 % (-5.6) H 06/18/19 03:28 AST 11 Units/L (13-39) L 06/18/19 03:28 C-Reactive Protein 16 mg/L (Less than 10) H 06/17/19 16:25 Consult Discharge Plan - Plan Referrals: Liana Torres, SYSTEM ADMIN [Primary Care Provider] -
[2019-06-18 11:24] VITALS: BP 126/70
--- NOTE | 2019-06-18 13:43 | Discharge Summary ---
- NOTES TO OUTPATIENT PROVIDER Notes to Outpatient Provider: f/u with PCP in one week. f/u with Neurology in 1-2 weeks. Date of Encounter: 06/18/19 Time of Encounter: 13:40 - Discharge Diagnosis (1) Amaurosis fugax Priority: Primary Status: Acute (2) Headache Priority: Primary Status: Acute Qualifiers: Headache type: unspecified Headache chronicity pattern: unspecified pattern Intractability: not intractable Qualified Code(s): R51 - Headache (3) Paroxysmal A-fib Priority: Secondary Status: Chronic (4) Anxiety and depression Priority: Secondary Status: Chronic (5) Diabetes mellitus type 2 in obese Priority: Secondary Status: Chronic (6) Essential hypertension Priority: Secondary Status: Chronic (7) Hypothyroidism Priority: Secondary Status: Chronic Qualifiers: Hypothyroidism type: unspecified Qualified Code(s): E03.9 - Hypothyroidism, unspecified Hospital course: Ms. Anne is a 49 year old female with phmx of paroxysmal a-fib on Eliquis, HTN, HLD and DM2 pt presented to ER with day after an episode of transient mono- ocular vision loss. Patient states around 1 PM y/d while at work her right eye became blurry. She states she blinked a few times became even more blurry and eventually she could not see through that right eye. She also have b/l temporal headache. She was admitted in the hospital and placed her on nurse monitoring. She had CT of Head which did not show acute abnormalities. She did have MRI of Brain which did not show any infarction. Her vision problem and temporal headaches seems to be due to complex migraine HAs. Pt was evaluated by Neurology, who did not recommend any further interventions now. Will d/c her home in stable condition today. - Time Spent with Patient Total time spent providing and/or coordinating discharge services: - Discharge Medications Prescriptions: New HYDROcodone/Acet 5/325 mg [[place] 5-325 mg] 1 tab PO Q8HR PRN 4 Days #10 tablet PRN Reason: Pain Continued Losartan [Cozaar] 25 mg PO DAILY Escitalopram [Lexapro] 20 mg PO DAILY Estradiol [Estrace] 1 mg PO DAILY LORazepam [Ativan] 0.5 mg PO BID PRN PRN Reason: Anxiety Levothyroxine Sodium [Levoxyl] 175 mcg PO QAM Ondansetron ODT [Zofran ODT] 4 mg SL Q6HR PRN #14 tab.rapdis PRN Reason: Nausea And Vomiting Gabapentin [Neurontin] 300 mg PO HS Metformin HCl [Metformin ER Gastric] 500 mg PO BID Ezetimibe [Zetia] 10 mg PO DAILY Sucralfate [Carafate] 1 gm PO QIDAC PRN PRN Reason: acid reflux Cholecalciferol (Vitamin D3) [Vitamin D3] 2,000 unit PO DAILY Diltiazem CD (24hr) [Cardizem CD] 180 mg PO DAILY Metoprolol [Lopressor] 50 mg PO BID Pantoprazole Sodium [Protonix] 40 mg PO DAILY Apixaban [Eliquis] 5 mg PO BID Ferrous Sulfate [Iron] 325 mg PO DAILY Home Medications: Escitalopram [Lexapro] 20 mg PO DAILY 02/17/18 [History] Estradiol [Estrace] 1 mg PO DAILY 02/17/18 [History] LORazepam [Ativan] 0.5 mg PO BID PRN 02/17/18 [History] Levothyroxine Sodium [Levoxyl] 175 mcg PO QAM 02/17/18 [History] Losartan [Cozaar] 25 mg PO DAILY 02/17/18 [History] Ondansetron ODT [Zofran ODT] 4 mg SL Q6HR PRN #14 tab.rapdis 09/13/18 [Rx] Ezetimibe [Zetia] 10 mg PO DAILY 01/22/19 [History] Gabapentin [Neurontin] 300 mg PO HS 01/22/19 [History] Metformin HCl [Metformin ER Gastric] 500 mg PO BID 01/22/19 [History] Sucralfate [Carafate] 1 gm PO QIDAC PRN 01/22/19 [History] Cholecalciferol (Vitamin D3) [Vitamin D3] 2,000 unit PO DAILY 01/23/19 [History] Apixaban [Eliquis] 5 mg PO BID 06/17/19 [History] Diltiazem CD (24hr) [Cardizem CD] 180 mg PO DAILY 06/17/19 [History] Ferrous Sulfate [Iron] 325 mg PO DAILY 06/17/19 [History] Metoprolol [Lopressor] 50 mg PO BID 06/17/19 [History] Pantoprazole Sodium [Protonix] 40 mg PO DAILY 06/17/19 [History] HYDROcodone/Acet 5/325 mg [[place] 5-325 mg] 1 tab PO Q8HR PRN 4 Days #10 tablet 06/18/19 [Rx] Allergies/Adverse Reactions: Allergy/AdvReac Type Severity Reaction Status Date / Time amitriptyline Allergy Hives Verified 06/17/19 19:29 clarithromycin [From Biaxin] AdvReac Intermediate Vomiting Verified 06/17/19 19:29 oxycodone [From Percocet] AdvReac Vomiting Verified 06/17/19 19:29 risperidone [From Risperdal] AdvReac Hypertensio Verified 06/17/19 19:29 n Biaxin AdvReac Severe Vomiting Uncoded 06/17/19 19:29 Date of admission: 06/17/19 19:28 Primary care physician: Liana Torres CNP Consults: 06/18/19 07:15 Consult to Neurology [CONS] Routine Consulting Provider: Neurology [facility] Reason for Consult: Transient monocular vision loss concerning for TIA versus migraine versus multiple sclerosis versus giant cell arteritis Call Completed: Yes - Constitutional Vitals: Temp Pulse Resp BP Pulse Ox 98.5 F 89 16 126/70 94 06/18/19 11:23 06/18/19 11:23 06/18/19 11:23 06/18/19 11:23 06/18/19 11:23 General appearance: Present: cooperative, A&O X 3, no acute distress, answers questions appropriately Exam: a - Head Head exam: Present: atraumatic, normal inspection - Neck Neck exam general surgery: Present: supple - Respiratory Respiratory exam: Present: decreased breath sounds. Absent: rales, respiratory distress, rhonchi, wheezes - Cardiovascular Cardiovascular exam: Present: RRR, +S1, +S2. Absent: tachycardia - GI/Abdominal GI/Abdominal exam: Present: normal bowel sounds, soft. Absent: rebound, rigid, tenderness - Extremities Exam Extremities exam: Present: normal inspection. Absent: calf tenderness, tenderness - Back Exam Back exam: Absent: CVA tenderness (L), CVA tenderness (R) - Neurological Exam Neurological exam: Present: alert, CN II-XII intact, oriented X3, no focal deficits, strengths equal and symetr throughout. Absent: motor sensory deficit, pronater drift, facial droop, speech deficit - Psychiatric Psychiatric exam: Present: normal affect, normal mood - Patient Status Disposition: Home, Self-Care Condition: Good Overall status at discharge: patient is back to baseline - Discharge Instructions Follow Up With: Liana Torres CNP [Primary Care Provider] - Cora Yanes MD [Partnered Physician] - - Diet and Activity Activity: increase activity as tolerated Diet: low salt diet
[2019-06-18] MEDS ORDERED: Gabapentin 300 MG CAPSULE PO SCH (21:00)
--- NOTE | 2019-06-21 00:03 | Electrocardiograph Report ---
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
== END 2019-06-18 16:11 | disposition home or self-care (01) ==
LOC: EMEROOARM 16:01 → 2ANU 16:01 → 3BNU 19:30
PROVIDERS: ADMIT Internal Medicine; ATTEND Internal Medicine

== ENCOUNTER 2019-07-10 20:39 | Inpatient (IN) ==
[2019-07-10] MEDS ORDERED: Nitroglycerin 0.4 MG TAB.SUBL SL PRN (21:43)
[2019-07-10] MEDS ORDERED: Aspirin 81 MG TAB.CHEW PO ONE (21:43)
--- NOTE | 2019-07-10 21:50 | Emergency Department Note ---
Disposition Clinical Impression: Palpitation Chest pain Qualifiers: Chest pain type: unspecified Qualified Code(s): R07.9 - Chest pain, unspecified Disposition: Admitted As Inpatient Condition: Fair Time of Disposition: 03:57 Chest Pain HPI - General Chief Complaint: ED Chest Pain Stated Complaint: chest pain/palpitations Time Seen by Provider: 07/10/19 21:30 Source: family Limitations: no limitations Vital Signs Reviewed: Yes Nursing Notes Reviewed: Yes - History of Present Illness HPI Narrative: 49-year-old female with a history of atrial fibrillation, hypertension, high cholesterol, diabetes type 2 currently taken L plus and metformin along with hydrochlorothiazide presents emergency murmur today with 2 weeks of palpitations with intermittent chest pain especially over the last 2 days increasing the last 12 hours. Patient states that she feels better lying down exertional activities seem to increase the discomfort. She denies any reproducible type chest pain however with palpation there is some pressure sensation. Patient denies any recent long distance travel or car rides. No recent injuries at work. Patient states that she was having more pain today while at work but they were short staffed so she continued hoping that when she got home it would improve. However, she states it did not. Her atrial fibrillation/office rn informed her that if she is having pain in the persisted she should come to the emergency department to be evaluated. She states today the pain occasionally radiating up into her neck. Patient denies any radiation down her arm or through to her back. She denies any nausea, vomiting, diarrhea. Denies any history of myocardial infarction. She has had a stress test in the past. She denies any history of heart catheterization. H fibrillation was diagnosed in January 2019. She has been taking Eliquis. Patient has a history of esophagitis and gastritis and had an EGD approximately 4 weeks prior. She currently takes omeprazole and there was no change in pharmacological management at that time. Pt complaint: chest pain Duration: constant (Pressure), intermittent (Pain radiating to neck) Onset: during exertion (Worse with exertion) Pain Location: substernal Severity: moderate Severity scale (1-10): 5 Quality: tightness, heaviness, sharp (Occasionally sharp with deep breath) Pain Radiation: neck (Intermittently) Associated symptoms: Reports: dyspnea, palpitations (She states her heart rate was never over the mid 90s today.). Denies: nausea, vomiting, diaphoresis, sense of impending doom, syncope, fever, cough - Related Data Home Medications Medication Instructions Recorded Confirmed Escitalopram [Lexapro] 20 mg PO DAILY 02/17/18 07/10/19 Estradiol [Estrace] 1 mg PO DAILY 02/17/18 07/10/19 LORazepam [Ativan] 0.5 mg PO BID PRN 02/17/18 07/10/19 Levothyroxine Sodium [Levoxyl] 175 mcg PO QAM 02/17/18 07/10/19 Ezetimibe [Zetia] 10 mg PO DAILY 01/22/19 07/10/19 Gabapentin [Neurontin] 300 mg PO HS 01/22/19 07/10/19 Metformin HCl [Metformin ER 500 mg PO BID 01/22/19 07/10/19 Gastric] Cholecalciferol (Vitamin D3) 2,000 unit PO DAILY 01/23/19 07/10/19 [Vitamin D3] Apixaban [Eliquis] 5 mg PO BID 06/17/19 07/10/19 Diltiazem CD (24hr) [Cardizem CD] 180 mg PO DAILY 06/17/19 07/10/19 Ferrous Sulfate [Iron] 325 mg PO DAILY 06/17/19 07/10/19 Metoprolol [Lopressor] 50 mg PO BID 06/17/19 07/10/19 Previous Rx's Medication Instructions Recorded Ondansetron ODT [Zofran ODT] 4 mg SL Q6HR PRN #14 tab.rapdis 09/13/18 Allergies Allergy/AdvReac Type Severity Reaction Status Date / Time amitriptyline Allergy Hives Verified 07/10/19 20:55 clarithromycin [From Biaxin] AdvReac Intermediate Vomiting Verified 07/10/19 20:55 oxycodone [From Percocet] AdvReac Vomiting Verified 07/10/19 20:55 risperidone [From Risperdal] AdvReac Hypertensio Verified 07/10/19 20:55 n Biaxin AdvReac Severe Vomiting Uncoded 07/10/19 20:55 Chest Pain PMH - Past Medical History Medical history: Reports: arthritis, atrial fibrillation, diabetes, fibromyalgia, GERD, hyperlipidemia, hypertension, thyroid disease, other Surgical history: Reports: appendectomy, cholecystectomy, hysterectomy Psychiatric history: Reports: anxiety, depression, PTSD, previous psychiatric hospitalization - Social History Smoking Status: Never smoker Alcohol use: Reports: none Drug use: Reports: none Physical Exam - General Limitations: no limitations General appearance: alert - Head Head exam: atraumatic, normocephalic, normal inspection - Eye Eye exam: Present: normal appearance, PERRL, EOMI - Expanded Eye Exam Pupils: Left: reactive - ENT ENT exam: normal exam, normal oropharynx, mucous membranes moist - Expanded ENT Exam External ear exam: Present: normal external inspection Mouth exam: Present: normal external inspection Teeth exam: Present: normal inspection Throat exam: Present: normal inspection - Neck Neck exam: Present: normal inspection, full ROM, trachea midline - Chest Chest inspection: Present: normal inspection, symmetric chest wall rise, tenderness (Minimal) - Respiratory Respiratory exam: Present: normal lung sounds bilaterally. Absent: respiratory distress, wheezes - Cardiovascular Cardiovascular exam: Present: regular rate, normal rhythm, normal heart sounds - Abdominal Exam Abdominal exam: Present: soft, Non-Tender, normal bowel sounds. Absent: tenderness, distention, guarding, rebound, rigidity - Extremities Exam Extremities exam: Present: normal inspection, full ROM. Absent: tenderness, pedal edema - Expanded Upper Extremity Exam Shoulder exam: Present: normal inspection, full ROM. Absent: tenderness Arm exam: Present: normal inspection, full ROM. Absent: tenderness, swelling Elbow exam: Present: normal inspection, full ROM. Absent: tenderness, swelling Forearm/Wrist exam: Present: normal inspection, full ROM. Absent: tenderness, swelling Hand exam: Present: normal inspection, full ROM. Absent: tenderness, swelling Vascular exam: Normal: capillary refill, radial pulse - Expanded Lower Extremity Exam Hip/Pelvis exam: Present: normal inspection, full ROM. Absent: tenderness, swelling Upper leg exam: Present: normal inspection, full ROM. Absent: tenderness, swelling Knee exam: Present: normal inspection, full ROM. Absent: tenderness, swelling Lower leg exam: Present: normal inspection, full ROM. Absent: tenderness, swelling Ankle exam: Present: normal inspection, full ROM, other (Nonpitting edema). Absent: tenderness, swelling Foot/toe exam: Present: normal inspection, full ROM Neurovascular/Tendon exam: Present: normal capillary refill. Absent: motor deficit, sensory deficit, tendon deficit - Back Exam Back exam: Present: normal inspection, full ROM. Absent: tenderness, CVA tenderness (R), CVA tenderness (L) - Neurological Exam Neurological exam: Present: alert, oriented X3, CN II-XII intact - Expanded Neurological Exam Patient oriented to: Present: person, place, time Speech: Present: fluid speech Coma Scale Eye Opening: Spontaneous Coma Scale Motor Response: Obeys Commands Coma Scale Verbal Response: Oriented Coma Scale Total: 15 - Psychiatric Psychiatric exam: Present: normal affect, normal mood - Skin Skin exam: Present: warm, dry, intact, normal color Course Course Narrative: Patient placed in exam room H&P obtained nurse notes reviewed Patient was given nitroglycerin sublingual which did alleviate her pain. She villafuerte s a history of gastritis and duodenitis from a scope 4 weeks prior. She is currently on omeprazole and has been. EKG did not show any ST elevations. Chest x-ray was unremarkable. Pain does get worse with exertion. Patient is on estrogen. D-dimer was negative. Her graft however, CT of the chest was obtained to rule out pulmonary embolism which was negative for pulmonary embolism. Patient had nitro paste placed to chest wall Patient developed a headache secondary to nitroglycerin therefore Tylenol was given. Patient will require observation for rule out acute coronary syndrome. Dr. Eren ocampo was notified and agreed accept for observation - Consultations Consultation #1: I spoke with Dr. Leonard. He agrees to ask that the patient is observation to rule out. Patient's CT scan was negative for pulmonary embolism Time: 03:56 Vital Signs Temperature 98.6 F 07/10/19 20:55 Pulse Rate 82 07/10/19 20:55 Respiratory Rate 20 07/10/19 20:55 Blood Pressure 156/82 07/10/19 20:55 O2 Sat by Pulse Oximetry 96 07/10/19 20:55 Temperature 98.6 F 07/10/19 21:43 Pulse Rate 80 07/11/19 04:06 Respiratory Rate 16 07/11/19 04:06 Blood Pressure 136/81 07/11/19 04:06 O2 Sat by Pulse Oximetry 99 07/11/19 04:06 Oxygen Delivery Oxygen Delivery Room Air Chest Pain - Medical Records Medical records reviewed: Yes I reviewed the patient's medical records. - Lab Data Lab results reviewed: Yes I reviewed the patient's lab results. Result diagrams: 07/10/19 21:57 07/10/19 21:57 Lab Results 07/10/19 07/10/19 07/10/19 Range/Units 21:57 21:57 21:57 WBC (4.3-11.1) K/mcL RBC (3.82-4.97) M/mcL Hgb (11.5-15.4) g/dL Hct (35.3-44.9) % MCV (83.0-100.0) fL MCH (28.0-33.3) pg MCHC (31.6-35.5) g/dL RDW (11.5-14.5) % Plt Count (140-400) K/mcL MPV (9.4-12.4) fL Immature Gran % (0-4) % Seg Neutrophils % % Lymphocytes % % Monocytes % % Eosinophils % % Basophils % % Neutrophils # (1.6-8.9) K/mcL Lymphocytes # (0.6-4.6) K/mcL Monocytes # (0.0-1.3) K/mcL Eosinophils # (0.0-0.6) K/mcL Basophils # (0.0-0.2) K/mcL PT 12.3 H (9.4-12.1) Seconds INR 1.1 APTT 37.0 H (26.0-36.0) Seconds D-Dimer < 215 (0-500) ng/mLFEU Sodium (136-145) mEq/L Potassium (3.5-5.1) mEq/L Chloride (98-107) mEq/L Carbon Dioxide (23-29) mEq/L BUN (6-20) mg/dL Creatinine (0.60-1.20) mg/dL Est GFR ( Amer) (> 60) Est GFR (Non-Af Amer) (> 60) BUN/Creatinine Ratio (6-26) Glucose (70-105) mg/dL Calculated Osmolality (280-300) Calcium (8.6-10.3) mg/dL Total Bilirubin 0.3 (0.3-1.0) mg/dL Direct Bilirubin 0.0 (0.0-0.2) mg/dL Indirect Bilirubin 0.3 (0.0-1.2) mg/dL AST 11 L (13-39) Units/L ALT 12 (7-52) Units/L Alkaline Phosphatase 55 (34-104) Units/L Troponin I (< 0.04) ng/mL B-Natriuretic Peptide 15 (Less than 100) pg/mL Serum Total Protein 6.7 (6.4-8.9) g/dL Albumin 4.0 (3.5-5.7) g/dL Globulin 2.7 (2.4-3.5) g/dL Albumin/Globulin Ratio 1.5 (1.1-2.2) Lipase (11-82) Units/L 07/10/19 07/10/19 07/10/19 Range/Units 21:57 21:57 21:57 WBC 12.1 H (4.3-11.1) K/mcL RBC 3.69 L (3.82-4.97) M/mcL Hgb 11.1 L (11.5-15.4) g/dL Hct 31.9 L (35.3-44.9) % MCV 86.4 (83.0-100.0) fL MCH 30.1 (28.0-33.3) pg MCHC 34.8 (31.6-35.5) g/dL RDW 12.9 (11.5-14.5) % Plt Count 423 H (140-400) K/mcL MPV 8.8 L (9.4-12.4) fL Immature Gran % 0.5 (0-4) % Seg Neutrophils % 64.9 % Lymphocytes % 25.7 % Monocytes % 6.0 % Eosinophils % 2.3 % Basophils % 0.6 % Neutrophils # 7.8 (1.6-8.9) K/mcL Lymphocytes # 3.1 (0.6-4.6) K/mcL Monocytes # 0.7 (0.0-1.3) K/mcL Eosinophils # 0.3 (0.0-0.6) K/mcL Basophils # 0.1 (0.0-0.2) K/mcL PT (9.4-12.1) Seconds INR APTT (26.0-36.0) Seconds D-Dimer (0-500) ng/mLFEU Sodium 137 (136-145) mEq/L Potassium 3.5 (3.5-5.1) mEq/L Chloride 105 (98-107) mEq/L Carbon Dioxide 21 L (23-29) mEq/L BUN 13 (6-20) mg/dL Creatinine 0.61 (0.60-1.20) mg/dL Est GFR ( Amer) > 60 (> 60) Est GFR (Non-Af Amer) > 60 (> 60) BUN/Creatinine Ratio 21 (6-26) Glucose 188 H (70-105) mg/dL Calculated Osmolality 289 (280-300) Calcium 9.2 (8.6-10.3) mg/dL Total Bilirubin (0.3-1.0) mg/dL Direct Bilirubin (0.0-0.2) mg/dL Indirect Bilirubin (0.0-1.2) mg/dL AST (13-39) Units/L ALT (7-52) Units/L Alkaline Phosphatase (34-104) Units/L Troponin I < 0.03 (< 0.04) ng/mL B-Natriuretic Peptide (Less than 100) pg/mL Serum Total Protein (6.4-8.9) g/dL Albumin (3.5-5.7) g/dL Globulin (2.4-3.5) g/dL Albumin/Globulin Ratio (1.1-2.2) Lipase 11 (11-82) Units/L - Radiology Data Radiology results reviewed: Yes I reviewed the patient's radiology results. Chest X-Ray 07/10/19 22:40 IMPRESSION: No acute findings. D/ / Jerod Huff / Jerod Huff Interpreting Provider: Jerod Huff Chest CTA 07/11/19 03:30 IMPRESSION: 1. No scan evidence for pulmonary embolus. 2. Coronary artery disease. 3. Bilateral tiny pulmonary nodules. Recommend follow-up: In a low-risk patient, no routine follow-up. In a high-risk patient, optional CT at 12 months. D/ / Jono Bhatti MD / Jono Bhatti MD Interpreting Provider: Jono Bhatti MD - EKG Data EKG attestation: Yes I reviewed and interpreted this EKG. EKG results narrative: EKG obtained at 2045 hrs. demonstrates normal sinus rhythm 70 bpm, normal axis, borderline; normal intervals and nonspecific ST depression V2 V3 V4 and V5 which was not evident on previous EKG from 06/17/2019 at 1615. There is a T-wave inversion in lead 3 that was present prior Heart Score - Score History: Slightly Suspicious EKG: Non Specific repolarisation Disturbance Age: 45-65 Risk Factors: Equal/Greater than 3 risk factor or history of atherosclerotic disease Troponin: Less than normal limit HEART Score Total: 4 Critical Care Time Critical Care Time: Yes Total Critical Care Time: 30 Attestation: The high probability of a clinically significant, sudden or life threatening deterioration of the patient's condition required my full and direct attention, intervention and personal management.
[2019-07-10 22:11] LABS: Basophils # 0.1 K/mcL (0.0-0.2); Basophils % 0.6 %; Eosinophils # 0.3 K/mcL (0.0-0.6); Eosinophils % 2.3 %; Hematocrit 31.9 % (35.3-44.9); Hemoglobin 11.1 g/dL (11.5-15.4); Immature Granulocytes % 0.5 % (0-4); Lymphocytes # 3.1 K/mcL (0.6-4.6); Lymphocytes % 25.7 %; Mean Corpuscular HGB Conc 34.8 g/dL (31.6-35.5); Mean Corpuscular Hemoglobin 30.1 pg (28.0-33.3); Mean Corpuscular Volume 86.4 fL (83.0-100.0); Mean Platelet Volume 8.8 fL (9.4-12.4); Monocytes # 0.7 K/mcL (0.0-1.3); Neutrophils # 7.8 K/mcL (1.6-8.9); Platelet Count 423 K/mcL (140-400); Red Blood Count 3.69 M/mcL (3.82-4.97); Red Cell Distribution Width 12.9 % (11.5-14.5); Segmented Neutrophils % 64.9 %; White Blood Count 12.1 K/mcL (4.3-11.1)
[2019-07-10 22:24] LABS: INR 1.1; Prothrombin Time 12.3 Seconds (9.4-12.1)
[2019-07-10 22:26] LABS: D-Dimer < 215 ng/mLFEU (0-500)
[2019-07-10 22:32] LABS: Albumin/Globulin Ratio 1.5 (1.1-2.2); Bilirubin,Indirect 0.3 mg/dL (0.0-1.2); Bilirubin,Total 0.3 mg/dL (0.3-1.0); Globulin 2.7 g/dL (2.4-3.5); Total Protein 6.7 g/dL (6.4-8.9)
[2019-07-10 22:33] LABS: BUN/Creatinine Ratio 21 (6-26); Blood Urea Nitrogen 13 mg/dL (6-20); Calcium 9.2 mg/dL (8.6-10.3); Carbon Dioxide 21 mEq/L (23-29); Chloride 105 mEq/L (98-107); Glucose 188 mg/dL (70-105); Osmolality,Calculated 289 (280-300); Potassium 3.5 mEq/L (3.5-5.1); Sodium 137 mEq/L (136-145); eGFR For African Americans > 60 (> 60); eGFR For Non-African Americans > 60 (> 60)
[2019-07-10 22:34] LABS: Troponin I < 0.03 ng/mL (< 0.04)
[2019-07-11] MEDS ORDERED: Nitroglycerin 1 INCH/GM PACKET TP ONE (00:54)
[2019-07-11] MEDS ORDERED: Isovue-370 500 ML BOTTLE IVP ONE (00:54)
--- NOTE | 2019-07-11 06:15 | Internal Med History&Physical ---
Date of Encounter: 07/11/19 Time of Encounter: 06:12 Internal Medicine - H&P: HPI Chief complaint: chest pain Admitted From: Home Plans for Post Hospital Care: Home History of present illness: Ms. Anne is a 49 year old functional female with a past medical history of hypertension, type 2 diabetes, hyperlipidemia, class II obesity presented to the ED for chest pain. Patient on was walking and then developed sudden onset acute substernal intermittent chest pressure radiating to the back. Patient on Saturday the day started having the chest pain being constant 5/10 rated exacerbated with walking with no alleviating factors no association of fever, chills, nausea, vomiting, shortness of breath, abdominal pain, diarrhea. Constant chest pain with worsening intensity is why the patient came today to the ED. Patient reported cardiac disease paternal [place] at age 50s. current nonsmoker. Reviewed patient's past surgical, family, social and medical history. CODE STATUS reviewed and full code. [id number] encounter occurred about 5:30 AM. Past Med Surg Social Fam HX - Past Medical History Medical history: arthritis, atrial fibrillation, diabetes, fibromyalgia, GERD, hyperlipidemia, hypertension, thyroid disease, other Additional medical history: diveriticulosis Psychiatric history: anxiety, depression, PTSD, previous psychiatric hospitalization - Past Surgical History Surgical History: appendectomy, cholecystectomy, hysterectomy Additional surgical history: achilles repair bilateral. 4/2 injection into right knee for arthritis - first injection - Social History Smoking Status: Never smoker Smokeless Tobacco Status: No Alcohol use: none Drug use: none - Family History Father Family Member Ethnicity: Non- Living Status: Hx Family Cardiac Disorders: Yes Hx Family Respiratory Disorders: Yes Hx Family Cancer: No Hx Family GI Disorders: Yes Hx Family Endocrine Disorder: No Hx Family Neuromuscular Disorders: Yes (Uncle) Hx Family Neurologic Disorders: No Hx Family HEENT Disorders: No Hx Family Autoimmune Disorders: No Mother Family Member Ethnicity: Non- Living Status: Still Living Hx Family Cardiac Disorders: Yes Hx Family Respiratory Disorders: Yes Hx Family Cancer: No Hx Family GI Disorders: Yes Hx Family Endocrine Disorder: No Hx Family Neuromuscular Disorders: No Hx Family Neurologic Disorders: Yes (Brother MS) Hx Family HEENT Disorders: No Hx Family Autoimmune Disorders: No Internal Medicine - H&P: Meds Escitalopram [Lexapro] 20 mg PO DAILY 02/17/18 [History] Estradiol [Estrace] 1 mg PO DAILY 02/17/18 [History] LORazepam [Ativan] 0.5 mg PO BID PRN 02/17/18 [History] Levothyroxine Sodium [Levoxyl] 175 mcg PO QAM 02/17/18 [History] Ondansetron ODT [Zofran ODT] 4 mg SL Q6HR PRN #14 tab.rapdis 09/13/18 [Rx] Ezetimibe [Zetia] 10 mg PO DAILY 01/22/19 [History] Gabapentin [Neurontin] 300 mg PO HS 01/22/19 [History] Metformin HCl [Metformin ER Gastric] 500 mg PO BID 01/22/19 [History] Cholecalciferol (Vitamin D3) [Vitamin D3] 2,000 unit PO DAILY 01/23/19 [History] Apixaban [Eliquis] 5 mg PO BID 06/17/19 [History] Diltiazem CD (24hr) [Cardizem CD] 180 mg PO DAILY 06/17/19 [History] Ferrous Sulfate [Iron] 325 mg PO DAILY 06/17/19 [History] Metoprolol [Lopressor] 50 mg PO BID 06/17/19 [History] Allergy/AdvReac Type Severity Reaction Status Date / Time amitriptyline Allergy Hives Verified 07/10/19 20:55 clarithromycin [From Biaxin] AdvReac Intermediate Vomiting Verified 07/10/19 20 :55 oxycodone [From Percocet] AdvReac Vomiting Verified 07/10/19 20:55 risperidone [From Risperdal] AdvReac Hypertensio Verified 07/10/19 20:55 n Biaxin AdvReac Severe Vomiting Uncoded 07/10/19 20:55 All Systems PM: A 10-system review of systems was performed and is negative for pertinent findings except as documented above in the HPI. Review of systems: General: No unintentional weightloss, No fever Head: No headahce, No injury. Ears: No discharge, No earache Eyes: No drainage, No eye pain Mouth and Throat: No new ulcers, No pain Nose and Sinus: No new congestion, No pain, Respiratory: No cough, No sputum production, No dyspnea Cardiovascular: + chest pain, + palpitations. Gastrointestinal: No nausea, No vomiting. No abdominal pain. Genital Tract: No discharge, No pain Urinary Tract: No dysuria, No discharge. MSK: No new/worsening joint pain, No new/worsening muscle ache. Endocrine: No cold intolerance, No polyuria Psychological: No suicidal, No homocidal ideation. - Constitutional Vitals: Temp Pulse Resp BP Pulse Ox 98.6 F 80 16 136/81 99 07/10/19 21:43 07/11/19 04:06 07/11/19 04:06 07/11/19 04:06 07/11/19 04:06 Exam: General Appearance: Appearing as age, well-nourished in mild acute distress. Head: Atraumatic normocephalic Skin: Normal texture, normal turgor, warm, dry. Eyes: Conjunctivae not pale with no erythema, drainage, or ulcers. Anicteric. Neck: No Lymphadenopathy in the anterior/posterior cervical chain. No thyromegaly, masses or ulcers. Trachea midline. Heart: RRR, no murmurs. Capillary refill 3 seconds. Chest pain nonreproducible Lungs: No accessory muscle usage, lungs clear to auscultation bilaterally, no wheezes or crackles. Extremities: No pitting edema, No clubbing, No cyanosis. Abdomen: Morbid obese. active bowel sounds. non-tender to palpation, no hepatomegally. No guarding.. Neuro: AOx3 with no new sensory loss or focal deficits. MSK: Strength 5/5 Upper extremity equal bilaterally. Strength 5/5 Lower extremity equal bilaterally Internal Med - H&P Results - Labs CBC & Chem 7: 07/10/19 21:57 07/10/19 21:57 Labs: Short CBC 07/10/19 Range/Units 21:57 WBC 12.1 H (4.3-11.1) K/mcL Hgb 11.1 L (11.5-15.4) g/dL Hct 31.9 L (35.3-44.9) % Plt Count 423 H (140-400) K/mcL Neutrophils # 7.8 (1.6-8.9) K/mcL BMP 07/10/19 21:57 Sodium 137 Potassium 3.5 Chloride 105 Carbon Dioxide 21 L BUN 13 Creatinine 0.61 Glucose 188 H Calcium 9.2 Cardiac Enzymes 07/10/19 Range/Units 21:57 Troponin I < 0.03 (< 0.04) ng/mL Liver Function 07/10/19 Range/Units 21:57 Total Bilirubin 0.3 (0.3-1.0) mg/dL Direct Bilirubin 0.0 (0.0-0.2) mg/dL AST 11 L (13-39) Units/L ALT 12 (7-52) Units/L Alkaline Phosphatase 55 (34-104) Units/L Albumin 4.0 (3.5-5.7) g/dL - Impressions ITS Impressions Chest X-Ray 07/10/19 22:40 IMPRESSION: No acute findings. D/ / Jerod Huff / Jerod Huff Interpreting Provider: Jerod Huff Chest CTA 07/11/19 03:30 IMPRESSION: 1. No scan evidence for pulmonary embolus. 2. Coronary artery disease. 3. Bilateral tiny pulmonary nodules. Recommend follow-up: In a low-risk patient, no routine follow-up. In a high-risk patient, optional CT at 12 months. D/ / Jono Bhatti MD / Jono Bhatti MD Interpreting Provider: Jono Bhatti MD - Summary of Assessment and Plan Summary of Assessment and Plan: 1.Acute Typical Chest pain: 3/3(Substernal/Alleviated with rest/Worsened with exertion) JOSSIE Score: 3 BB, Nitro, high intensity statin, Oxygen, ASA. on eliquis. Nuclear Stress test. Troponin, EKG q6hour, Cardiac monitoring. 2.Anemia: Normocytic etiology unclear. Anemia panel ordered. 3.Hyperglycemia uncontrolled diabetes: Held metformin and continue insulin sliding scale chronic medical disease: Paroxysmal A. fib: continue medication Hypertension continue medication HLP: a continue medication Hypothyroidism: continue home med DVT prophylaxis: On systemic anticoagulation Disposition: Likely less than 2 day stay - Time Spent With Patient Total time spent is greater than 38 minutes 50% in coordination of care (as documented) at patient's floor/unit and/or counseling patient: Greater than 35 minutes - VTE Reasons for not Prescribing Prophylaxis: Not indicated-Anticoagulated or INR therapeutic
[2019-07-11] MEDS ORDERED: Morphine Sulfate 2 MG/ML SYRINGE IVP PRN (06:21)
[2019-07-11 07:12] LABS: Prothrombin Time 11.3 Seconds (9.4-12.1)
[2019-07-11] MEDS ORDERED: Regadenoson 0.4 MG/5 ML SYRINGE IVP ONE (07:21)
[2019-07-11] MEDS: Diltiazem CD (24hr) 180 MG CAPSULE PO SCH (08:24)
[2019-07-11] MEDS: Apixaban 5 MG TABLET PO SCH ×2 (08:24→20:12)
[2019-07-11] MEDS ORDERED: NON-FORMULARY MEDICATION 1 EACH EACH (Ezetimibe [Zetia] 10 MG) PO SCH (09:00)
[2019-07-11] MEDS: hydroCHLOROthiazide 25 MG TABLET PO SCH (09:40)
[2019-07-11 10:16] LABS: Amphetamine Screen,Urine Negative ng/mL (Cutoff=1000); Barbiturate Screen,Urine Negative ng/mL (Cutoff=200); Benzodiazepines Screen,Urine Negative ng/mL (Cutoff=200); Cannabinoid Screen,Urine Negative ng/mL (Cutoff = 50); Cocaine Screen,Urine Negative ng/mL (Cutoff= 300); Opiate Screen,Urine Negative ng/mL (Cutoff=300); Phencyclidine Screen,Urine Negative ng/mL (Cutoff=25)
[2019-07-11] MEDS: Acetaminophen 325 MG TABLET PO PRN ×2 (12:30→20:11)
[2019-07-11] MEDS: *HR* LORazepam 0.5 MG TABLET PO PRN ×2 (12:30→22:05)
[2019-07-11] MEDS: Gabapentin 300 MG CAPSULE PO SCH (22:05)
[2019-07-12 00:51] LABS: Basophils % 0.4 %; Eosinophils # 0.3 K/mcL (0.0-0.6); Eosinophils % 3.5 %; Hematocrit 33.4 % (35.3-44.9); Hemoglobin 11.3 g/dL (11.5-15.4); Immature Granulocytes % 0.5 % (0-4); Lymphocytes # 2.8 K/mcL (0.6-4.6); Lymphocytes % 30.5 %; Mean Corpuscular HGB Conc 33.8 g/dL (31.6-35.5); Mean Corpuscular Hemoglobin 29.8 pg (28.0-33.3); Mean Corpuscular Volume 88.1 fL (83.0-100.0); Mean Platelet Volume 8.9 fL (9.4-12.4); Monocytes # 0.6 K/mcL (0.0-1.3); Monocytes % 6.9 %; Neutrophils # 5.4 K/mcL (1.6-8.9); Platelet Count 419 K/mcL (140-400); Red Blood Count 3.79 M/mcL (3.82-4.97); Red Cell Distribution Width 12.8 % (11.5-14.5); Segmented Neutrophils % 58.2 %; White Blood Count 9.3 K/mcL (4.3-11.1)
[2019-07-12 00:53] LABS: Retculocyte # 0.07 M/mcL (0.05-0.10); Reticulocyte % 1.8 % (1.6-2.8)
[2019-07-12 01:12] LABS: BUN/Creatinine Ratio 26 (6-26); Blood Urea Nitrogen 14 mg/dL (6-20); Carbon Dioxide 22 mEq/L (23-29); Chloride 105 mEq/L (98-107); Glucose 122 mg/dL (70-105); Osmolality,Calculated 290 (280-300); Potassium 3.5 mEq/L (3.5-5.1); Sodium 139 mEq/L (136-145); eGFR For African Americans > 60 (> 60); eGFR For Non-African Americans > 60 (> 60)
[2019-07-12 01:13] LABS: % Iron Saturation 11 % (15-50); Iron 48 mcg/dL (50-170); Transferrin 325 mg/dL (203-362)
[2019-07-12 01:30] LABS: Ferritin 18 ng/mL (10-120)
[2019-07-12 01:36] LABS: Folate 7.7 ng/mL (3.0-16.0)
[2019-07-12] MEDS: Acetaminophen 325 MG TABLET PO PRN ×3 (06:30→21:25)
[2019-07-12] MEDS ORDERED: Regadenoson 0.4 MG/5 ML SYRINGE IVP ONE (08:03)
[2019-07-12] MEDS: Diltiazem CD (24hr) 180 MG CAPSULE PO SCH (10:38)
[2019-07-12] MEDS: hydroCHLOROthiazide 25 MG TABLET PO SCH (10:38)
[2019-07-12] MEDS: Apixaban 5 MG TABLET PO SCH ×2 (10:38→21:21)
[2019-07-12] MEDS: Cholecalciferol (D-3) 1,000 UNIT (25MCG) TABLET PO SCH (10:38)
--- NOTE | 2019-07-12 11:08 | Internal Med Progress Note ---
Hospitalist Progress Note - Encounter Date of Encounter: 07/12/19 Time of Encounter: 11:06 - Subjective Interval History: Ms. Anne is a 49 year old functional female with a past medical history of hypertension, type 2 diabetes, hyperlipidemia, class II obesity presented to the ED for chest pain. Patient on was walking and then developed sudden onset acute substernal intermittent chest pressure radiating to the back. Patient on Saturday the day started having the chest pain being constant 5/10 rated exacerbated with walking with no alleviating factors no association of fever, chills, nausea, vomiting, shortness of breath, abdominal pain, diarrhea. Constant chest pain with worsening intensity is why the patient came today to the ED. Patient reported cardiac disease paternal [place] at age 50s. current nonsmoker. Reviewed patient's past surgical, family, social and medical history. Pt seen and examined in the [facility]. She has no chest pain currently. - Exam Vitals: Temp Pulse Resp BP Pulse Ox 98.1 F 69 14 123/70 96 07/12/19 04:43 07/12/19 04:43 07/12/19 04:43 07/12/19 04:43 07/12/19 07:45 Exam: General Appearance: Appearing as age, well-nourished in mild acute distress. Head: Atraumatic normocephalic Skin: Normal texture, normal turgor, warm, dry. Eyes: Conjunctivae not pale with no erythema, drainage, or ulcers. Anicteric. Neck: No Lymphadenopathy in the anterior/posterior cervical chain. No thyromegaly, masses or ulcers. Trachea midline. Heart: RRR, no murmurs. Capillary refill 3 seconds. Chest pain nonreproducible Lungs: No accessory muscle usage, lungs clear to auscultation bilaterally, no wheezes or crackles. Extremities: No pitting edema, No clubbing, No cyanosis. Abdomen: Morbid obese. active bowel sounds. non-tender to palpation, no hepatomegally. No guarding.. Neuro: AOx3 with no new sensory loss or focal deficits. MSK: Strength 5/5 Upper extremity equal bilaterally. Strength 5/5 Lower extremity equal bilaterally - Assessment and Plan (1) Chest pain Current Visit: Yes Status: Acute Assessment and Plan: Currently has no chest pain. Neg trop, ecg has no acute changes. pending stress test. (2) Paroxysmal A-fib Current Visit: No Status: Chronic Assessment and Plan: rate controlled, continue Eliquis and BB. (3) DVT prophylaxis Current Visit: Yes Status: Acute Assessment and Plan: On Eliquis - Time Spent with Patient Total time spent is greater than 50% in coordination of care (as documented) at patient's floor/unit and/or counseling patient: Greater than 35 minutes Plan of Care Discussed with: patient Internal Medicine: Result - Labs CBC & Chem 7: 07/12/19 00:12 07/12/19 00:12 Labs: Short CBC 07/12/19 Range/Units 00:12 WBC 9.3 (4.3-11.1) K/mcL Hgb 11.3 L (11.5-15.4) g/dL Hct 33.4 L (35.3-44.9) % Plt Count 419 H (140-400) K/mcL Neutrophils # 5.4 (1.6-8.9) K/mcL BMP 07/12/19 00:12 Sodium 139 Potassium 3.5 Chloride 105 Carbon Dioxide 22 L BUN 14 Creatinine 0.53 L Glucose 122 H Calcium 9.0 Cardiac Enzymes 07/11/19 07/11/19 Range/Units 12:21 18:47 Troponin I < 0.03 < 0.03 (< 0.04) ng/mL - ABG Interpretation ABG results: PT/INR, D-dimer PT 11.3 Seconds (9.4-12.1) 07/11/19 06:47 D-Dimer < 215 ng/mLFEU (0-500) 07/10/19 21:57 - VTE Reasons for not Prescribing Prophylaxis: Not indicated-Anticoagulated or INR therapeutic Consult Discharge Plan - Plan Referrals: Liana Torres, [employer] [Primary Care Provider] - (1) Chest pain Qualifiers: Chest pain type: unspecified Qualified Code(s): R07.9 - Chest pain, unspecified
[2019-07-12] MEDS: Gabapentin 300 MG CAPSULE PO SCH (21:21)
[2019-07-12] MEDS: *HR* LORazepam 0.5 MG TABLET PO PRN (21:21)
[2019-07-13 01:41] LABS: Basophils # 0.1 K/mcL (0.0-0.2); Basophils % 0.6 %; Eosinophils # 0.3 K/mcL (0.0-0.6); Eosinophils % 2.8 %; Hematocrit 33.4 % (35.3-44.9); Immature Granulocytes % 0.6 % (0-4); Lymphocytes # 3.3 K/mcL (0.6-4.6); Lymphocytes % 29.4 %; Mean Corpuscular HGB Conc 32.9 g/dL (31.6-35.5); Mean Corpuscular Hemoglobin 29.2 pg (28.0-33.3); Mean Corpuscular Volume 88.6 fL (83.0-100.0); Mean Platelet Volume 9.1 fL (9.4-12.4); Monocytes # 0.7 K/mcL (0.0-1.3); Neutrophils # 6.8 K/mcL (1.6-8.9); Platelet Count 442 K/mcL (140-400); Red Blood Count 3.77 M/mcL (3.82-4.97); Red Cell Distribution Width 12.9 % (11.5-14.5); Segmented Neutrophils % 60.6 %; White Blood Count 11.2 K/mcL (4.3-11.1)
[2019-07-13 02:01] LABS: BUN/Creatinine Ratio 25 (6-26); Blood Urea Nitrogen 15 mg/dL (6-20); Calcium 9.3 mg/dL (8.6-10.3); Carbon Dioxide 23 mEq/L (23-29); Chloride 105 mEq/L (98-107); Glucose 125 mg/dL (70-105); Osmolality,Calculated 288 (280-300); Potassium 3.5 mEq/L (3.5-5.1); Sodium 138 mEq/L (136-145); eGFR For African Americans > 60 (> 60); eGFR For Non-African Americans > 60 (> 60)
[2019-07-13] MEDS: Acetaminophen 325 MG TABLET PO PRN ×3 (05:11→21:37)
[2019-07-13] MEDS: hydroCHLOROthiazide 25 MG TABLET PO SCH (09:44)
[2019-07-13] MEDS: Diltiazem CD (24hr) 180 MG CAPSULE PO SCH (09:45)
[2019-07-13] MEDS: Apixaban 5 MG TABLET PO SCH (09:46)
[2019-07-13] MEDS: Cholecalciferol (D-3) 1,000 UNIT (25MCG) TABLET PO SCH (09:47)
--- NOTE | 2019-07-13 10:00 | Cardiology Consult Note ---
<Andreea Short L - Last Filed: 07/13/19 10:07> Date of Encounter: 07/13/19 Time of Encounter: 09:00 Assessment and Plan (1) Abnormal stress test Current Visit: Yes Status: Acute Patient presented with atypical chest pain, troponin negative, no acute ST/T wave changes. Underwent stress test 07/12: borderline ischemia in the inferior and lateral leads (similar to stress in 12/2016); perfusion imaging negative for ischemia or infarct. RF for CAD include: DMII, HTN, HLD. Recommend LHC with possible PCI; A/R/B discussed, she is agreeable to proceed. Had Eliquis last night. Will hold Eliquis now, and plan for LHC in AM. Patient agreeable. Add asa 81 mg daily, continue statin, and BB. NPO after MN except medications. (2) Paroxysmal A-fib Current Visit: Yes Status: Chronic Hx of PAF on CCB, BB. Anticoagulated on Eliquis 5 mg BID (CHA2Ds Vasc=3). Last dose Eliquis 07/12/19 PM, will hold for LHC on 07/14. Will start Heparin for VTE prophylaxis. Resume Eliquis s/p LHC. Discussion w patient/family: The assessment and plan as outlined above was discussed with the patient and/or family members who expressed understanding and agreement. All questions were answered. Thank you for involving us in the care of your patient. Please call with any questions. The patient will be discussed and reviewed with Dr. Díaz; changes to be made accordingly. History of Present Illness Consult date: 07/13/19 Requesting physician: Haroldo Germain Consult reason: Abnormal stress test Chief complaint: Chest pain History of present illness: Ms. Anne is a 49 year old female with PMHx significant of DMII, HTN, HLD, PAF on Eliquis who presented to the ED with complaints of severe sharp shooting chest pain that started at rest. She reports sharp pain to left side of chest with radiation to left arm/neck. Pain lasted for seconds to minutes and resolved spontaneously. Also complaints of chest pain that worsens with deep breathing. Upon arrival to ED, troponin negative. She underwent CTA that was negative for PE. Exercise nuclear stress test completed and was negative for ischemia or infarct, exercise ECG positive for borderline ischemia. Of note, similar findings noted on stress test in 2017. Prior CV testing: TTE 01/22/19: LVEF 65%, mildly dilated LA, mild TR Past Med Surg Social Fam HX - Past Medical History Attestation: Yes The following information was validated with the patient. Source: patient Medical history: arthritis, atrial fibrillation, diabetes, fibromyalgia, GERD, hyperlipidemia, hypertension, thyroid disease, other Additional medical history: diveriticulosis Psychiatric history: anxiety, depression, PTSD, previous psychiatric hospitalization - Past Surgical History Surgical History: appendectomy, cholecystectomy, hysterectomy Additional surgical history: achilles repair bilateral. 01/20 injection into right knee for arthritis - first injection - Social History Smoking Status: Former smoker Smokeless Tobacco Status: No Alcohol use: none Drug use: none - Family History Father Family Member Ethnicity: Non- Living Status: Cause of : mi Hx Family Cardiac Disorders: Yes (IN, CHF, HTN) Hx Family Respiratory Disorders: Yes Hx Family Cancer: No Hx Family GI Disorders: Yes Hx Family Endocrine Disorder: No Hx Family Neuromuscular Disorders: Yes (Uncle) Hx Family Neurologic Disorders: No Hx Family HEENT Disorders: No Hx Family Autoimmune Disorders: No Mother Family Member Ethnicity: Non- Living Status: Still Living Hx Family Cardiac Disorders: Yes (HTN) Hx Family Respiratory Disorders: Yes Hx Family Cancer: No Hx Family GI Disorders: Yes Hx Family Endocrine Disorder: Yes (DM) Hx Family Neuromuscular Disorders: No Hx Family Neurologic Disorders: Yes (Brother MS) Hx Family HEENT Disorders: No Hx Family Autoimmune Disorders: No Medications and Allergies Escitalopram [Lexapro] 20 mg PO DAILY 02/17/18 [History] Estradiol [Estrace] 1 mg PO DAILY 02/17/18 [History] Levothyroxine Sodium [Levoxyl] 150 mcg PO QAM 02/17/18 [History] Ezetimibe [Zetia] 10 mg PO DAILY 01/22/19 [History] Gabapentin [Neurontin] 300 mg PO HS 01/22/19 [History] Metformin HCl [Metformin ER Gastric] 500 mg PO DAILY 01/22/19 [History] Apixaban [Eliquis] 5 mg PO BID 06/17/19 [History] Diltiazem CD (24hr) [Cardizem CD] 180 mg PO DAILY 06/17/19 [History] Albuterol Sulfate [Ventolin Hfa] 2 puff IH Q6H PRN 07/12/19 [History] Budesonide/Formoterol 160/4.5 [Symbicort 160/4.5] 2 puff IH BID PRN 07/12/19 [History] Ergocalciferol (VITAMIN D2) [Vitamin D2] 50,000 unit PO MO 07/12/19 [History] LORazepam [Ativan] 0.5 mg PO HS 07/12/19 [History] Metoprolol Succinate [Toprol Xl] 50 mg PO BID 07/12/19 [History] Omeprazole [PriLOSEC] 40 mg PO BID 07/12/19 [History] hydroCHLOROthiazide [Hydrochlorothiazide] 12.5 mg PO DAILY 07/12/19 [History] Allergy/AdvReac Type Severity Reaction Status Date / Time amitriptyline Allergy Hives Verified 07/12/19 10:33 clarithromycin [From Biaxin] AdvReac Intermediate Vomiting Verified 07/12/19 10:33 oxycodone [From Percocet] AdvReac Vomiting Verified 07/12/19 10:33 risperidone [From Risperdal] AdvReac Hypertensio Verified 07/12/19 10:33 n Biaxin AdvReac Severe Vomiting Uncoded 07/12/19 10:33 All Systems Review: The remainder of the systems were reviewed and are negative - Cardiovascular Cardiovascular: as per HPI Physical Examination Vital Signs, Last 4 Hours Temp Pulse Resp BP Pulse Ox 07/13/19 07:56 98.7 F 69 18 125/75 95 General: Conversant, No Apparent Distress HEENT: Atraumatic, Normocephaly, Mucus Membranes Moist Neck: No JVD, Normal carotid pulses Cardiac: Reg Rate and Rhythm, Normal S1 and S2, No Murmur Lungs: Normal Breath Sounds, No Wheeze, Rales, Rhonchi Neuro: Alert and responsive, No focal deficits noted Abdomen: Soft, Non-Tender Skin: No rashes noted on visualized skin Musculoskeletal: No Chest Wall Tenderness Extremities: No Clubbing, No Cyanosis, No Edema, Normal Pulses Results 07/13/19 00:25 07/13/19 00:25 Lab Results 07/13/19 07/13/19 00:25 00:25 WBC 11.2 H Hgb 11.0 L Hct 33.4 L Plt Count 442 H Sodium 138 Potassium 3.5 Chloride 105 Carbon Dioxide 23 BUN 15 Creatinine 0.61 Glucose 125 H Calcium 9.3 Active Medications Acetaminophen (Tylenol) 650 mg PO Q6HR PRN PRN Reason: Fever Stop: 01/10/20 09:46 Last Admin: 07/13/19 05:11 Dose: 650 mg Documented by: Albuterol Sulfate (Proventil Inhaler) 2 puff IH Q6H PRN PRN Reason: Shortness Of Breath Stop: 01/12/20 08:27 Apixaban (Eliquis) 5 mg PO BID [facility]; Protocol Stop: 01/10/20 09:01 Last Admin: 07/13/19 09:46 Dose: Not Given Documented by: Atorvastatin Calcium (Lipitor) 40 mg PO DAILY [facility] Stop: 01/10/20 06:31 Last Admin: 07/13/19 09:45 Dose: 40 mg Documented by: Budesonide/Formoterol Fumarate (Symbicort) 2 puff IH BID PRN; Protocol PRN Reason: Shortness Of Breath Stop: 01/12/20 08:27 Diltiazem HCl (Cardizem Cd) 180 mg PO DAILY [facility] Stop: 01/10/20 09:01 Last Admin: 07/13/19 09:45 Dose: 180 mg Documented by: Escitalopram Oxalate (Lexapro) 20 mg PO DAILY [facility] Stop: 01/10/20 09:01 Last Admin: 07/13/19 09:45 Dose: 20 mg Documented by: Estradiol (Estrace) 1 mg PO DAILY [facility] Stop: 01/10/20 09:01 Last Admin: 07/13/19 09:45 Dose: 1 mg Documented by: Ferrous Sulfate (Ferrous Sulfate) 325 mg PO DAILY [facility] Stop: 01/10/20 09:01 Last Admin: 07/13/19 09:45 Dose: 325 mg Documented by: Gabapentin (Neurontin) 300 mg PO HS [facility] Stop: 01/10/20 21:01 Last Admin: 07/12/19 21:21 Dose: 300 mg Documented by: Heparin Sodium (Porcine) (Heparin) 5,000 unit SQ Q12HCO [facility]; Protocol Stop: 07/13/19 18:01 Hydrochlorothiazide (Hydrochlorothiazide) 12.5 mg PO DAILY [facility]; Protocol Stop: 01/10/20 09:01 Last Admin: 07/13/19 09:44 Dose: 12.5 mg Documented by: Levothyroxine Sodium (Synthroid) 150 mcg PO 0630 [facility] Stop: 01/10/20 08:38 Last Admin: 07/13/19 05:09 Dose: 150 mcg Documented by: Lorazepam (Ativan) 0.5 mg PO HS [facility] Stop: 01/12/20 21:01 Metoprolol Tartrate (Lopressor) 50 mg PO BID [facility] Stop: 01/10/20 09:01 Last Admin: 07/13/19 09:45 Dose: 50 mg Documented by: Nitroglycerin (Nitroglycerin) 0.4 mg SL Q5MPRN PRN PRN Reason: Chest Pain Stop: 01/09/20 21:44 Last Admin: 07/10/19 21:53 Dose: 0.4 mg Documented by: Omeprazole (Prilosec) 40 mg PO BIDAC [facility]; Protocol Stop: 01/10/20 08:46 Last Admin: 07/13/19 08:03 Dose: Not Given Documented by: Vitamin D (Vitamin D) 1,000 unit PO DAILY [facility] Stop: 01/11/20 09:01 Last Admin: 07/13/19 09:47 Dose: 1,000 unit Documented by: - Imaging and Cardiology Stress Test: report reviewed Echo: report reviewed Other Results: 12 hour tele: avg HR=69 SR. No PAF noted. - EKG Interpretation EKG results cardiology: personally reviewed Consult Discharge Plan - Plan Referrals: Liana Torres RAW JUICE WEIGHER [Primary Care Provider] - CHADS2-VASC Score - Score Age: Less than 65 Sex: Female CHF History: No Hypertension history: Yes Stroke/TIA/Thromboembolism Hx: No Vascular disease history: No Diabetes history: Yes Score: 3 HAS-BLED Score - Score Medication usage predisposing to bleeding: Antiplatelet agents, NSAIDs, Anticoagulants Score: 1 < A - Last Filed: 07/13/19 21:37> Date of Encounter: 07/13/19 - Attending Attestation I have personally performed a face to face evaluation on this patient. I have reviewed and agree with the documented findings and care plan as documented by the RAW JUICE WEIGHER. History and Exam by me shows: 49-year-old pleasant female with history of paroxysmal atrial fibrillation, prediabetes, hypertriglyceridemia, admitted with worsening chest pain. Stress test was equivocal for ischemia. However chest CT identified coronary calcifications. We will recommend cardiac catheterization. Continue cardizem. Add Imdur 30 mg daily, high intensity statin, aspirin 81 mg daily. Obtain echocardiogram. Thanks for the consult, please call with questions. Jermaine Díaz MD [facility] Assessment and Plan Discussion w patient/family: The assessment and plan as outlined above was discussed with the patient and/or family members who expressed understanding and agreement. All questions were answered. Thank you for involving us in the care of your patient. Please call with any questions. History of Present Illness History of present illness: Ms. Anne is a 49 year old female All Systems Review: The remainder of the systems were reviewed and are negative Physical Examination Vital Signs, Last 4 Hours Temp Pulse Resp BP Pulse Ox 07/13/19 20:05 16 95 07/13/19 18:59 98.4 F 74 16 122/68 95 Results 07/13/19 00:25 07/13/19 00:25 Lab Results 07/13/19 07/13/19 00:25 00:25 WBC 11.2 H Hgb 11.0 L Hct 33.4 L Plt Count 442 H Sodium 138 Potassium 3.5 Chloride 105 Carbon Dioxide 23 BUN 15 Creatinine 0.61 Glucose 125 H Calcium 9.3
--- NOTE | 2019-07-13 10:30 | Electrocardiograph Report ---
[facility] Test Date: 2019-07-10 Pat Name: Lorenza Anne Department: 104 Room: 3B66 Gender: F Turkish Line Attendant: : 1970 Requested By: Guillermo Torres Order Number: [id number] Reading MD: Tavo Trivedi Measurements Intervals [place] Rate: 78 P: 51 PA: 128 QRS: 2 QRSD: 91 T: 17 QT: 398 QTc: 431 Interpretive Statements SINUS RHYTHM Electronically Signed On 07-13-2019 10:02:17 EDT by Tavo Trivedi
[2019-07-13] MEDS: *HR* Heparin 5,000 UNIT/ML VIAL SQ SCH ×2 (11:03→16:42)
[2019-07-13] MEDS: Budesonide/Formoterol 160/4.5 1 PUFF INH IH SCH ×2 (11:15→20:05)
--- NOTE | 2019-07-13 11:41 | Internal Med Progress Note ---
Hospitalist Progress Note - Encounter Date of Encounter: 07/13/19 Time of Encounter: 11:39 - Subjective Interval History: Ms. Anne is a 49 year old functional female with a past medical history of hypertension, type 2 diabetes, hyperlipidemia, class II obesity presented to the ED for chest pain. Patient on was walking and then developed sudden onset acute substernal intermittent chest pressure radiating to the back. Patient on Saturday the day started having the chest pain being constant 5/10 rated exacerbated with walking with no alleviating factors no association of fever, chills, nausea, vomiting, shortness of breath, abdominal pain, diarrhea. Constant chest pain with worsening intensity is why the patient came today to the ED. Patient reported cardiac disease paternal [place] at age 50s. current nonsmoker. Reviewed patient's past surgical, family, social and medical history. Pt seen and examined in the room. She has no chest pain currently. - Exam Vitals: Temp Pulse Resp BP Pulse Ox 98.0 F 70 16 128/68 98 07/13/19 10:48 07/13/19 10:48 07/13/19 11:15 07/13/19 10:48 07/13/19 11:15 Exam: General Appearance: Appearing as age, well-nourished in mild acute distress. Head: Atraumatic normocephalic Skin: Normal texture, normal turgor, warm, dry. Eyes: Conjunctivae not pale with no erythema, drainage, or ulcers. Anicteric. Neck: No Lymphadenopathy in the anterior/posterior cervical chain. No thyromegaly, masses or ulcers. Trachea midline. Heart: RRR, no murmurs. Capillary refill 3 seconds. Chest pain nonreproducible Lungs: No accessory muscle usage, lungs clear to auscultation bilaterally, no wheezes or crackles. Extremities: No pitting edema, No clubbing, No cyanosis. Abdomen: Morbid obese. active bowel sounds. non-tender to palpation, no hepatomegally. No guarding.. Neuro: AOx3 with no new sensory loss or focal deficits. MSK: Strength 5/5 Upper extremity equal bilaterally. Strength 5/5 Lower extremity equal bilaterally - Assessment and Plan (1) Chest pain Current Visit: Yes Status: Acute Assessment and Plan: Currently has no chest pain. Neg trop, ecg has no acute changes. Abnormal stress test, LHC in am per cardiology. (2) Paroxysmal A-fib Current Visit: Yes Status: Chronic Assessment and Plan: rate controlled, on Eliquis and BB. Hold Eliquis for today for upcoming LH in am. (3) DVT prophylaxis Current Visit: Yes Status: Acute Assessment and Plan: SCDs. - Time Spent with Patient Total time spent is greater than 50% in coordination of care (as documented) at patient's floor/unit and/or counseling patient: Greater than 35 minutes Plan of Care Discussed with: patient Internal Medicine: Result - Labs CBC & Chem 7: 07/13/19 00:25 07/13/19 00:25 Labs: Short CBC 07/13/19 Range/Units 00:25 WBC 11.2 H (4.3-11.1) K/mcL Hgb 11.0 L (11.5-15.4) g/dL Hct 33.4 L (35.3-44.9) % Plt Count 442 H (140-400) K/mcL Neutrophils # 6.8 (1.6-8.9) K/mcL BMP 07/13/19 00:25 Sodium 138 Potassium 3.5 Chloride 105 Carbon Dioxide 23 BUN 15 Creatinine 0.61 Glucose 125 H Calcium 9.3 - ABG Interpretation ABG results: PT/INR, D-dimer PT 11.3 Seconds (9.4-12.1) 07/11/19 06:47 D-Dimer < 215 ng/mLFEU (0-500) 07/10/19 21:57 - VTE Reasons for not Prescribing Prophylaxis: Not indicated-Anticoagulated or INR therapeutic Consult Discharge Plan - Plan Referrals: Liana Torres, AUTHORIZATION COORDINATOR [Primary Care Provider] - (1) Chest pain Qualifiers: Chest pain type: unspecified Qualified Code(s): R07.9 - Chest pain, unspecified
[2019-07-13] MEDS: Isosorbide MONOnitrate (24 HR) 30 MG TAB.ER.24H PO SCH (15:57)
[2019-07-13] MEDS: Gabapentin 300 MG CAPSULE PO SCH (21:37)
[2019-07-13] MEDS: *HR* LORazepam 1 MG TABLET PO SCH (21:37)
[2019-07-14 01:43] LABS: Hematocrit 32.5 % (35.3-44.9); Hemoglobin 10.6 g/dL (11.5-15.4); Mean Corpuscular HGB Conc 32.6 g/dL (31.6-35.5); Mean Corpuscular Hemoglobin 28.6 pg (28.0-33.3); Mean Corpuscular Volume 87.8 fL (83.0-100.0); Platelet Count 454 K/mcL (140-400); Red Cell Distribution Width 12.9 % (11.5-14.5); White Blood Count 11.3 K/mcL (4.3-11.1)
[2019-07-14 01:53] LABS: BUN/Creatinine Ratio 27 (6-26); Blood Urea Nitrogen 15 mg/dL (6-20); Calcium 9.5 mg/dL (8.6-10.3); Carbon Dioxide 23 mEq/L (23-29); Chloride 102 mEq/L (98-107); Glucose 111 mg/dL (70-105); Osmolality,Calculated 286 (280-300); Potassium 3.8 mEq/L (3.5-5.1); Sodium 137 mEq/L (136-145); eGFR For African Americans > 60 (> 60); eGFR For Non-African Americans > 60 (> 60)
[2019-07-14] MEDS: Acetaminophen 325 MG TABLET PO PRN ×2 (05:19→18:44)
[2019-07-14] MEDS: hydroCHLOROthiazide 25 MG TABLET PO SCH (09:07)
[2019-07-14] MEDS: Isosorbide MONOnitrate (24 HR) 30 MG TAB.ER.24H PO SCH (09:07)
[2019-07-14] MEDS: Cholecalciferol (D-3) 1,000 UNIT (25MCG) TABLET PO SCH (09:08)
[2019-07-14] MEDS: Diltiazem CD (24hr) 180 MG CAPSULE PO SCH (09:08)
[2019-07-14] MEDS: Budesonide/Formoterol 160/4.5 1 PUFF INH IH SCH ×2 (11:17→20:04)
--- NOTE | 2019-07-14 12:03 | Pre-Sedation Evaluation ---
Pre-sedation evaluation - Pre-sedation checklist Date of procedure: 07/14/19 Procedure: [facility] Recent Vitals: Last Vital Signs Temp 98.8 F 07/14/19 06:44 Pulse 67 07/14/19 06:44 Resp 17 07/14/19 06:44 BP 122/72 07/14/19 06:44 Pulse Ox 97 07/14/19 06:44 H&P (including ROS) documented in medical record: Yes Previous reaction to sedatives/anesthetics: No Dietary Status: NPO after Midnight Airway Assessment: Patient can open mouth completely, TMJ function normal, Micrognathia (under-bite, receding chin) absent, Neck with adequate range of mot ion Dentition: No loose teeth or bridges Possible difficult airway: No ASA Classification *see protocol: CLASS II-Mild systemic disease Plan of Care: Pt appropriate candidate for procedure/moderate/conscious sedation, Risks/benefits of procedure/sedation discussed w/ patient/family Cardiac Registry (Cardio Only) - Functional Capacity Functional Capacity: >=4 METS with symptoms - Clincal Frailty Scale Clinical Frailty Scale: Vulnerable
[2019-07-14] MEDS ORDERED: Nitroglycerin 1,000 MCG/10 ML VIAL IV ONE (12:35)
[2019-07-14] MEDS ORDERED: Heparin 1,000 UNITS/500 mL 500 ML ONE (12:35)
[2019-07-14] MEDS ORDERED: *HR* Heparin 10,000 UNIT/10 ML VIAL ONE (12:35)
[2019-07-14] MEDS ORDERED: 0.9 % Sodium Chloride 2,000 ML ONE (12:35)
[2019-07-14] MEDS ORDERED: Iopamidol 125 ML INFUS..BTL ONE ×4 (12:36→13:53)
[2019-07-14] MEDS ORDERED: *HR* Midazolam HCl 2 MG/2 ML VIAL ONE ×2 (12:41→13:22)
[2019-07-14] MEDS ORDERED: *HR* FentaNYL (PF) 100 MCG/2 ML VIAL ONE ×2 (12:41→14:13)
[2019-07-14] MEDS ORDERED: *HR* Bivalirudin 250 MG VIAL IVC ONE ×2 (13:21→13:48)
--- NOTE | 2019-07-14 13:50 | Internal Med Progress Note ---
Hospitalist Progress Note - Encounter Date of Encounter: 07/14/19 Time of Encounter: 13:48 - Subjective Interval History: Ms. Anne is a 49 year old functional female with a past medical history of hypertension, type 2 diabetes, hyperlipidemia, class II obesity presented to the ED for chest pain. Patient on was walking and then developed sudden onset acute substernal intermittent chest pressure radiating to the back. Patient on Saturday the day started having the chest pain being constant 5/10 rated exacerbated with walking with no alleviating factors no association of fever, chills, nausea, vomiting, shortness of breath, abdominal pain, diarrhea. Constant chest pain with worsening intensity is why the patient came today to the ED. Patient reported cardiac disease paternal [place] at age 50s. current nonsmoker. Reviewed patient's past surgical, family, social and medical history. Pt seen and examined in the room. She has no chest pain currently. - Exam Vitals: Temp Pulse Resp BP Pulse Ox 98.7 F 65 17 114/69 95 07/14/19 12:12 07/14/19 12:12 07/14/19 12:12 07/14/19 12:12 07/14/19 12:12 Exam: General Appearance: Appearing as age, well-nourished in mild acute distress. Head: Atraumatic normocephalic Skin: Normal texture, normal turgor, warm, dry. Eyes: Conjunctivae not pale with no erythema, drainage, or ulcers. Anicteric. Neck: No Lymphadenopathy in the anterior/posterior cervical chain. No thyromegaly, masses or ulcers. Trachea midline. Heart: RRR, no murmurs. Capillary refill 3 seconds. Chest pain nonreproducible Lungs: No accessory muscle usage, lungs clear to auscultation bilaterally, no wheezes or crackles. Extremities: No pitting edema, No clubbing, No cyanosis. Abdomen: Morbid obese. active bowel sounds. non-tender to palpation, no hepatomegally. No guarding.. Neuro: AOx3 with no new sensory loss or focal deficits. MSK: Strength 5/5 Upper extremity equal bilaterally. Strength 5/5 Lower extremity equal bilaterally - Assessment and Plan (1) Chest pain Current Visit: Yes Status: Acute Assessment and Plan: Currently has no chest pain. Neg trop, ecg has no acute changes. Abnormal stress test, [facility] today per cardiology. (2) Paroxysmal A-fib Current Visit: Yes Status: Chronic Assessment and Plan: rate controlled, on Eliquis and BB. Eliquis held yesterday. resume today (3) DVT prophylaxis Current Visit: Yes Status: Acute Assessment and Plan: SCDs. - Time Spent with Patient Total time spent is greater than 50% in coordination of care (as documented) at patient's floor/unit and/or counseling patient: Greater than 35 minutes Plan of Care Discussed with: patient Internal Medicine: Result - Labs CBC & Chem 7: 07/14/19 00:25 07/14/19 00:25 Labs: Short CBC 07/14/19 Range/Units 00:25 WBC 11.3 H (4.3-11.1) K/mcL Hgb 10.6 L (11.5-15.4) g/dL Hct 32.5 L (35.3-44.9) % Plt Count 454 H (140-400) K/mcL BMP 07/14/19 00:25 Sodium 137 Potassium 3.8 Chloride 102 Carbon Dioxide 23 BUN 15 Creatinine 0.56 L Glucose 111 H Calcium 9.5 - ABG Interpretation ABG results: PT/INR, D-dimer PT 11.3 Seconds (9.4-12.1) 07/11/19 06:47 D-Dimer < 215 ng/mLFEU (0-500) 07/10/19 21:57 - VTE Reasons for not Prescribing Prophylaxis: Not indicated-Anticoagulated or INR therapeutic Consult Discharge Plan - Plan Referrals: Liana Torres, CONTROLS DESIGNER [Primary Care Provider] - _ (1) Chest pain Qualifiers: Chest pain type: unspecified Qualified Code(s): R07.9 - Chest pain, unspecified
[2019-07-14] MEDS ORDERED: *HR* Ticagrelor 90 MG TABLET ONE (14:03)
[2019-07-14] MEDS ORDERED: Ondansetron 4 MG/2 ML VIAL IVP ONE (14:29)
[2019-07-14] MEDS ORDERED: 0.9 % Sodium Chloride 1,000 ML IVC SCH (14:30)
--- NOTE | 2019-07-14 18:43 | Invasive Diagnostic Lab Proc ---
Name: Lorenza Anne Date of Study: 07/14/2019 Date: 1970 Ht: 65.0in Medical Record#: [id number] Age: 49 Wt: 220.46lb Gender: Female BSA: 2.06 Order #: [id number] BMI: 36.73 Physicians Procedure Physician: Imelda Dunlap MD, [facility] Referring MD: Referring MD: Staff Name Position Time In Nadege Bryant RT (R) Monitor 12:50 PM Billie Plaza RT (R) Monitor 12:50 PM Yosi Bryant RT (R) Scrub 12:50 PM Milad Latham RN Registered Nurse Cardiac 12:50 PM Procedures Performed Procedure L HRT ARTERY/VENTRICLE ANGIO PRQ CARD BRENDA STENT W/ANGIO 1 VSL Pre-Procedure Checklist Informed consent is complete signed and on chart. H&P is on chart. ID band is on and ID verified with patient. Patient NPO for procedure The procedure was described for the patient and questions were answered. Blood Pressure: 151/85 ECG is on chart. Rhythm: NSR Plan of Care Patient will tolerate the procedure without complications. Adequate level of comfort will be maintained. Hemodynamics will remain stable Patient will recover from procedure without complications. Respiratory function will be maintained. Cardiac rhythm will remain stable. Patient temperature will be maintained. Patient and/or family have verbalized understanding of the procedure. Patient Education Chief Complaint/Reason for Test: Cardiac Cath Developmental Category: Adult (18-64 years) Developmentally Appropriate for Age: Yes Learning Barriers: None Education Needs: Procedure Education Method: Verbal Information Taught: Cardiac Cath Educational Evaluation: Able to repeat information Intravenous Access Time IV Size Location DC'd Fluid/Drip Rate Units RN 10:38 AM 20g 1 /" Patent On Arrival 0.9NaCl 25 ml/hr Milad Latham RN Allergies risperidone oxycodone amitriptyline Biaxin clarithromycin Vital Signs Time BP (mmHg) HR (bpm) O2 Sat. RR (bpm) LOC 12:50 PM / % 5 = Fully awake and oriented or at pre-proc level 12:50 PM / % 4 = Oriented but drowsy 01:05 PM / % 4 = Oriented but drowsy 01:21 PM / % 4 = Oriented but drowsy 01:36 PM / % 4 = Oriented but drowsy 01:51 PM / % 4 = Oriented but drowsy 01:07 PM 143 / 77 81 96 % 26 01:12 PM 151 / 75 96 97 % 24 01:17 PM 159 / 86 87 99 % 27 01:22 PM 151 / 81 88 99 % 26 01:27 PM 147 / 85 85 98 % 25 01:32 PM 155 / 84 87 98 % 25 01:37 PM 143 / 79 85 97 % 23 01:42 PM 148 / 83 92 100 % 20 01:47 PM 152 / 86 93 98 % 16 01:53 PM 158 / 80 92 98 % 24 12:53 PM 151 / 85 74 99 % 16 12:57 PM 136 / 72 68 97 % 26 01:02 PM 124 / 66 66 97 % 28 01:57 PM 161 / 93 94 98 % 22 02:03 PM 168 / 96 95 98 % 25 02:18 PM 138 / 76 79 92 % 18 5 = Fully awake and oriented or at pre-proc level 02:34 PM 130 / 70 72 92 % 18 5 = Fully awake and oriented or at pre-proc level 02:45 PM 120 / 70 73 93 % 18 5 = Fully awake and oriented or at pre-proc level 03:00 PM 120 / 74 74 93 % 18 5 = Fully awake and oriented or at pre-proc level 03:15 PM 115 / 65 72 95 % 16 5 = Fully awake and oriented or at pre-proc level 03:30 PM 113 / 72 68 95 % 16 5 = Fully awake and oriented or at pre-proc level 03:46 PM 124 / 63 68 95 % 16 5 = Fully awake and oriented or at pre-proc level 03:58 PM 117 / 63 72 96 % 16 5 = Fully awake and oriented or at pre-proc level 04:15 PM 116 / 63 68 96 % 16 5 = Fully awake and oriented or at pre-proc level 04:30 PM 121 / 64 72 93 % 16 5 = Fully awake and oriented or at pre-proc level 04:45 PM 130 / 61 72 96 % 16 5 = Fully awake and oriented or at pre-proc level 05:00 PM 133 / 65 70 96 % 16 5 = Fully awake and oriented or at pre-proc level 05:15 PM 123 / 64 68 96 % 16 5 = Fully awake and oriented or at pre-proc level 05:33 PM 135 / 67 68 96 % 16 5 = Fully awake and oriented or at pre-proc level 05:45 PM 128 / 76 68 96 % 16 5 = Fully awake and oriented or at pre-proc level 06:00 PM 127 / 62 66 96 % 16 5 = Fully awake and oriented or at pre-proc level 06:15 PM 128 / 63 73 97 % 16 5 = Fully awake and oriented or at pre-proc level Procedural Medications Time Medication Dose Units Method Given By 12:50 PM Oxygen 2 L/min nasal cannula Milad Latham RN 12:56 PM Versed 2 mg Intravenous Milad Latham RN 12:56 PM Fentanyl 50 mcg Intravenous Milad Latham RN 01:04 PM Lidocaine 2% 20 ml Subcutaneous Imelda Dunlap MD, FAC 01:04 PM Benadryl 25 mg Intravenous Milad Latham RN 01:11 PM Benadryl 25 mg Intravenous Milad Latham RN 01:16 PM Angiomax 0.75mg/kg bolus: 15 ml Intravenous Milad Latham RN 01:18 PM Angiomax 1.75mg/kg/hr: 35 ml Intravenous Milad Latham RN 01:22 PM Versed 1 mg Intravenous Milad Latham RN 01:22 PM Fentanyl 25 mcg Intravenous Milad Latham RN 01:32 PM Versed 1 mg Intravenous Milad Latham RN 01:32 PM Fentanyl 25 mcg Intravenous Milad Latham RN 01:58 PM Nitroglycerin 200 mcg Intracoronary Imelda Dunlap MD, FACC 02:03 PM Brilinta 180 mg Orally Milad Latham RN 02:13 PM Fentanyl 25 mcg Intravenous Milad Latham RN 02:33 PM Zofran 4 mg Intravenous Elaine Mcconnell RN ASA Classification: CLASS II- Mild systemic disease (i.e. well-controlled diabetes, hypertension, asthma, cigarette smoking) Dora Score Preprocedure Postprocedure Activity 2- Moves 4 extremities sustained head lift Activity 2- Moves 4 extremities sustained head lift Circulation 2- SBP +/= 20 points of pre-anesthetic level Circulation 2- SBP +/= 20 points of pre-anesthetic level Consciousness 2- Awake and alert oriented x 3 Consciousness 2- Awake and alert oriented x 3 O2 Saturation 2- Able to maintain O2 satruation of 92% on room air O2 Saturation 2- Able to maintain O2 satruation of 92% on room air Respiratory 2- Able to deep breathe and cough well Respiratory 2- Able to deep breathe and cough well Total Score 10 Total Score 10 Contrast Agent: Isovue Diagnostic Contrast: 407 ml Total Contrast: 407 ml Fluoro Dose: 188 mGy Procedure Log Time Note Enter By 12:47 PM Pt arrived to [employer] [facility] at 12:47 [facility] 12:50 PM Patient charges- Angio tray pack, Navilyst 3mm J, Pulse Oximetry and ACIST tubing and transducer [email or web address] 12:50 PM Physician arrived 12:50 [facility] 12:50 PM Meet and jarett completed [facility] 12:50 PM Sign in performed according to hospital policy. Informed consent was obtained. [email or web address] 12:50 PM ASA Class CLASS II- Mild systemic disease (i.e. well-controlled diabetes, hypertension, asthma, cigarette smoking) [email or web address] 12:50 PM Nadege Bryant RT (R) Position: Monitor Time in: 12:50 [facility] 12:50 PM Billie Plaza RT (R) Position: Monitor [facility]: [facility]:50 [facility] Yosi Bryant RT (R) Position: Scrub Time in: 12:50 [facility] 12:50 PM Milad Latham RN Position: Registered Nurse Cardiac Time in: 12:50 [facility] 12:50 PM Case Delayed no [email or web address] 12:50 PM Time: 12:50 Oxygen on at 2 L/min per nasal cannula by Milad Latham RN [facility] 12:50 PM Time: 12:50 Patient comfortable and pain free: Yes [email or web address] 12:50 PM Time: 12:50LOC: 5 = Fully awake and oriented or at pre-proc level [facility] 12:50 PM CathStat 12:51 PM Vitals capture started with the following parameters, Patient=Adult, Interval=5 min, Initial Psnywxse=026 mmHg, Deflation Rate=3 mmHg, Cuff placed on Right Arm 12:53 PM HR=74 bpm, BVUR=869/85 mmhg, SpO2=99.0 %, Resp=16 B/min 12:56 PM Procedure start 12:56 [facility] 12:56 PM Recorded ECG: HR=72 Condition=Condition 1 12:56 PM Time: 12:56 Versed 2 mg Intravenous Given by Milad [facility]atham [facility] 12[facility] PM Time: 12:56 Fentanyl 50 mcg Intravenous Given by [facility] 12:57 PM HR=68 bpm, AZLN=452/72 mmhg, SpO2=97.0 %, Resp=26 B/min 01:00 PM Pressure channel 1 zeroed. 01:02 PM Hair removed from procedure site in procedure lab using clippers. Bilateral groin prepped with Chloraprep by Nadege Bryant), then patient was draped. Skin intact. twilson :02 PM HR=66 bpm, QLZF=893/66 mmhg, SpO2=97.0 %, Resp=28 B/min 01:03 PM Time out was performed according to hospital policy. Conscious sedation and anesthesia was achieved (see medication log with in this report above) twilson : PM Time: 13:04 20 ml Lidocaine 2% to right groin Subcutaneous Given by Imelda Dunlap MD, [facility] twilson : PM Time: 13:04 Benadryl 25 mg Intravenous Given by Milad Latham RN twilson :04 PM Access obtained by percutaneous puncture. 5Fr 10cm Terumo Torrington sheath placed in right Femoral artery. [id number] twilson : PM Pressure channel 1 zeroed. 01:05 PM 5Fr FL 4 catheter inserted over the wire DN twilson : PM Time: 12:50 Patient comfortable and pain free: Yes twilson :05 PM Wire removed twilson : PM Time: 12:50LOC: 4 = Oriented but drowsy twilson 01:06 PM Recorded Pressure: Ao, HR=68, Condition=Condition 1 (Aorta) Ao 112/63/83 01:07 PM LCA angiography performed in multiple views. twilson : PM Wire reinserted. twilson 01: PM Catheter removed twilson : PM HR=81 bpm, EZDN=814/77 mmhg, SpO2=96.0 %, Resp=26 B/min 01:07 PM 5Fr FR 4 catheter inserted over the wire DN twilson :08 PM Wire removed twilson :08 PM Recorded Pressure: Ao, HR=80, Condition=Condition 1 (Aorta) Ao 114/73/93 01:10 PM Recorded Pressure: Ao, HR=78, Condition=Condition 1 (Aorta) Ao 125/79/101 01:11 PM RCA angiography performed in multiple views. twilson : PM Time: 13:11 Benadryl 25 mg Intravenous Given by Milad Latham RN twilson 01:12 PM Wire reinserted. twilson 01:12 PM Catheter removed twilson :12 PM 5Fr Pigtail catheter inserted over the wire [facility] twilson :12 PM Catheter crossed the aortic valve and was selectively placed in the left ventricle. Pressures recorded on pullback for left heart catheterization. twilson 01:12 PM Wire removed twilson 01:12 PM HR=96 bpm, XHXG=909/75 mmhg, SpO2=97.0 %, Resp=24 B/min 01:13 PM Pressure channel 1 zero failed. 01:13 PM Pressure channel 1 zeroed. 01:13 PM Recorded Pressure: LV, MI=142, Condition=Condition 1 (Left Ventricle) LV 144/-7/7 01:13 PM Recorded Pressure: LV, Ao, HR=86, Condition=Condition 1 (Left Ventricle) LV 146/49/62, (Aorta) Ao 141/94/117 01:14 PM Bolus angiogram of left Ventricle complete: 8 ml/sec for a total of 24 mls twilson 01:14 PM Wire reinserted. twilson 01:14 PM Catheter removed twilson 01:14 PM Preparing for intervention of RCA. twilson 01:14 PM Inflation device was opened. twilson 01:14 PM PCI Status Urgent twilson 01:15 PM Bed management aware. twilson 01:16 PM Sheath exchanged for a 6 Fr 11 cm Terumo Torrington sheath [id number] twilson 01:17 PM Time: 13:16 Angiomax 0.75mg/kg bolus: 15 ml Intravenous Given by Milad Latham RN Cramer pump twilson :17 PM HR=87 bpm, WMRD=229/86 mmhg, SpO2=99.0 %, Resp=27 B/min 01:18 PM PCI Indication: PCI for high risk Non-STEMI or unstable angina twilson :18 PM Time: 13:18 Angiomax 1.75mg/kg/hr: 35 ml Intravenous Given by Milad Latham RN Cramer pump twilson 01:19 PM PCI lesion in Ostial RCA. Pre Stenosis: 99 Pre JOSSIE Flow: 3: Complete and Brisk Flow/Perfusion twilson 01:19 PM PCI lesion in Distal RCA. Pre Stenosis: 99 Pre JOSSIE Flow: 3: Complete and Brisk Flow/Perfusion twilson 01:20 PM 6Fr JR 4 Runway guide catheter was used to cannulate the PCI vessel successfully. reused? No twilson :20 PM Time: 13:05 Patient comfortable and pain free: Yes twilson : PM Time: 13:05LOC: 4 = Oriented but drowsy twilson : PM Recorded Pressure: Ao, HR=87, Condition=Condition 1 (Aorta) Ao 116/40/75 01:22 PM .014 Prowater 180cm guide wire across target lesion- successful. reused? No twilson : PM Time: 13:22 Versed 1 mg Intravenous Given by Milad Latham RN twilson : PM HR=88 bpm, RFOB=995/81 mmhg, SpO2=99.0 %, Resp=26 B/min 01: PM Time: 13: Fentanyl 25 mcg Intravenous Given by Milad Latham RN twilson : PM 2.5 mm x 15 mm Emerge Monorail balloon across target lesion- successful. reused? No twilson :25 PM Balloon inflated @ 10 jose for 20 seconds ostial RCA twilson 01:26 PM Balloon inflated @ 10 jose for 20 seconds ostial RCA twilson 01: PM Balloon inflated @ 14 jose for 20 seconds ostial RCA twilson 01:27 PM Balloon inflated @ 6 jose for 20 seconds ostial RCA twilson :27 PM HR=85 bpm, RSDJ=501/85 mmhg, SpO2=98.0 %, Resp=25 B/min 01:28 PM Recorded Pressure: Ao, HR=85, Condition=Condition 1 (Aorta) Ao 86/55/68 01:28 PM Balloon inflated @ 10 jose for 20 seconds distal RCA twilson 01:29 PM Balloon inflated @ 10 jose for 20 seconds distal RCA twilson 01:30 PM Balloon catheter removed intact. twilson 01:31 PM Recorded Pressure: Ao, HR=85, Condition=Condition 1 (Aorta) Ao 92/44/62 01:32 PM Time: 13:32 Versed 1 mg Intravenous Given by Milad Latham RN twilson 01:32 PM Time: 13:32 Fentanyl 25 mcg Intravenous Given by Milad Latham RN twilson 01:32 PM 2.75mm x 20mm Synergy drug-eluting stent across target lesion- successful Lot #[id number] twilson 01:32 PM HR=87 bpm, SGUF=323/84 mmhg, SpO2=98.0 %, Resp=25 B/min 01:33 PM Stent deployed @ 12 jose for 30 seconds twilson 01:35 PM Stent delivery system removed intact. twilson 01:35 PM 3.5mm x 20mm Synergy drug-eluting stent across target lesion- successful Lot #[id number] twilson 01:35 PM Time: 13:20 Patient comfortable and pain free: Yes twilson 01:36 PM Time: 13:21LOC: 4 = Oriented but drowsy twilson 01:36 PM Coronary Dominance: right twilson 01:37 PM HR=85 bpm, YNXQ=260/79 mmhg, SpO2=97.0 %, Resp=23 B/min 01:38 PM Recorded Pressure: Ao, HR=87, Condition=Condition 1 (Aorta) Ao 124/74/98 01:40 PM Recorded Pressure: Ao, HR=88, Condition=Condition 1 (Aorta) Ao 130/77/102 01:42 PM Stent deployed @ 12 jose for 30 seconds twilson 01:42 PM HR=92 bpm, SUSV=899/83 mmhg, EzQ4=703.0 %, Resp=20 B/min 01:43 PM Balloon inflated @ 12 jose for 15 seconds twilson 01:44 PM Recorded Pressure: Ao, HR=91, Condition=Condition 1 (Aorta) Ao 115/71/92 01:47 PM HR=93 bpm, FOCA=448/86 mmhg, SpO2=98.0 %, Resp=16 B/min 01:48 PM 3.5mm x 8mm Synergy drug-eluting stent across target lesion- successful Lot #[id number] twilson 01:50 PM Recorded Pressure: Ao, HR=91, Condition=Condition 1 (Aorta) Ao 130/77/102 01:51 PM Time: 13:36LOC: 4 = Oriented but drowsy twilson 01:51 PM Time: 13:35 Patient comfortable and pain free: Yes twilson 01:53 PM HR=92 bpm, FLEH=474/80 mmhg, SpO2=98.0 %, Resp=24 B/min 01:55 PM Stent deployed @ 12 jose for 30 seconds twilson 01:57 PM Stent balloon reinflated @ 14 jose for 15 seconds twilson 01:57 PM Stent balloon reinflated @ 16 jose for 16 seconds twilson 01:57 PM HR=94 bpm, LLEZ=413/93 mmhg, SpO2=98.0 %, Resp=22 B/min 01:58 PM Recorded Pressure: Ao, HR=94, Condition=Condition 1 (Aorta) Ao 151/82/114 01:58 PM Time: 13:58 Nitroglycerin 200 mcg Intracoronary Given by Imelda Dunlap MD, FACC twilson 01:59 PM Guide wire removed intact. twilson 02:01 PM Reviewing images. twilson 02:01 PM J-wire reinserted. twilson 02:01 PM Guide catheter removed intact. twilson 02:01 PM Wire removed, intact. twilson 02:01 PM Bolus angiogram of right Femoral complete: 2 ml/sec for a total of 4 mls twilson 02:03 PM HR=95 bpm, GEVA=641/96 mmhg, SpO2=98.0 %, Resp=25 B/min 02:03 PM Time: 14:03 Brilinta 180 mg Orally Given by Milad Latham RN twilson 02:03 PM Procedure completed at 14:03 07/14/2019 twilson 02:03 PM Did you address JOSSIE flow and Dominance? YesCoronary Dominance: right twilson 02:06 PM Sign out completed: Radiation Dose 1457.65 mGy, 188 Gy/cm2 Fluoro Time: 21.8 Isovue 370 - 200ml contrast 407 ml given by Imelda Dunlap MD, [facility]. Complications: None. 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 Sedation minutes 70. Cardiac Rehab Consult needed: Yes. Confirmed administered medications: Yes twilson 02:06 PM Sheath left in place to be pulled on floor/holding areaV+Pad twilson 02:06 PM Time: 13:51 Patient comfortable and pain free: Yes twilson 02:06 PM Time: 13:51LOC: 4 = Oriented but drowsy twilson 02:06 PM Estimated Blood Loss: less than 20cc twilson 02:06 PM Post ECG NSR twilson 02:06 PM Post Blood Pressure 168/96 twilson 02:06 PM 14:06 Post Pulses Bilateral DP & PT 2+ twilson 02:06 PM 14:06 Post Pulses Bilateral radial 2+ twilson 02:06 PM Information taught Cardiac Cath and PCI twilson 02:07 PM Education needs Procedure, Plan of Care, and Responsibilities of Patient in Care twilson 02:07 PM Learning barriers :None twilson 02:07 PM Education Methods Verbal twilson 02: PM Education evaluation Able to repeat information twilson 02:07 PM Site status No bleeding/ No Hematoma - Rt Groin as reported by Yosi Bryant RT (R) at 14:07 twilson 02:09 PM Family placed in consult room. twilson 02:09 PM Plavix, Effient or Brilinta given Yes twilson 02:12 PM Report given to Deja SEGAL Pt taken to Holding room Room #4. 14:12 twilson 02:12 PM Patient out of room: 14:12 twilson 02:14 PM Time: 14:13 Fentanyl 25 mcg Intravenous Given by Milad Latham RN twilson 02:15 PM Lesion found in Distal LMCA. Pre Stenosis: 30 Pre JOSSIE Flow: tw 02:15 PM Lesion found in Proximal Circumflex. Pre Stenosis: 20 Pre JOSSIE Flow: twilson 02:25 PM pt c/o nausea, placed in Trendelenburg, IVF open [email or web address] 02:32 PM order received for Zofran, IVP [email or web address] 02:33 PM cool rag placed on pts head, lights dimmed, pt reports she is feeling better [email or web address] 02:33 PM Time: 14:33 Zofran 4 mg Intravenous Given by Elaine Mcconnell RN [email or web address] 03:08 PM pt c/o intermittent nausea, attempted to void per bedpan but pt unable to void [email or web address] 03:08 PM verbal order received from Dr. Gayle for straight cath if necessary [email or web address] 03:45 PM 900cc emptied per straight cath [email or web address] 04:19 PM Cammy from cardiac rehab in to see patient mprater 05:33 PM Arterial sheath pulled using manual compression and V+ Pad for 45 minutes by Milad Latham RN mprater 05:45 PM Patient c/o nausea. BP 96/60. Patient placed in trendelenberg. [email or web address] 05:52 PM Nausea resolved. BP 113/59 mprater 05:57 PM Manual pressure lifted, small amount of bleeding, manual pressure reapplied per Milad Latham RN mprater 06:15 PM Report called to Batsheva SEGAL on 2A mprater 06:21 PM Patient transported to [facility] mprater Complications Complication None Hemodynamics Pressures Site Systolic/A Wave Diastolic/V Wave Mean AO 112 63 83 AO 114 73 93 AO 125 79 101 LV 144 -7 7 LV 146 49 62 AO 141 94 117 AO 116 40 75 AO 86 55 68 AO 92 44 62 AO 124 74 98 AO 130 77 102 AO 115 71 92 AO 130 77 102 AO 151 82 114 Post Procedure Information Blood Pressure: 168/96 mmHg Rhythm: NSR Post procedural instructions were given Closure Device Time Device Success/Fail Manual Compression Site Checks Time Location Status Staff Sheath In? Note 02:07 PM Rt Groin No bleeding/ No Hematoma Yosi Bryant RT (R) Yes 6FR sheath rt. groin 02:18 PM Rt Groin No bleeding/ No Hematoma Deja Ash RN Yes 02:34 PM Rt Groin No bleeding/ No Hematoma Elaine Mcconnell RN Yes 02:45 PM Rt Groin No bleeding/ No Hematoma Elaine Mcconnell RN Yes 03:00 PM Rt Groin No bleeding/ No Hematoma Elaine Mcconnell RN Yes 03:00 PM Rt Groin No bleeding/ No Hematoma Elaine Mcconnell RN Yes 03:15 PM Rt Groin No bleeding/ No Hematoma Elaine Mcconnell RN Yes 03:30 PM Rt Groin No bleeding/ No Hematoma Elaine Mcconnell RN Yes 03:46 PM Rt Groin No bleeding/ No Hematoma Elaine Mcconnell RN Yes 03:58 PM Rt Groin No bleeding/ No Hematoma Deja Ash RN Yes 04:15 PM Rt Groin No bleeding/ No Hematoma Deja Ash RN Yes 04:30 PM Rt Groin No bleeding/ No Hematoma Deja Ash RN Yes 04:45 PM Rt Groin No bleeding/ No Hematoma Deja Ash RN Yes 05:00 PM Rt Groin No bleeding/ No Hematoma Deja Ash RN Yes 05:15 PM Rt Groin No bleeding/ No Hematoma Deja Ash RN Yes 05:30 PM Rt Groin No bleeding/ No Hematoma Deja Ash RN Yes 05:45 PM Rt Groin No bleeding/ No Hematoma Deja Ash RN 06:00 PM Rt Groin No bleeding/ No Hematoma Deja Ash RN 06:15 PM Rt Groin No bleeding/ No Hematoma Deja Ash RN Pulses Time Site Pre-Procedure Post-Procedure Note 07/14/2019 10:38:00 AM Bilateral DP & PT 2+ 07/14/2019 10:38:00 AM Bilateral radial 2+ 2:06:00 PM Bilateral DP & PT 2+ 2:06:00 PM Bilateral radial 2+ 07/14/2019 2:18:00 PM Bilateral DP & PT 2+ 07/14/2019 4:30:00 PM Bilateral DP & PT 2+ 07/14/2019 6:00:00 PM Bilateral DP & PT 2+ Updated by Deja Ash RN on 07/14/2019 6:28:55 PM Deja Ash RN electronically signed on 07/14/2019 6:38:54 PM with status of Final
[2019-07-14] MEDS: Gabapentin 300 MG CAPSULE PO SCH (20:35)
[2019-07-14] MEDS: *HR* LORazepam 1 MG TABLET PO SCH (20:36)
[2019-07-14] MEDS: Apixaban 5 MG TABLET PO SCH (20:36)
[2019-07-15 04:41] LABS: Hematocrit 32.5 % (35.3-44.9); Hemoglobin 10.8 g/dL (11.5-15.4); Mean Corpuscular HGB Conc 33.2 g/dL (31.6-35.5); Mean Corpuscular Hemoglobin 28.8 pg (28.0-33.3); Mean Corpuscular Volume 86.7 fL (83.0-100.0); Mean Platelet Volume 8.8 fL (9.4-12.4); Platelet Count 464 K/mcL (140-400); Red Blood Count 3.75 M/mcL (3.82-4.97); Red Cell Distribution Width 12.8 % (11.5-14.5); White Blood Count 12.7 K/mcL (4.3-11.1)
[2019-07-15 05:00] LABS: BUN/Creatinine Ratio 21 (6-26); Blood Urea Nitrogen 12 mg/dL (6-20); Carbon Dioxide 21 mEq/L (23-29); Chloride 103 mEq/L (98-107); Glucose 105 mg/dL (70-105); Osmolality,Calculated 284 (280-300); Potassium 3.6 mEq/L (3.5-5.1); Sodium 137 mEq/L (136-145); eGFR For African Americans > 60 (> 60); eGFR For Non-African Americans > 60 (> 60)
[2019-07-15] MEDS: Acetaminophen 325 MG TABLET PO PRN ×2 (06:38→19:03)
[2019-07-15] MEDS: Budesonide/Formoterol 160/4.5 1 PUFF INH IH SCH ×2 (07:28→22:03)
[2019-07-15] MEDS: Isosorbide MONOnitrate (24 HR) 30 MG TAB.ER.24H PO SCH (09:40)
[2019-07-15] MEDS: Diltiazem CD (24hr) 180 MG CAPSULE PO SCH (09:40)
[2019-07-15] MEDS: Apixaban 5 MG TABLET PO SCH ×2 (09:40→20:59)
[2019-07-15] MEDS: hydroCHLOROthiazide 25 MG TABLET PO SCH (09:40)
[2019-07-15] MEDS: Aspirin 81 MG TAB.CHEW PO SCH (09:40)
[2019-07-15] MEDS: Cholecalciferol (D-3) 1,000 UNIT (25MCG) TABLET PO SCH (09:41)
--- NOTE | 2019-07-15 10:28 | Cardiology Progress Note ---
Date of Encounter: 07/15/19 Time of Encounter: 09:00 Assessment and Plan (1) Abnormal stress test Current Visit: Yes Status: Acute Per cardiology: -Patient presented with atypical chest pain, troponin negative, no acute ST/T wave changes. -Underwent stress test 07/12: borderline ischemia in the inferior and lateral leads (similar to stress in 12/2016); perfusion imaging negative for ischemia or infarct. -RF for CAD include: DMII, HTN, HLD. -S/p LHC yesterday with 30% distal LM, 25% prox LAD, 20% prox circ, 99% ostial RCA with BRENDA, 99% distal RCA with BRENDA. -ON asa, plavix, statin, BB. Educated on dual anti-platelet therapy uninterrupted for at least one year, unless otherwise directed by cardiology, patient states understanding. -Denies current chest pain. -Right groin access site without hematoma or ecchymosis. Right groin access site management reviewed with patient, states understanding. -Continue dual anti-platelet therapy uninterrupted unless otherwise directed by cardiology. Can consider discontinuation of ASA after 30 days due to need for eliquis. -Cardiology will sign off, will arrange close outpatient follow up. (2) Paroxysmal A-fib Current Visit: Yes Status: Chronic Per cardiology: -Hx of PAF on CCB, BB. Anticoagulated on Eliquis 5 mg BID (CHA2Ds Vasc=3). -Continue current medical regimen. Discussion w patient/family: The assessment and plan as outlined above was discussed with the patient who expressed understanding and agreement. All questions were answered. Thank you for involving us in the care of your patient. Please call with any questions. Discussed and reviewed with . Subjective Principal diagnosis: Chest pain, abnormal stress Interval history: Patient denies chest pain today. States has been up walking without issues. Objective Vital Signs, Last 4 Hours Temp Pulse Resp BP Pulse Ox 07/15/19 07:28 16 96 07/15/19 07:25 98.5 F 69 18 119/63 94 General: Conversant, No Apparent Distress HEENT: Atraumatic, Normocephaly, Mucus Membranes Moist Neck: No JVD, Normal carotid pulses Cardiac: Reg Rate and Rhythm, Normal S1 and S2, No Murmur Lungs: Normal Breath Sounds, No Wheeze, Rales, Rhonchi Neuro: Alert and responsive, No focal deficits noted Abdomen: Soft, Non-Tender Skin: No rashes noted on visualized skin, Other (Right groin access site without ecchymosis or hematoma. ) Musculoskeletal: No Chest Wall Tenderness Extremities: No Clubbing, No Cyanosis, No Edema, Normal Pulses Results 07/15/19 04:12 07/15/19 04:12 Lab Results Active Medications Acetaminophen (Tylenol) 650 mg PO Q6HR PRN PRN Reason: Fever Stop: 01/10/20 09:46 Last Admin: 07/15/19 06:38 Dose: 650 mg Documented by: Albuterol Sulfate (Proventil Inhaler) 2 puff IH Q6H PRN PRN Reason: Shortness Of Breath Stop: 01/12/20 08:27 Apixaban (Eliquis) 5 mg PO BID [facility]; Protocol Stop: 01/10/20 09:01 Last Admin: 07/15/19 09:40 Dose: 5 mg Documented by: Aspirin (Aspirin) 81 mg PO DAILY [facility] Stop: 01/14/20 09:01 Last Admin: 07/15/19 09:40 Dose: 81 mg Documented by: Atorvastatin Calcium (Lipitor) 40 mg PO DAILY [facility] Stop: 01/10/20 06:31 Last Admin: 07/15/19 09:40 Dose: 40 mg Documented by: Budesonide/Formoterol Fumarate (Symbicort) 2 puff IH BIDRESP [facility]; Protocol Stop: 01/12/20 11:16 Last Admin: 07/15/19 07:28 Dose: 2 puff Documented by: Clopidogrel Bisulfate (Plavix) 75 mg PO DAILY [facility] Stop: 01/14/20 09:01 Last Admin: 07/15/19 09:40 Dose: 75 mg Documented by: Diltiazem HCl (Cardizem Cd) 180 mg PO DAILY [facility] Stop: 01/10/20 09:01 Last Admin: 07/15/19 09:40 Dose: 180 mg Documented by: Escitalopram Oxalate (Lexapro) 20 mg PO DAILY [facility] Stop: 01/10/20 09:01 Last Admin: 07/15/19 09:40 Dose: 20 mg Documented by: Estradiol (Estrace) 1 mg PO DAILY [facility] Stop: 01/10/20 09:01 Last Admin: 07/15/19 09:40 Dose: 1 mg Documented by: Ferrous Sulfate (Ferrous Sulfate) 325 mg PO DAILY [facility] Stop: 01/10/20 09:01 Last Admin: 07/15/19 09:39 Dose: 325 mg Documented by: Gabapentin (Neurontin) 300 mg PO [facility] Stop: 01/10/20 21:01 Last Admin: 07/14/19 20:35 Dose: 300 mg Documented by: Hydrochlorothiazide (Hydrochlorothiazide) 12.5 mg PO DAILY [facility]; Protocol Stop: 01/10/20 09:01 Last Admin: 07/15/19 09:40 Dose: 12.5 mg Documented by: Isosorbide Mononitrate (Imdur) 30 mg PO DAILY [facility] Stop: 01/12/20 14:31 Last Admin: 07/15/19 09:40 Dose: 30 mg Documented by: Levothyroxine Sodium (Synthroid) 150 mcg PO 629 [facility] Stop: 01/10/20 08:38 Last Admin: 07/15/19 06:39 Dose: 150 mcg Documented by: Lorazepam (Ativan) 0.5 mg PO [facility] Stop: 01/12/20 21:01 Last Admin: 07/14/19 20:36 Dose: 0.5 mg Documented by: Metoprolol Tartrate (Lopressor) 50 mg PO BID [facility] Stop: 01/10/20 09:01 Last Admin: 07/15/19 09:49 Dose: 50 mg Documented by: Nitroglycerin (Nitroglycerin) 0.4 mg SL Q5MPRN PRN PRN Reason: Chest Pain Stop: 01/09/20 21:44 Last Admin: 07/10/19 21:53 Dose: 0.4 mg Documented by: Vitamin D (Vitamin D) 1,000 unit PO DAILY [facility] Stop: 01/11/20 09:01 Last Admin: 07/15/19 09:41 Dose: 1,000 unit Documented by: Laboratory Tests 07/15/19 07/15/19 04:12 04:12 WBC 12.7 H Hgb 10.8 L Est GFR ( Amer) > 60 - Imaging and Cardiology Chest Xray: report reviewed Stress Test: report reviewed Echo: report reviewed Cardiac cath: report reviewed - EKG Interpretation EKG results cardiology: other (Telemetry reviewed with average HR previous 12 hours noted to be 72, SR. PVCs, PACs noted.) - VTE Reasons for not Prescribing Prophylaxis: Not indicated-Anticoagulated or INR therapeutic Consult Discharge Plan - Plan Instructions: Atrial Fibrillation (DC), Chest Pain (DC), Left Heart Catheterization (DC), Hypothyroidism (DC), Diabetes Mellitus Type 2 in Adults (DC), Chronic Hypertension (DC), Anemia (GEN), Anxiety (DC) Referrals: Liana Torres CNP [Primary Care Provider] -
--- NOTE | 2019-07-15 19:13 | Internal Med Progress Note ---
Hospitalist Progress Note - Encounter Date of Encounter: 07/15/19 Time of Encounter: 19:11 - Subjective Interval History: Patient's doing well medically this morning but very anxious about her health condition. Does not feel medically ready to go home. Denies chest pain or shortness of breath. - Exam Vitals: Temp Pulse Resp BP Pulse Ox 98.1 F 85 18 143/80 96 07/15/19 15:30 07/15/19 15:30 07/15/19 15:30 07/15/19 15:30 07/15/19 15:30 Exam: General: Ill-appearing and in no acute distress HEENT: No erythema of posterior pharynx. No exudates. Lymphatics: No mandibular or cervical lymphadenopathy Cardiovascular: RRR. No murmurs. No chest wall tenderness. Lungs: Clear to auscelltation bilaterally. Regular chest rise. Abdomen: Non-tender. No rebound or gaurding. Nl bowel sounds. Extremities: No edema. 2+ pulses radial and pedal pulses Skin: No rahses, abrasions, or contusions. Nl cap refill. Psych: Nl attention. A&Ox3 Neuro: cook roast II-XII intact. 5/5 strength. Sensation to light touch and pinprick intact. - Assessment and Plan (1) Chest pain Current Visit: Yes Status: Acute (2) Paroxysmal A-fib Current Visit: Yes Status: Chronic (3) CAD (coronary artery disease) Current Visit: Yes Status: Acute (4) Anxiety and depression Current Visit: Yes Status: Chronic (5) History of OCD (obsessive compulsive disorder) Current Visit: Yes Status: Chronic DVT Prophylaxis: Apixaban - Summary of Assessment and Plan Summary of Assessment and Plan: Unstable Angina CAD s/p BRENDA x2 to RCA Patient with history of NIDDM Type II, HTN, HLD, and obesity presented with chest pain and found to have 99% stenosis of ostial and distal RCA status post BRENDA x2 to these respective vessels. -Angina has now resolved -No signs of heart failure and EF 65% on cath report -Started on ASA and Plavix PLAN: - Continue ASA and Plavix - Can d/c ASA in 1 month given patient is also on NOAC - Continue statin, metoprolol, Imdur Anxiety and Depression Hx of OCD Very worried about going home after recent cardiac stents despite encouragement and reported supportive home environment. History of anxiety and depression. - Continue home medications - Continue emotional support support Atrial Fibrillation - Continue metoprolol and diltiazem - Continue NOAC Internal Medicine: Result - Labs CBC & Chem 7: 07/15/19 04:12 07/15/19 04:12 Labs: Short CBC 07/15/19 Range/Units 04:12 WBC 12.7 H (4.3-11.1) K/mcL Hgb 10.8 L (11.5-15.4) g/dL Hct 32.5 L (35.3-44.9) % Plt Count 464 H (140-400) K/mcL BMP 07/15/19 04:12 Sodium 137 Potassium 3.6 Chloride 103 Carbon Dioxide 21 L BUN 12 Creatinine 0.56 L Glucose 105 Calcium 9.0 - ABG Interpretation ABG results: PT/INR, D-dimer PT 11.3 Seconds (9.4-12.1) 07/11/19 06:47 D-Dimer < 215 ng/mLFEU (0-500) 07/10/19 21:57 - VTE Reasons for not Prescribing Prophylaxis: Not indicated-Anticoagulated or INR therapeutic Consult Discharge Plan - Plan Instructions: Atrial Fibrillation (DC), Chest Pain (DC), Left Heart Catheterization (DC), Hypothyroidism (DC), Diabetes Mellitus Type 2 in Adults (DC), Chronic Hypertension (DC), Anemia (GEN), Anxiety (DC) Referrals: Liana Torres CNP [Primary Care Provider] - 07/21/19 2:00 pm () ___ (1) Chest pain Qualifiers: Chest pain type: unspecified Qualified Code(s): R07.9 - Chest pain, unspecified
[2019-07-15] MEDS: Gabapentin 300 MG CAPSULE PO SCH (20:58)
[2019-07-15] MEDS: *HR* LORazepam 1 MG TABLET PO SCH (20:59)
--- NOTE | 2019-07-15 21:33 | Electrocardiograph Report ---
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
[2019-07-16] MEDS: Budesonide/Formoterol 160/4.5 1 PUFF INH IH SCH (07:30)
[2019-07-16 07:41] VITALS: BP 121/63
--- NOTE | 2019-07-16 08:52 | Discharge Summary ---
Date of Encounter: 07/16/19 Time of Encounter: 08:44 - Discharge Diagnosis (1) Chest pain Priority: Primary Status: Acute Qualifiers: Chest pain type: unspecified Qualified Code(s): R07.9 - Chest pain, unspecified (2) Paroxysmal A-fib Priority: Secondary Status: Chronic (3) CAD (coronary artery disease) Priority: Secondary Status: Acute Qualifiers: Coronary Disease-Associated Artery/Lesion type: [place] artery [place] vs. transplanted heart: [place] heart Associated angina: with unstable angina Qualified Code(s): I25.110 - Atherosclerotic heart disease of [place] coronary artery with unstable angina pectoris (4) Anxiety and depression Priority: Secondary Status: Chronic (5) History of OCD (obsessive compulsive disorder) Priority: Secondary Status: Chronic Hospital course: Ms. Anne is a 49 year old female with history of NIDDM Type II, HTN, HLD, afib on Eliquis, and obesity presented with chest pain and found to have 99% stenosis of ostial and distal RCA status post BRENDA x2 to these respective vessels. Angina has now resolved. No signs of heart failure and EF 65% on cath report. Started on ASA and Plavix. -Will continue ASA/ Plavix, and Eliquis for 1 month - will discontinue ASA after 1 month and continue just Plavix and Eliquis -Instructed to monitor weight daily -Will f/u with PCP and cardiology Discharge discussed with: patient - Time Spent with Patient Total time spent providing and/or coordinating discharge services: 50 minutes Time spent: Greater than 30 minutes - Discharge Medications Prescriptions: New Aspirin 81 mg PO DAILY #30 tab.chew dilTIAZem HCl [Diltiazem 24Hr ER] 240 mg PO Q24H #30 cap.er.24h Atorvastatin [Lipitor] 40 mg PO DAILY #30 tablet Clopidogrel [Plavix] 75 mg PO DAILY #30 tablet Continued Escitalopram [Lexapro] 20 mg PO DAILY Estradiol [Estrace] 1 mg PO DAILY Levothyroxine Sodium [Levoxyl] 150 mcg PO QAM Gabapentin [Neurontin] 300 mg PO HS Metformin HCl [Metformin ER Gastric] 500 mg PO DAILY Apixaban [Eliquis] 5 mg PO BID Albuterol Sulfate [Ventolin Hfa] 2 puff IH Q6H PRN PRN Reason: Shortness Of Breath Budesonide/Formoterol 160/4.5 [Symbicort 160/4.5] 2 puff IH BID PRN PRN Reason: Shortness Of Breath Ergocalciferol (VITAMIN D2) [Vitamin D2] 50,000 unit PO [place] LORazepam [Ativan] 0.5 mg PO HS Metoprolol Succinate [Toprol Xl] 50 mg PO BID Omeprazole [PriLOSEC] 40 mg PO BID Discontinued Ezetimibe [Zetia] 10 mg PO DAILY Diltiazem CD (24hr) [Cardizem CD] 180 mg PO DAILY hydroCHLOROthiazide [Hydrochlorothiazide] 12.5 mg PO DAILY Home Medications: Escitalopram [Lexapro] 20 mg PO DAILY 02/17/18 [History] Estradiol [Estrace] 1 mg PO DAILY 02/17/18 [History] Levothyroxine Sodium [Levoxyl] 150 mcg PO QAM 02/17/18 [History] Gabapentin [Neurontin] 300 mg PO HS 01/22/19 [History] Metformin HCl [Metformin ER Gastric] 500 mg PO DAILY 01/22/19 [History] Apixaban [Eliquis] 5 mg PO BID 06/17/19 [History] Albuterol Sulfate [Ventolin Hfa] 2 puff IH Q6H PRN 07/12/19 [History] Budesonide/Formoterol 160/4.5 [Symbicort 160/4.5] 2 puff IH BID PRN 07/12/19 [History] Ergocalciferol (VITAMIN D2) [Vitamin D2] 50,000 unit PO [place] 07/12/19 [History] LORazepam [Ativan] 0.5 mg PO HS 07/12/19 [History] Metoprolol Succinate [Toprol Xl] 50 mg PO BID 07/12/19 [History] Omeprazole [PriLOSEC] 40 mg PO BID 07/12/19 [History] Aspirin 81 mg PO DAILY #30 tab.chew 07/16/19 [Rx] Atorvastatin [Lipitor] 40 mg PO DAILY #30 tablet 07/16/19 [Rx] Clopidogrel [Plavix] 75 mg PO DAILY #30 tablet 07/16/19 [Rx] dilTIAZem HCl [Diltiazem 24Hr ER] 240 mg PO Q24H #30 cap.er.24h 07/16/19 [Rx] Allergies/Adverse Reactions: Allergy/AdvReac Type Severity Reaction Status Date / Time amitriptyline Allergy Hives Verified 07/12/19 10:33 clarithromycin [From Biaxin] AdvReac Intermediate Vomiting Verified 07/12/19 10:33 oxycodone [From Percocet] AdvReac Vomiting Verified 07/12/19 10:33 risperidone [From Risperdal] AdvReac Hypertensio Verified 07/12/19 10:33 n Biaxin AdvReac Severe Vomiting Uncoded 07/12/19 10:33 Date of admission: 07/13/19 14:37 Primary care physician: Liana Torres CNP Consults: 07/12/19 16:21 Consult to Cardiology [CONS] Routine Comment: Consulting Provider: Cardiology Sonam Reason for Consult: abnormal stress test Call Completed: Yes 07/14/19 14:25 Consult to Cardiac Rehabilitation-Phase1 [CONS] Routine Comment: Reason for Consult: post op PCI Call Completed: Yes - Constitutional Vitals: Temp Pulse Resp BP Pulse Ox 98.5 F 69 18 121/63 94 07/16/19 07:35 07/16/19 07:35 07/16/19 07:35 07/16/19 07:35 07/16/19 07:35 Exam: General: Ill-appearing and in no acute distress HEENT: No erythema of posterior pharynx. No exudates. Lymphatics: No mandibular or cervical lymphadenopathy Cardiovascular: RRR. No murmurs. No chest wall tenderness. Lungs: Clear to auscelltation bilaterally. Regular chest rise. Abdomen: Non-tender. No rebound or gaurding. Nl bowel sounds. Extremities: No edema. 2+ pulses radial and pedal pulses Skin: No rahses, abrasions, or contusions. Nl cap refill. Psych: Nl attention. A&Ox3 Neuro: sous chef II-XII intact. 5/5 strength. Sensation to light touch and pinprick intact. - Patient Status Disposition: Home, Self-Care Condition: Good Functional capacity at discharge: independent ambulation Overall status at discharge: patient is progressing back to baseline - Discharge Instructions Instructions: Atrial Fibrillation (DC), Chest Pain (DC), Left Heart Catheterization (DC), Hypothyroidism (DC), Diabetes Mellitus Type 2 in Adults (DC), Chronic Hypertension (DC), Anemia (GEN), Anxiety (DC) Follow Up With: Liana Torres CNP [Primary Care Provider] - 07/21/19 2:00 pm () - Diet and Activity Activity: increase activity as tolerated Diet: diabetic diet - VTE Reasons for not Prescribing Prophylaxis: Not indicated-Anticoagulated or INR therapeutic
[2019-07-16] MEDS: Diltiazem CD (24hr) 180 MG CAPSULE PO SCH (09:59)
[2019-07-16] MEDS: Isosorbide MONOnitrate (24 HR) 30 MG TAB.ER.24H PO SCH (09:59)
[2019-07-16] MEDS: Apixaban 5 MG TABLET PO SCH (09:59)
[2019-07-16] MEDS: Cholecalciferol (D-3) 1,000 UNIT (25MCG) TABLET PO SCH (09:59)
[2019-07-16] MEDS: Aspirin 81 MG TAB.CHEW PO SCH (09:59)
== END 2019-07-16 11:38 | disposition home or self-care (01) | DRG 247 ==
LOC: 3BNU 20:39 → EMEROOARM 20:39 → 3BNU 07-11 06:30 → 2NENU 07-14 15:41
PROVIDERS: ADMIT Family Medicine; ATTEND Family Medicine

== ENCOUNTER 2019-08-04 17:08 | Observation (INO) ==
[2019-08-04 18:16] LABS: Basophils # 0.1 K/mcL (0.0-0.2); Basophils % 0.8 %; Eosinophils # 0.3 K/mcL (0.0-0.6); Eosinophils % 4.3 %; Hematocrit 31.4 % (35.3-44.9); Hemoglobin 10.7 g/dL (11.5-15.4); Immature Granulocytes % 0.3 % (0-4); Lymphocytes # 2.2 K/mcL (0.6-4.6); Lymphocytes % 27.7 %; Mean Corpuscular HGB Conc 34.1 g/dL (31.6-35.5); Mean Corpuscular Hemoglobin 29.7 pg (28.0-33.3); Mean Corpuscular Volume 87.2 fL (83.0-100.0); Mean Platelet Volume 8.8 fL (9.4-12.4); Monocytes # 0.5 K/mcL (0.0-1.3); Neutrophils # 4.7 K/mcL (1.6-8.9); Platelet Count 343 K/mcL (140-400); Red Cell Distribution Width 12.8 % (11.5-14.5); Segmented Neutrophils % 59.9 %; White Blood Count 7.8 K/mcL (4.3-11.1)
[2019-08-04 18:21] LABS: Prothrombin Time 11.9 Seconds (9.4-12.1)
[2019-08-04 18:23] LABS: Activated Partial Thrombo Time 37.9 Seconds (26.0-36.0)
[2019-08-04 18:29] LABS: BUN/Creatinine Ratio 24 (6-26); Blood Urea Nitrogen 14 mg/dL (6-20); Calcium 9.4 mg/dL (8.6-10.3); Carbon Dioxide 26 mEq/L (23-29); Chloride 105 mEq/L (98-107); Glucose 108 mg/dL (70-105); Osmolality,Calculated 289 (280-300); Potassium 3.6 mEq/L (3.5-5.1); Sodium 139 mEq/L (136-145); Troponin I < 0.03 ng/mL (< 0.04); eGFR For African Americans > 60 (> 60); eGFR For Non-African Americans > 60 (> 60)
[2019-08-04] MEDS ORDERED: Aspirin 81 MG TAB.CHEW PO ONE (19:42)
[2019-08-04] MEDS ORDERED: Morphine Sulfate 2 MG/ML SYRINGE IVP PRN (23:50)
[2019-08-04] MEDS ORDERED: D5% in Water 1,000 ML IVC PRN (23:50)
[2019-08-04] MEDS ORDERED: Dextrose Gel 15 GM/37.5 ML TUBE PO PRN ×2 (23:50)
[2019-08-04] MEDS ORDERED: *HR* Dextrose 50 % in Water (Syg) 50 ML SYRINGE IVP PRN (23:50)
[2019-08-04] MEDS ORDERED: Naloxone 0.4 MG/ML INJ IVP PRN (23:50)
[2019-08-04] MEDS ORDERED: Nitroglycerin 0.4 MG TAB.SUBL SL PRN (23:50)
[2019-08-04] MEDS ORDERED: Budesonide/Formoterol 160/4.5 1 PUFF INH IH PRN (23:54)
[2019-08-05] MEDS: Diltiazem CD (24hr) 240 MG CAPSULE PO SCH ×2 (01:02→13:14)
[2019-08-05] MEDS: Acetaminophen 325 MG TABLET PO PRN ×3 (01:02→21:13)
[2019-08-05] MEDS: Ondansetron ODT 4 MG TAB.RAPDIS SL PRN (01:03)
[2019-08-05] MEDS: Apixaban 5 MG TABLET PO SCH ×3 (01:03→21:05)
[2019-08-05 01:16] LABS: Basophils # 0.1 K/mcL (0.0-0.2); Basophils % 0.6 %; Eosinophils # 0.4 K/mcL (0.0-0.6); Hematocrit 32.1 % (35.3-44.9); Hemoglobin 10.6 g/dL (11.5-15.4); Immature Granulocytes % 0.2 % (0-4); Lymphocytes # 2.4 K/mcL (0.6-4.6); Lymphocytes % 25.9 %; Mean Corpuscular Hemoglobin 28.6 pg (28.0-33.3); Mean Corpuscular Volume 86.8 fL (83.0-100.0); Monocytes # 0.6 K/mcL (0.0-1.3); Monocytes % 6.8 %; Neutrophils # 5.8 K/mcL (1.6-8.9); Platelet Count 355 K/mcL (140-400); Red Cell Distribution Width 12.8 % (11.5-14.5); Segmented Neutrophils % 62.5 %; White Blood Count 9.3 K/mcL (4.3-11.1)
[2019-08-05] MEDS ORDERED: *HR* LORazepam 0.5 MG TABLET PO ONE (01:17)
[2019-08-05] MEDS ORDERED: Gabapentin 300 MG CAPSULE PO ONE (01:19)
[2019-08-05 01:23] LABS: Prothrombin Time 11.3 Seconds (9.4-12.1)
[2019-08-05 01:25] LABS: Alanine Aminotransferase 17 Units/L (7-52); Albumin 4.1 g/dL (3.5-5.7); Albumin/Globulin Ratio 1.6 (1.1-2.2); Alkaline Phosphatase 68 Units/L (34-104); Aspartate Amino Transferase 16 Units/L (13-39); BUN/Creatinine Ratio 25 (6-26); Bilirubin,Total 0.5 mg/dL (0.3-1.0); Blood Urea Nitrogen 13 mg/dL (6-20); Calcium 9.4 mg/dL (8.6-10.3); Carbon Dioxide 23 mEq/L (23-29); Chloride 107 mEq/L (98-107); Globulin 2.6 g/dL (2.4-3.5); Glucose 99 mg/dL (70-105); Magnesium 1.9 mg/dL (1.6-2.6); Osmolality,Calculated 292 (280-300); Phosphorous 3.9 mg/dL (2.7-4.5); Potassium 3.4 mEq/L (3.5-5.1); Sodium 141 mEq/L (136-145); Total Protein 6.7 g/dL (6.4-8.9); eGFR For African Americans > 60 (> 60); eGFR For Non-African Americans > 60 (> 60)
[2019-08-05 02:12] LABS: Amphetamine Screen,Urine Negative ng/mL (Cutoff=1000); Barbiturate Screen,Urine Negative ng/mL (Cutoff=200); Benzodiazepines Screen,Urine Negative ng/mL (Cutoff=200); Cannabinoid Screen,Urine Negative ng/mL (Cutoff = 50); Cocaine Screen,Urine Negative ng/mL (Cutoff= 300); Opiate Screen,Urine Negative ng/mL (Cutoff=300); Phencyclidine Screen,Urine Negative ng/mL (Cutoff=25)
[2019-08-05] MEDS ORDERED: Isosorbide MONOnitrate (24 HR) 30 MG TAB.ER.24H PO ONE (13:05)
[2019-08-05] MEDS: Metoprolol XL (24 HR) Succ 50 MG TAB.ER.24H PO SCH (13:12)
[2019-08-05] MEDS: Cholecalciferol (D-3) 1,000 UNIT (25MCG) TABLET PO SCH (13:13)
[2019-08-05] MEDS: Aspirin 81 MG TAB.CHEW PO SCH (13:13)
[2019-08-05] MEDS: Isosorbide MONOnitrate (24 HR) 30 MG TAB.ER.24H PO SCH (13:13)
[2019-08-05] MEDS: Gabapentin 300 MG CAPSULE PO SCH (21:05)
[2019-08-05] MEDS: *HR* LORazepam 0.5 MG TABLET PO SCH (21:05)
[2019-08-05] MEDS: Budesonide/Formoterol 160/4.5 1 PUFF INH IH SCH (22:04)
[2019-08-06] MEDS ORDERED: Isosorbide MONOnitrate (24 HR) 60 MG TAB.ER.24H PO SCH (09:00)
[2019-08-06] MEDS: Apixaban 5 MG TABLET PO SCH ×2 (09:11→20:29)
[2019-08-06] MEDS: Isosorbide MONOnitrate (24 HR) 30 MG TAB.ER.24H PO SCH (09:11)
[2019-08-06] MEDS: Diltiazem CD (24hr) 240 MG CAPSULE PO SCH (09:12)
[2019-08-06] MEDS: Aspirin 81 MG TAB.CHEW PO SCH (09:12)
[2019-08-06] MEDS: Metoprolol XL (24 HR) Succ 50 MG TAB.ER.24H PO SCH (09:12)
[2019-08-06] MEDS: Cholecalciferol (D-3) 1,000 UNIT (25MCG) TABLET PO SCH (09:12)
[2019-08-06] MEDS: Budesonide/Formoterol 160/4.5 1 PUFF INH IH SCH ×2 (11:12→21:42)
[2019-08-06] MEDS: Acetaminophen 325 MG TABLET PO PRN (13:55)
[2019-08-06] MEDS ORDERED: Acetaminophen 325 MG TABLET PO PRN (13:58)
[2019-08-06] MEDS: Gabapentin 300 MG CAPSULE PO SCH (20:29)
[2019-08-06] MEDS: *HR* LORazepam 0.5 MG TABLET PO SCH (20:30)
[2019-08-06] MEDS: Ondansetron ODT 4 MG TAB.RAPDIS SL PRN (22:21)
[2019-08-07 05:37] LABS: Chol/HDL Ratio 4.6 (0-4.9)
[2019-08-07 07:16] VITALS: BP 126/69
[2019-08-07] MEDS: Budesonide/Formoterol 160/4.5 1 PUFF INH IH SCH (07:37)
[2019-08-07] MEDS: Aspirin 81 MG TAB.CHEW PO SCH (08:19)
[2019-08-07] MEDS: Apixaban 5 MG TABLET PO SCH (08:19)
[2019-08-07] MEDS: Metoprolol XL (24 HR) Succ 50 MG TAB.ER.24H PO SCH (08:20)
[2019-08-07] MEDS: Diltiazem CD (24hr) 240 MG CAPSULE PO SCH (08:21)
[2019-08-07] MEDS: Cholecalciferol (D-3) 1,000 UNIT (25MCG) TABLET PO SCH (08:21)
[2019-08-07] MEDS ORDERED: Isosorbide MONOnitrate (24 HR) 60 MG TAB.ER.24H PO SCH (09:00)
== END 2019-08-07 13:19 | disposition home or self-care (01) ==
LOC: 3BNU 17:08 → EMEROOARM 17:08 → SUATTDRO 21:24 → 3BNU 22:00
PROVIDERS: ADMIT Family Medicine; ATTEND Family Medicine

== ENCOUNTER 2019-09-14 10:32 | Observation (INO) ==
[2019-09-14 11:04] LABS: Basophils # 0.1 K/mcL (0.0-0.2); Basophils % 0.5 %; Eosinophils # 0.2 K/mcL (0.0-0.6); Eosinophils % 1.9 %; Hematocrit 33.7 % (35.3-44.9); Hemoglobin 11.6 g/dL (11.5-15.4); Immature Granulocytes % 0.6 % (0-4); Lymphocytes # 2.3 K/mcL (0.6-4.6); Lymphocytes % 19.9 %; Mean Corpuscular HGB Conc 34.4 g/dL (31.6-35.5); Mean Corpuscular Hemoglobin 29.4 pg (28.0-33.3); Mean Corpuscular Volume 85.5 fL (83.0-100.0); Mean Platelet Volume 8.8 fL (9.4-12.4); Monocytes # 0.8 K/mcL (0.0-1.3); Monocytes % 6.8 %; Neutrophils # 8.2 K/mcL (1.6-8.9); Platelet Count 509 K/mcL (140-400); Red Blood Count 3.94 M/mcL (3.82-4.97); Red Cell Distribution Width 12.6 % (11.5-14.5); Segmented Neutrophils % 70.3 %; White Blood Count 11.6 K/mcL (4.3-11.1)
[2019-09-14 11:10] LABS: INR 1.3; Prothrombin Time 14.3 Seconds (9.4-12.1)
[2019-09-14 11:12] LABS: Activated Partial Thrombo Time 37.9 Seconds (26.0-36.0)
[2019-09-14 11:27] LABS: BUN/Creatinine Ratio 23 (6-26); Blood Urea Nitrogen 14 mg/dL (6-20); Calcium 9.9 mg/dL (8.6-10.3); Carbon Dioxide 23 mEq/L (23-29); Chloride 103 mEq/L (98-107); Glucose 134 mg/dL (70-105); Osmolality,Calculated 286 (280-300); Sodium 137 mEq/L (136-145); Troponin I < 0.03 ng/mL (< 0.04); eGFR For African Americans > 60 (> 60); eGFR For Non-African Americans > 60 (> 60)
[2019-09-14] MEDS ORDERED: Ondansetron 4 MG/2 ML VIAL IVP PRN ×2 (11:42→13:56)
[2019-09-14] MEDS ORDERED: Aspirin 81 MG TAB.CHEW PO ONE (12:12)
[2019-09-14] MEDS ORDERED: GI Cocktail 40 ML EACH PO ONE (12:57)
[2019-09-14] MEDS ORDERED: Naloxone 0.4 MG/ML INJ IVP PRN (13:56)
[2019-09-14] MEDS ORDERED: Nitroglycerin 0.4 MG TAB.SUBL SL PRN (13:58)
[2019-09-14] MEDS ORDERED: D5% in Water 1,000 ML IVC PRN (14:23)
[2019-09-14] MEDS ORDERED: *HR* Dextrose 50 % in Water (Syg) 50 ML SYRINGE IVP PRN (14:23)
[2019-09-14] MEDS ORDERED: Dextrose Gel 15 GM/37.5 ML TUBE PO PRN ×2 (14:23)
[2019-09-14] MEDS: Insulin LISPRO 300 UNITS/3 ML VIAL SQ SCH (17:34)
[2019-09-14] MEDS ORDERED: Famotidine 20 MG TABLET PO PRN (17:59)
[2019-09-14] MEDS ORDERED: Furosemide 20 MG TABLET PO PRN (17:59)
[2019-09-14] MEDS ORDERED: Diltiazem CD (24hr) 240 MG CAPSULE PO SCH (18:00)
[2019-09-14] MEDS: Budesonide/Formoterol 160/4.5 1 PUFF INH IH SCH (20:15)
[2019-09-14] MEDS: *HR* LORazepam 1 MG TABLET PO PRN (21:28)
[2019-09-14] MEDS: Gabapentin 300 MG CAPSULE PO SCH (21:29)
[2019-09-14] MEDS: Apixaban 5 MG TABLET PO SCH (21:29)
[2019-09-15 06:02] LABS: Basophils # 0.1 K/mcL (0.0-0.2); Basophils % 0.6 %; Eosinophils # 0.2 K/mcL (0.0-0.6); Eosinophils % 2.4 %; Hematocrit 32.6 % (35.3-44.9); Hemoglobin 10.7 g/dL (11.5-15.4); Immature Granulocytes % 0.4 % (0-4); Lymphocytes # 2.5 K/mcL (0.6-4.6); Lymphocytes % 24.7 %; Mean Corpuscular HGB Conc 32.8 g/dL (31.6-35.5); Mean Corpuscular Hemoglobin 28.9 pg (28.0-33.3); Mean Corpuscular Volume 88.1 fL (83.0-100.0); Mean Platelet Volume 8.8 fL (9.4-12.4); Monocytes # 0.8 K/mcL (0.0-1.3); Monocytes % 7.6 %; Neutrophils # 6.4 K/mcL (1.6-8.9); Platelet Count 391 K/mcL (140-400); Red Cell Distribution Width 12.8 % (11.5-14.5); Segmented Neutrophils % 64.3 %
[2019-09-15 06:32] LABS: BUN/Creatinine Ratio 16 (6-26); Blood Urea Nitrogen 12 mg/dL (6-20); Calcium 9.5 mg/dL (8.6-10.3); Carbon Dioxide 26 mEq/L (23-29); Chloride 105 mEq/L (98-107); Glucose 110 mg/dL (70-105); Osmolality,Calculated 292 (280-300); Potassium 3.8 mEq/L (3.5-5.1); Sodium 141 mEq/L (136-145); eGFR For African Americans > 60 (> 60); eGFR For Non-African Americans > 60 (> 60)
[2019-09-15] MEDS: Budesonide/Formoterol 160/4.5 1 PUFF INH IH SCH ×2 (07:26→20:35)
[2019-09-15] MEDS: Insulin LISPRO 300 UNITS/3 ML VIAL SQ SCH ×3 (08:01→17:03)
[2019-09-15 08:39] LABS: Alanine Aminotransferase 18 Units/L (7-52); Albumin 4.2 g/dL (3.5-5.7); Albumin/Globulin Ratio 1.4 (1.1-2.2); Alkaline Phosphatase 78 Units/L (34-104); Aspartate Amino Transferase 13 Units/L (13-39); Bilirubin,Direct 0.1 mg/dL (0.0-0.2); Bilirubin,Indirect 0.5 mg/dL (0.0-1.0); Bilirubin,Total 0.6 mg/dL (0.3-1.0); Globulin 2.9 g/dL (2.4-3.5); Lipase 6 Units/L (11-82); Total Protein 7.1 g/dL (6.4-8.9)
[2019-09-15] MEDS: Isosorbide MONOnitrate (24 HR) 60 MG TAB.ER.24H PO SCH (08:58)
[2019-09-15] MEDS: Apixaban 5 MG TABLET PO SCH (08:59)
[2019-09-15] MEDS: Ranolazine 500 MG TAB.ER.12H PO SCH ×2 (10:53→21:02)
[2019-09-15] MEDS: Metoprolol XL (24 HR) Succ 50 MG TAB.ER.24H PO SCH (10:53)
[2019-09-15] MEDS ORDERED: Acetaminophen 325 MG TABLET PO SCH (18:00)
[2019-09-15] MEDS: Gabapentin 300 MG CAPSULE PO SCH (21:02)
[2019-09-15] MEDS: *HR* LORazepam 1 MG TABLET PO PRN (21:02)
[2019-09-15] MEDS: Ondansetron ODT 4 MG TAB.RAPDIS PO PRN (21:29)
[2019-09-16] MEDS: Acetaminophen 325 MG TABLET PO PRN ×3 (00:27→20:01)
[2019-09-16] MEDS: Budesonide/Formoterol 160/4.5 1 PUFF INH IH SCH ×2 (07:21→19:53)
[2019-09-16] MEDS: Insulin LISPRO 300 UNITS/3 ML VIAL SQ SCH ×3 (09:20→16:48)
[2019-09-16] MEDS ORDERED: *HR* Heparin 10,000 UNIT/10 ML VIAL ONE (09:58)
[2019-09-16] MEDS ORDERED: ISOVUE-370 200 ML INFUS..BTL ONE (09:58)
[2019-09-16] MEDS ORDERED: Heparin 1,000 UNITS/500 mL 500 ML ONE (09:58)
[2019-09-16] MEDS ORDERED: Nitroglycerin 1,000 MCG/10 ML VIAL IV ONE (09:58)
[2019-09-16] MEDS ORDERED: 0.9 % Sodium Chloride 2,000 ML ONE (09:58)
[2019-09-16] MEDS ORDERED: *HR* Midazolam HCl 2 MG/2 ML VIAL ONE (10:04)
[2019-09-16] MEDS ORDERED: *HR* FentaNYL (PF) 100 MCG/2 ML VIAL ONE (10:35)
[2019-09-16] MEDS: Ranolazine 500 MG TAB.ER.12H PO SCH ×2 (11:47→21:35)
[2019-09-16] MEDS: Isosorbide MONOnitrate (24 HR) 60 MG TAB.ER.24H PO SCH (11:47)
[2019-09-16] MEDS: Metoprolol XL (24 HR) Succ 50 MG TAB.ER.24H PO SCH (11:47)
[2019-09-16] MEDS: Sucralfate 1 GM TABLET PO SCH ×2 (16:49→21:35)
[2019-09-16] MEDS: Ondansetron ODT 4 MG TAB.RAPDIS PO PRN (20:03)
[2019-09-16] MEDS: Apixaban 5 MG TABLET PO SCH (21:35)
[2019-09-16] MEDS: Gabapentin 300 MG CAPSULE PO SCH (21:36)
[2019-09-16] MEDS: *HR* LORazepam 1 MG TABLET PO PRN (21:36)
[2019-09-17] MEDS: Sucralfate 1 GM TABLET PO SCH ×2 (05:47→12:49)
[2019-09-17] MEDS: Acetaminophen 325 MG TABLET PO PRN (05:50)
[2019-09-17] MEDS: Budesonide/Formoterol 160/4.5 1 PUFF INH IH SCH (07:28)
[2019-09-17 08:10] VITALS: BP 116/72
[2019-09-17] MEDS: Insulin LISPRO 300 UNITS/3 ML VIAL SQ SCH ×2 (09:11→12:50)
[2019-09-17] MEDS: Metoprolol XL (24 HR) Succ 50 MG TAB.ER.24H PO SCH (09:13)
[2019-09-17] MEDS: Ranolazine 500 MG TAB.ER.12H PO SCH (09:14)
[2019-09-17] MEDS: Apixaban 5 MG TABLET PO SCH (09:14)
[2019-09-17] MEDS: Isosorbide MONOnitrate (24 HR) 60 MG TAB.ER.24H PO SCH (09:14)
== END 2019-09-17 12:56 | disposition home or self-care (01) ==
LOC: EMEROOARM 10:32 → CDU 10:32 → SUATTDRO 13:59 → CDU 14:25 → 3BNU 09-15 14:07
PROVIDERS: ADMIT Family Medicine; ATTEND Internal Medicine

== ENCOUNTER 2020-12-04 15:59 | Observation (INO) ==
[2020-12-04] MEDS ORDERED: Aspirin 325 MG TABLET PO ONE (16:16)
[2020-12-04] MEDS ORDERED: Ketorolac 15 MG/ML VIAL IVP ONE (16:16)
[2020-12-04 16:27] LABS: Basophils # 0.1 K/mcL (0.0-0.2); Basophils % 0.7 %; Eosinophils # 0.2 K/mcL (0.0-0.6); Eosinophils % 1.6 %; Hematocrit 36.3 % (35.3-44.9); Immature Granulocytes % 0.4 % (0-4); Lymphocytes # 2.8 K/mcL (0.6-4.6); Lymphocytes % 25.4 %; Mean Corpuscular HGB Conc 33.1 g/dL (31.6-35.5); Mean Corpuscular Hemoglobin 29.1 pg (28.0-33.3); Mean Corpuscular Volume 87.9 fL (83.0-100.0); Mean Platelet Volume 8.8 fL (9.4-12.4); Monocytes # 0.7 K/mcL (0.0-1.3); Monocytes % 6.6 %; Neutrophils # 7.2 K/mcL (1.6-8.9); Platelet Count 376 K/mcL (140-400); Red Blood Count 4.13 M/mcL (3.82-4.97); Red Cell Distribution Width 12.8 % (11.5-14.5); Segmented Neutrophils % 65.3 %
[2020-12-04 16:45] LABS: BUN/Creatinine Ratio 19 (6-26); Blood Urea Nitrogen 12 mg/dL (6-20); Calcium 9.7 mg/dL (8.6-10.3); Carbon Dioxide 24 mEq/L (23-29); Chloride 104 mEq/L (98-107); Glucose 129 mg/dL (70-105); Osmolality,Calculated 287 (280-300); Potassium 3.9 mEq/L (3.5-5.1); Sodium 138 mEq/L (136-145); eGFR For African Americans > 60 (> 60); eGFR For Non-African Americans > 60 (> 60)
[2020-12-04 16:46] LABS: Troponin I < 0.03 ng/mL (< 0.04)
[2020-12-04 16:59] LABS: Thyroid Stimulating Hormone 2.336 mcIU/mL (0.340-5.600)
[2020-12-04] MEDS ORDERED: Perflutren Lipid Microsphere 1.3 ML in 0.9 % Sodium Chloride 8.7 ML IVP PRN (17:59)
[2020-12-04] MEDS ORDERED: Dextrose Gel 15 GM/37.5 ML TUBE PO PRN ×2 (18:00)
[2020-12-04] MEDS ORDERED: D5% in Water 1,000 ML IVC PRN (18:00)
[2020-12-04] MEDS ORDERED: *HR* Dextrose 50 % in Water (Vial) 50 ML VIAL IVP PRN (18:00)
[2020-12-04] MEDS ORDERED: Naloxone 0.4 MG/ML INJ IVP PRN (18:06)
[2020-12-04] MEDS ORDERED: Acetaminophen 325 MG TABLET PO PRN (18:07)
[2020-12-04] MEDS ORDERED: *HR* LORazepam 1 MG TABLET PO PRN (18:10)
[2020-12-04] MEDS ORDERED: Furosemide 20 MG TABLET PO PRN (18:10)
[2020-12-04] MEDS: Budesonide/Formoterol 160/4.5 1 PUFF INH IH SCH (20:19)
[2020-12-04] MEDS ORDERED: Famotidine 20 MG TABLET PO SCH (21:00)
[2020-12-04] MEDS ORDERED: Insulin LISPRO 300 UNITS/3 ML VIAL SUBQ SCH (21:00)
[2020-12-04] MEDS ORDERED: Baclofen 10 MG TABLET PO SCH (21:00)
[2020-12-04] MEDS ORDERED: Gabapentin 300 MG CAPSULE PO SCH (21:00)
[2020-12-04] MEDS ORDERED: traZODone 50 MG TABLET PO SCH (21:00)
[2020-12-04] MEDS ORDERED: Apixaban 5 MG TABLET PO SCH (21:00)
[2020-12-04] MEDS ORDERED: *HR* Heparin 5,000 UNIT/ML VIAL IVP PRN ×2 (22:00)
[2020-12-04] MEDS ORDERED: *HR* Heparin 5,000 UNIT/ML VIAL IVP ONE (22:00)
[2020-12-04] MEDS ORDERED: Heparin 25,000UNIT/250ML 1/2NS 25,000 UNIT/250 ML IV.SOLN IVC SCH ×2 (22:00)
[2020-12-05] MEDS: Insulin LISPRO 300 UNITS/3 ML VIAL SUBQ SCH ×7 (00:56→16:34)
[2020-12-05] MEDS ORDERED: *HR* HYDROcodone/Acet 5/325 mg TABLET PO ONE (04:16)
[2020-12-05 05:11] LABS: Hematocrit 34.2 % (35.3-44.9); Hemoglobin 11.2 g/dL (11.5-15.4); Mean Corpuscular HGB Conc 32.7 g/dL (31.6-35.5); Mean Corpuscular Hemoglobin 28.9 pg (28.0-33.3); Mean Corpuscular Volume 88.4 fL (83.0-100.0); Mean Platelet Volume 8.9 fL (9.4-12.4); Platelet Count 331 K/mcL (140-400); Red Blood Count 3.87 M/mcL (3.82-4.97); Red Cell Distribution Width 12.9 % (11.5-14.5); White Blood Count 8.9 K/mcL (4.3-11.1)
[2020-12-05 05:14] LABS: INR 1.1; Prothrombin Time 12.9 Seconds (9.4-12.1)
[2020-12-05 05:15] LABS: Activated Partial Thrombo Time 43.6 Seconds (26.0-36.0)
[2020-12-05 05:29] LABS: BUN/Creatinine Ratio 20 (6-26); Blood Urea Nitrogen 13 mg/dL (6-20); Calcium 9.6 mg/dL (8.6-10.3); Carbon Dioxide 25 mEq/L (23-29); Chloride 107 mEq/L (98-107); Chol/HDL Ratio 4.1 (0-4.9); Cholesterol 138 mg/dL (< 200); Glucose 127 mg/dL (70-105); HDL Cholesterol 34 mg/dL (40-59); LDL Cholesterol,Calculated 53 mg/dL (< 100); Osmolality,Calculated 294 (280-300); Potassium 3.6 mEq/L (3.5-5.1); Sodium 141 mEq/L (136-145); Triglycerides 253 mg/dL (< 150); eGFR For African Americans > 60 (> 60); eGFR For Non-African Americans > 60 (> 60)
[2020-12-05] MEDS ORDERED: Regadenoson 0.4 MG/5 ML SYRINGE IVP ONE (06:29)
[2020-12-05 08:33] LABS: Estimated Average Glucose 137 mg/dl; Hemoglobin A1C 6.4 %
[2020-12-05] MEDS ORDERED: Isosorbide MONOnitrate (24 HR) 60 MG TAB.ER.24H PO SCH (09:00)
[2020-12-05] MEDS ORDERED: Cholecalciferol (D-3) 1,000 UNIT (25MCG) TABLET PO SCH (09:00)
[2020-12-05] MEDS ORDERED: *HR* GlipiZIDE XL (24 HR) 10 MG TABLET PO SCH (09:00)
[2020-12-05] MEDS ORDERED: Aspirin Enteric Coated 81 MG Tablet PO SCH (09:00)
[2020-12-05] MEDS ORDERED: Ascorbic Acid 500 MG TABLET PO SCH (09:00)
[2020-12-05 10:45] VITALS: BP 121/73
[2020-12-05] MEDS ORDERED: Metoprolol XL (24 HR) Succ 50 MG TAB.ER.24H PO SCH (10:45)
[2020-12-05] MEDS ORDERED: GI Cocktail 40 ML EACH PO ONE (10:52)
[2020-12-05] MEDS: Budesonide/Formoterol 160/4.5 1 PUFF INH IH SCH (11:05)
[2020-12-05] MEDS ORDERED: Ranolazine 500 MG TAB.ER.12H PO SCH (15:16)
[2020-12-05] MEDS ORDERED: Apixaban 5 MG TABLET PO SCH (21:00)
== END 2020-12-05 17:14 | disposition home or self-care (01) ==
LOC: 3BNU 15:59 → EMEROOARM 15:59 → SUATTDRO 17:50 → 3BNU 19:25
PROVIDERS: ADMIT Internal Medicine; ATTEND Internal Medicine

== ENCOUNTER 2021-03-01 10:37 | Observation (INO) ==
[2021-03-01 12:53] LABS: Hematocrit 37.1 % (35.3-44.9); Hemoglobin 12.1 g/dL (11.5-15.4); Mean Corpuscular HGB Conc 32.6 g/dL (31.6-35.5); Mean Corpuscular Hemoglobin 29.2 pg (28.0-33.3); Mean Corpuscular Volume 89.4 fL (83.0-100.0); Mean Platelet Volume 8.8 fL (9.4-12.4); Platelet Count 377 K/mcL (140-400); Red Blood Count 4.15 M/mcL (3.82-4.97); Red Cell Distribution Width 12.8 % (11.5-14.5); White Blood Count 9.3 K/mcL (4.3-11.1)
[2021-03-01 13:12] LABS: BUN/Creatinine Ratio 23 (6-26); Blood Urea Nitrogen 15 mg/dL (6-20); Calcium 9.7 mg/dL (8.6-10.3); Carbon Dioxide 25 mEq/L (23-29); Chloride 102 mEq/L (98-107); Glucose 109 mg/dL (70-105); Osmolality,Calculated 285 (280-300); Sodium 137 mEq/L (136-145); Troponin I < 0.03 ng/mL (< 0.04); eGFR For African Americans > 60 (> 60); eGFR For Non-African Americans > 60 (> 60)
[2021-03-01 13:16] LABS: Bacteria,Urine Few per hpf (None-Few); Bilirubin,Urine Negative (Negative); Blood,Urine Negative (Negative); Clarity,Urine Clear (Clear); Color,Urine Light-Yellow (Yellow); Glucose,Urine (UA) >=1000 mg/dL (Normal); Ketones,Urine Negative (Negative); Leukocyte Esterase,Urine Negative (Negative); Nitrite,Urine Negative (Negative); PH,Urine 6.5 pH Units (5.0-8.0); Protein,Urine Trace mg/dL (Neg-Trace); RBC,Urine 0-3 per hpf (0-3); Specific Gravity,Urine 1.016 (1.010-1.025); Squamous Epithelial Cell,Urine Moderate per hpf (None-Few); Urobilinogen,Urine Normal (Normal); WBC,Urine 0-3 per hpf (0-3)
[2021-03-01] MEDS ORDERED: Naloxone 0.4 MG/ML INJ IVP PRN (16:17)
[2021-03-01] MEDS ORDERED: Levalbuterol 1 PUFF INHALER IH PRN (18:09)
[2021-03-01] MEDS ORDERED: *HR* LORazepam 1 MG TABLET PO PRN (18:09)
[2021-03-01] MEDS ORDERED: Ondansetron ODT 4 MG TAB.RAPDIS PO PRN (18:09)
[2021-03-01] MEDS ORDERED: Furosemide 20 MG TABLET PO PRN (18:09)
[2021-03-01] MEDS ORDERED: Isovue-370 500 ML BOTTLE IVP ONE (18:37)
[2021-03-01] MEDS ORDERED: Perflutren Lipid Microsphere 1.3 ML in 0.9 % Sodium Chloride 8.7 ML IVP PRN (18:39)
[2021-03-01] MEDS ORDERED: TRIAZOLAM 0.25 MG PO PRN (18:46)
[2021-03-01] MEDS: Budesonide/Formoterol 160/4.5 1 PUFF INH IH SCH (20:19)
[2021-03-01] MEDS ORDERED: Famotidine 20 MG TABLET PO SCH (21:00)
[2021-03-01] MEDS ORDERED: traZODone 50 MG TABLET PO SCH (21:00)
[2021-03-01] MEDS: Acetaminophen 325 MG TABLET PO PRN (21:51)
[2021-03-01] MEDS: Ranolazine 500 MG TAB.ER.12H PO SCH (21:52)
[2021-03-01] MEDS: Apixaban 5 MG TABLET PO SCH (21:52)
[2021-03-01] MEDS ORDERED: Gabapentin 300 MG CAPSULE PO SCH (22:15)
[2021-03-02 02:18] LABS: Basophils # 0.1 K/mcL (0.0-0.2); Basophils % 0.6 %; Eosinophils # 0.2 K/mcL (0.0-0.6); Hematocrit 36.4 % (35.3-44.9); Hemoglobin 12.2 g/dL (11.5-15.4); Immature Granulocytes % 0.6 % (0-4); Lymphocytes # 2.9 K/mcL (0.6-4.6); Lymphocytes % 27.7 %; Mean Corpuscular HGB Conc 33.5 g/dL (31.6-35.5); Mean Corpuscular Hemoglobin 29.8 pg (28.0-33.3); Mean Platelet Volume 8.9 fL (9.4-12.4); Monocytes # 0.8 K/mcL (0.0-1.3); Monocytes % 7.6 %; Neutrophils # 6.3 K/mcL (1.6-8.9); Platelet Count 369 K/mcL (140-400); Red Blood Count 4.09 M/mcL (3.82-4.97); Red Cell Distribution Width 12.7 % (11.5-14.5); Segmented Neutrophils % 61.5 %; White Blood Count 10.3 K/mcL (4.3-11.1)
[2021-03-02 02:37] LABS: Chol/HDL Ratio 4.5 (0-4.9)
[2021-03-02 02:40] LABS: BUN/Creatinine Ratio 23 (6-26); Blood Urea Nitrogen 15 mg/dL (6-20); Calcium 9.6 mg/dL (8.6-10.3); Carbon Dioxide 24 mEq/L (23-29); Chloride 104 mEq/L (98-107); Glucose 93 mg/dL (70-105); Osmolality,Calculated 287 (280-300); Potassium 3.7 mEq/L (3.5-5.1); Sodium 138 mEq/L (136-145); eGFR For African Americans > 60 (> 60); eGFR For Non-African Americans > 60 (> 60)
[2021-03-02 05:04] LABS: Estimated Average Glucose 120 mg/dl; Hemoglobin A1C 5.8 %
[2021-03-02] MEDS: Acetaminophen 325 MG TABLET PO PRN ×2 (07:03→15:35)
[2021-03-02] MEDS: Apixaban 5 MG TABLET PO SCH (08:35)
[2021-03-02] MEDS: Ranolazine 500 MG TAB.ER.12H PO SCH (08:35)
[2021-03-02] MEDS ORDERED: Isosorbide MONOnitrate (24 HR) 60 MG TAB.ER.24H PO SCH (09:00)
[2021-03-02] MEDS ORDERED: Aspirin Enteric Coated 81 MG Tablet PO SCH (09:00)
[2021-03-02] MEDS ORDERED: Zinc Sulfate 220 MG CAPSULE PO SCH (09:00)
[2021-03-02] MEDS ORDERED: Metoprolol XL (24 HR) Succ 50 MG TAB.ER.24H PO SCH (09:00)
[2021-03-02] MEDS ORDERED: Ascorbic Acid 500 MG TABLET PO SCH (09:00)
[2021-03-02] MEDS ORDERED: NON-FORMULARY MEDICATION 1 EACH EACH (Escitalopram Oxalate 5 MG Tablet) PO SCH (09:00)
[2021-03-02] MEDS ORDERED: Gabapentin 300 MG CAPSULE PO SCH (09:00)
[2021-03-02] MEDS ORDERED: Cholecalciferol (D-3) 1,000 UNIT (25MCG) TABLET PO SCH (09:00)
[2021-03-02] MEDS: Budesonide/Formoterol 160/4.5 1 PUFF INH IH SCH ×2 (11:06→20:00)
[2021-03-02 11:51] LABS: Thyroid Stimulating Hormone 2.013 mcIU/mL (0.340-5.600)
[2021-03-02 12:07] LABS: Folate > 22.3 ng/mL (3.0-16.0); Vitamin B12 481 pg/mL (250-1100)
[2021-03-02 12:12] LABS: Magnesium 2.1 mg/dL (1.6-2.6)
[2021-03-02 15:26] VITALS: BP 119/54
== END 2021-03-02 19:15 | disposition home or self-care (01) ==
LOC: EMEROOARM 10:37 → 3BNU 10:37
PROVIDERS: ADMIT Internal Medicine; ATTEND Internal Medicine

== ENCOUNTER 2021-12-10 16:57 | Observation (INO) ==
[2021-12-10 17:55] LABS: Basophils # 0.1 K/mcL (0.0-0.2); Basophils % 0.7 %; Eosinophils # 0.2 K/mcL (0.0-0.6); Eosinophils % 1.8 %; Hematocrit 35.8 % (35.3-44.9); Immature Granulocytes % 0.4 % (0-4); Lymphocytes # 2.6 K/mcL (0.6-4.6); Lymphocytes % 25.7 %; Mean Corpuscular HGB Conc 33.5 g/dL (31.6-35.5); Mean Corpuscular Hemoglobin 29.9 pg (28.0-33.3); Mean Corpuscular Volume 89.1 fL (83.0-100.0); Mean Platelet Volume 8.6 fL (9.4-12.4); Monocytes # 0.6 K/mcL (0.0-1.3); Monocytes % 6.1 %; Neutrophils # 6.5 K/mcL (1.6-8.9); Platelet Count 368 K/mcL (140-400); Red Blood Count 4.02 M/mcL (3.82-4.97); Red Cell Distribution Width 12.3 % (11.5-14.5); Segmented Neutrophils % 65.3 %; White Blood Count 9.9 K/mcL (4.3-11.1)
[2021-12-10 18:16] LABS: BUN/Creatinine Ratio 13 (6-26); Blood Urea Nitrogen 8 mg/dL (6-20); Carbon Dioxide 25 mEq/L (23-29); Chloride 104 mEq/L (98-107); Glucose 89 mg/dL (70-105); Osmolality,Calculated 284 (280-300); Potassium 3.6 mEq/L (3.5-5.1); Sodium 138 mEq/L (136-145); eGFR For African Americans > 60 (> 60); eGFR For Non-African Americans > 60 (> 60)
[2021-12-10 18:17] LABS: Troponin I < 0.03 ng/mL (< 0.04)
[2021-12-10 18:32] LABS: Influenza A PCR Negative (Negative); Influenza B PCR Negative (Negative); Resp. Syncytial Virus PCR Negative (Negative); SARS-CoV-2 by PCR (In House) Negative (Negative)
[2021-12-10] MEDS ORDERED: Ondansetron ODT 4 MG TAB.RAPDIS SL PRN (19:29)
[2021-12-10] MEDS ORDERED: Naloxone 0.4 MG/ML INJ IVP PRN (19:29)
[2021-12-10] MEDS ORDERED: Melatonin 3 MG TABLET PO PRN (19:29)
[2021-12-10] MEDS ORDERED: 0.9 % Sodium Chloride 1,000 ML IVC SCH (19:30)
[2021-12-10] MEDS ORDERED: Perflutren Lipid Microsphere 1.3 ML in 0.9 % Sodium Chloride 8.7 ML IVP PRN (19:35)
[2021-12-10] MEDS ORDERED: Nitroglycerin 0.4 MG TAB.SUBL SL PRN (19:38)
[2021-12-10] MEDS ORDERED: Aspirin Enteric Coated 81 MG Tablet PO ONE ×2 (20:00→23:30)
[2021-12-10 20:21] LABS: Estimated Average Glucose 103 mg/dl; Hemoglobin A1C 5.2 %
[2021-12-10 20:47] LABS: Thyroid Stimulating Hormone 1.349 mcIU/mL (0.340-5.600)
[2021-12-10] MEDS ORDERED: traZODone 50 MG TABLET PO SCH (22:30)
[2021-12-10] MEDS: Apixaban 5 MG TABLET PO SCH (22:45)
[2021-12-10] MEDS: Acetaminophen 325 MG TABLET PO PRN (22:57)
[2021-12-10] MEDS ORDERED: Gabapentin 300 MG CAPSULE PO SCH (23:39)
[2021-12-11 03:40] LABS: Hematocrit 33.7 % (35.3-44.9); Hemoglobin 11.2 g/dL (11.5-15.4); Mean Corpuscular HGB Conc 33.2 g/dL (31.6-35.5); Mean Corpuscular Hemoglobin 29.6 pg (28.0-33.3); Mean Corpuscular Volume 89.2 fL (83.0-100.0); Mean Platelet Volume 8.7 fL (9.4-12.4); Platelet Count 319 K/mcL (140-400); Red Blood Count 3.78 M/mcL (3.82-4.97); Red Cell Distribution Width 12.3 % (11.5-14.5); White Blood Count 9.6 K/mcL (4.3-11.1)
[2021-12-11 04:02] LABS: BUN/Creatinine Ratio 16 (6-26); Blood Urea Nitrogen 9 mg/dL (6-20); Calcium 9.2 mg/dL (8.6-10.3); Carbon Dioxide 26 mEq/L (23-29); Chloride 107 mEq/L (98-107); Chol/HDL Ratio 2.9 (0-4.9); Cholesterol 109 mg/dL (< 200); Glucose 130 mg/dL (70-105); HDL Cholesterol 37 mg/dL (40-59); LDL Cholesterol,Calculated 38 mg/dL (< 100); Magnesium 2.2 mg/dL (1.6-2.6); Osmolality,Calculated 290 (280-300); Phosphorous 4.1 mg/dL (2.7-4.5); Potassium 3.5 mEq/L (3.5-5.1); Sodium 140 mEq/L (136-145); Triglycerides 168 mg/dL (< 150); eGFR For African Americans > 60 (> 60); eGFR For Non-African Americans > 60 (> 60)
[2021-12-11 05:30] VITALS: TEMP 96.9
[2021-12-11] MEDS ORDERED: Regadenoson 0.4 MG/5 ML SYRINGE IVP ONE (05:38)
[2021-12-11] MEDS ORDERED: *HR* LORazepam 1 MG TABLET PO PRN (08:20)
[2021-12-11] MEDS ORDERED: Levalbuterol 1 PUFF INHALER IH PRN (08:20)
[2021-12-11] MEDS: Apixaban 5 MG TABLET PO SCH (08:45)
[2021-12-11] MEDS: Acetaminophen 325 MG TABLET PO PRN (08:58)
[2021-12-11] MEDS ORDERED: Aspirin 81 MG TAB.CHEW PO SCH (09:00)
[2021-12-11] MEDS ORDERED: BuPROPion XL (24 HR) 150 MG TABLET PO SCH (09:00)
[2021-12-11 10:57] VITALS: BP 134/68; PULSE 62; O2SAT 98
[2021-12-11] MEDS ORDERED: Ranolazine 500 MG TAB.ER.12H PO SCH (11:00)
[2021-12-11] MEDS ORDERED: Gabapentin 300 MG CAPSULE PO SCH (21:00)
== END 2021-12-11 14:03 | disposition home or self-care (01) ==
LOC: 3NENU 16:57 → EMEROOARM 16:57 → SUATTDRO 20:00 → 3NENU 21:57
PROVIDERS: ADMIT Internal Medicine; ATTEND Internal Medicine